=== PATIENT | male | born 1935 | race Caucasian/White ===

== ENCOUNTER 2018-03-07 09:41 | Outpatient (CLI) | payer MEDICARE ==
[2018-03-07] MEDS ORDERED: Iopamidol 370 76% 100 ML VIAL ONE (11:16)
--- NOTE | 2018-03-07 12:53 | CT ---
CTA ABDOMEN AND PELVIS WITH BILATERAL LOWER EXTERMITY RUNOFF: INDICATIONS: History of peripheral vascular disease and a nonhealing ulcer of the left foot. TECHNIQUE: Multiple CTA images were obtained of the abdomen and pelvis with bilateral lower extremity runoff, an d 3D reformatted images were constructed at a separate work station. FINDINGS: There is cardiomegaly with small bilateral pleural effusions and bibasilar atelectasis. There is pro minent paraseptal emphysema involving both lung bases. There is partial visualization of cardiac pacemaker leads involving the heart. There is prominent fatty infiltration of the liver. There are calcifications involving the pancreatic head and body, likely related to prior pancreatitis . There are bilateral renal cysts. The adrenal glands and spleen appear within normal limits. There is a prominent amount of retained stool within the rectum. There are scattered diverticula inv olving the colon. The small bowel is of normal caliber. No acute fracture is evident. There is scattered degenerative and osteoarthritic change. There is complete occlusion of the proximal to mid right superficial femoral artery. There are vascu lar collaterals going to the right BKA limb through the profunda femoral. There is no revascularizat ion seen involving the right superficial femoral or right popliteal artery. The left external iliac and left common femoral artery appear patent. The bifurcation is patent. Th ere is some mild narrowing involving the proximal left profunda artery. There are moderate to severe multifocal areas of stenosis involving the distal left superficial femoral vein and proximal left po pliteal vein. The tibioperoneal trunk is patent. The left anterior tibial and posterior tibial jesusita bijal demonstrate multifocal high-grade regions of stenosis. The peroneal artery appears patent to th e level of the ankle. There is at least single artery runoff to the level of the ankle. The renal, SMA, and celiac arteries are widely patent. There is high-grade stenosis involving the pr oximal aspect of the inferior mesenteric artery, on image 88 of series 2. IMPRESSION: 1. Multifocal areas of moderate to high grade stenosis involving the distal left superficial femoral artery and the proximal left popliteal artery with multifocal areas of high grade stenosis involving the left anterior tibial and the left posterior tibial artery. 2. Complete occlusion of the right superficial femoral artery from its mid to distal junction, throu gh the level of the right popliteal artery. 3. High grade stenosis involving the proximal left inferior mesenteric artery. 4. Findings of congestive heart failure with cardiomegaly and bilateral pleural effusions. 5. Extensive paraseptal emphysema. 6. Fatty liver. 7. Bilateral renal cysts. 8. Prominent amount of retained stool within the rectum. POS: [facility]
== END 2018-03-07 09:42 | disposition home or self-care (01) ==
LOC: CT 09:41
PROVIDERS: ATTEND Internal Medicine Cardiovascular Disease
DX: I73.9 Peripheral vascular disease, unspecified (principal); I70.203 Unspecified atherosclerosis of native arteries of extremities, bilateral legs; K55.1 Chronic vascular disorders of intestine; K76.0 Fatty (change of) liver, not elsewhere classified; N28.1 Cyst of kidney, acquired; J43.9 Emphysema, unspecified; J90 Pleural effusion, not elsewhere classified; I50.9 Heart failure, unspecified; I51.7 Cardiomegaly; K59.00 Constipation, unspecified
CPT/HCPCS: 75635; 82565

== ENCOUNTER 2018-03-08 09:00 | Outpatient (CLI) | payer MEDICARE ==
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
== END 2018-03-08 09:01 | disposition home or self-care (01) ==
LOC: WCC 09:00
PROVIDERS: ATTEND Family Medicine
DX: E11.621 Type 2 diabetes mellitus with foot ulcer (principal); L97.529 Non-pressure chronic ulcer of other part of left foot with unspecified severity; I10 Essential (primary) hypertension; I25.5 Ischemic cardiomyopathy; Z85.51 Personal history of malignant neoplasm of bladder; I25.10 Atherosclerotic heart disease of native coronary artery without angina pectoris; I48.91 Unspecified atrial fibrillation; I73.9 Peripheral vascular disease, unspecified; F03.90 Unspecified dementia, unspecified severity, without behavioral disturbance, psychotic disturbance, mood disturbance, and anxiety
CPT/HCPCS: 36416; 97602; 99204; G0463

== ENCOUNTER 2018-03-22 10:36 | Outpatient (CLI) | payer MEDICARE ==
--- NOTE | 2018-03-22 12:14 | PRG ---
DATE OF SERVICE: 03/22/2018 HISTORY: Mr. Jem Owens is a very pleasant 82-year-old gentleman, accompanied by his , who pr esents to the Wound Center for evaluation of an ulceration of the dorsum of the left foot. At the ti me of the patient's last visit, the patient's stated that the ulceration over the dorsum of the left foot was first noted 9 months previously. She stated that the ulcer "just appeared." The patie nt's stated that she had been cleansing the ulceration twice a day with Cetaphil and dressing th e wound with a clean bandage, specifically gauze, secured with tape. After being seen in the Wound C enter, dressing changes of Medihoney, gauze, and Mepilex border were initiated. These dressing boothe es have been performed every other day after cleansing and irrigation again with the assistance of th e patient's . PHYSICAL EXAMINATION: VITAL SIGNS: Temperature 97.7, pulse 81, respirations 21, blood pressure 113/61, Accu-Chek 111. EXTREMITIES: The ulceration over the dorsum of the left foot measures approximately 1.4 x 1.0 cm. T he dimensions of the wound at the time of the patient's last visit were approximately 1.3 x 1.6 cm. No purulent drainage is associated with the wound. No cellulitis of the left foot is appreciated. N o maceration of the skin of the periwound is noted. No significant edema of the left foot is present on exam today. ASSESSMENT AND PLAN: 1. Ulceration over dorsum of left foot as described above. Dressing changes of Medihoney gauze, and Mepilex border will be continued every other day after cleansing and irrigation with the assistance of the patient's . Arrangements were previously made for the home delivery of dressing supplies. I will see Mr. Owens again in 2 weeks. 2. History of subdural hematoma. 3. Ischemic cardiomyopathy. 4. Diabetes mellitus, type 2. The patient's Accu-Chek in clinic today is 111. The patient's h as been reminded that, for optimal wound healing, the patient's blood glucoses should remain below 15 0. 5. History of hypertension. 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 7. Coronary artery disease. 8. Paroxysmal atrial fibrillation. 9. Peripheral vascular disease. 10. Dementia.
== END 2018-03-22 10:37 | disposition home or self-care (01) ==
LOC: WCC 10:36
PROVIDERS: ATTEND Family Medicine
DX: E11.621 Type 2 diabetes mellitus with foot ulcer (principal); L97.529 Non-pressure chronic ulcer of other part of left foot with unspecified severity; I25.5 Ischemic cardiomyopathy; I10 Essential (primary) hypertension; I25.10 Atherosclerotic heart disease of native coronary artery without angina pectoris; I48.0 Paroxysmal atrial fibrillation; E11.51 Type 2 diabetes mellitus with diabetic peripheral angiopathy without gangrene; F03.90 Unspecified dementia, unspecified severity, without behavioral disturbance, psychotic disturbance, mood disturbance, and anxiety; Z87.820 Personal history of traumatic brain injury; Z85.51 Personal history of malignant neoplasm of bladder
CPT/HCPCS: 97602

== ENCOUNTER 2018-04-05 09:41 | Inpatient (IN) | payer MEDICARE ==
[2018-04-05] MEDS ORDERED: Sodium Chloride 0.9% 15 ML NEB ONE (10:00)
--- NOTE | 2018-04-05 10:57 | PRG ---
DATE OF SERVICE: 04/05/2018 HISTORY: Mr. Jem Owens is a very pleasant 82-year-old gentleman accompanied by his bogdan cotto presents to the [facility]ound Center for evaluation of an ulceration of the dorsum of the left foot. At t he time of the patient's visit on 03/08/2018, the patient's stated that the ulceration over the dorsum of the left foot was first noted in 9 months previously. She stated that the ulceration "just appeared." The patient's stated that she had been cleansing the ulceration twice a day with Ce taphil and dressing the wound with a clean bandage, specifically gauze secured with tape. After albert hall seen in the Wound Center, dressing changes of Medihoney, gauze and Mepilex border were initiated. These dressing changes were performed every other day after cleansing and irrigation again with the a ssistance of the patient's . Since the patient's last visit the patient's states Mr. Owens 's wound has increased in size. She states that significant drainage is associated with the wound. In addition erythema of the skin surrounding the wound is present. PHYSICAL EXAMINATION: VITAL SIGNS: Temperature 97.6, pulse 82, respirations 20, blood pressure 106/51. Accu-Chek 125. EXTREMITIES: The ulceration over the dorsum of the left foot measures approximately 2.0 x 2.0 cm. T he dimensions of the wound at the time of the patient's last visit were approximately 1.4 x 1.0 cm. No purulent drainage is associated with the wound. Erythema of the skin surrounding the wound is pre sent. No maceration of the skin of the periwound is noted. No significant edema of the left foot is present on exam today. ASSESSMENT AND PLAN: 1. Left foot cellulitis associated with the ulceration of dorsum of left foot. I have discussed the treatment plan with the patient's primary care physician, Dr. Pham. Arrangements will be made fo r admission with IV antibiotics and imaging. I have explained to the patient's that MRI of the left foot may be obtained to look for findings suggestive of osteomyelitis. In addition, arrangement s will be made for the patient to be seen in consultation by Dr. Neal. The patient's states t hat Mr. Owens has undergone percutaneous revascularization of the left lower extremity by Dr. Neal previously. The patient's understands and is in agreement with the preceding treatment plan. 2. History of subdural hematoma. 3. Ischemic cardiomyopathy. 4. Diabetes mellitus type 2. The patient's Accu-Chek in clinic today is 125. 5. History of hypertension. 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 7. Coronary artery disease. 8. Paroxysmal atrial fibrillation. 9. Peripheral vascular disease. 10. Dementia.
[2018-04-05] MEDS ORDERED: Calcium Carbonate 500 MG ChewTAB PO PRN (12:23)
[2018-04-05] MEDS ORDERED: traZODone HCl 50 MG TAB PO PRN (12:23)
[2018-04-05] MEDS ORDERED: Diabetic Tussin 200 MG/10 ML UDCUP PO PRN (12:23)
[2018-04-05] MEDS ORDERED: hydrALAZINE 20 MG/ML VIAL SLOW IVP PRN (12:23)
[2018-04-05] MEDS ORDERED: Benzonatate 100 MG CAP PO PRN (12:23)
[2018-04-05] MEDS ORDERED: Bisacodyl 5 MG TAB PO PRN (12:23)
[2018-04-05] MEDS ORDERED: Nitroglycerin 0.4 MG TAB (25 Tab Bottle) SL PRN (12:23)
[2018-04-05] MEDS ORDERED: Loratadine 10 MG TAB PO PRN (12:23)
[2018-04-05] MEDS ORDERED: Ondansetron PF 4 MG/2 ML Vial IVP PRN ×2 (12:23)
[2018-04-05] MEDS ORDERED: traMADol HCl 50 MG TAB PO PRN (12:23)
[2018-04-05] MEDS ORDERED: Acetaminophen 325 MG TAB PO PRN (12:23)
[2018-04-05] MEDS ORDERED: Mag-Al 1200 mg/1200 mg/30 ML UDCUP PO PRN (12:23)
[2018-04-05] MEDS ORDERED: Senokot 8.6 MG TAB PO PRN (12:23)
[2018-04-05] MEDS ORDERED: cloNIDine 0.1 MG TAB PO PRN (12:23)
[2018-04-05 13:02] LABS: #Eosinphils 0.1 thou/uL (0.0-0.7); #Lymphocytes 0.8 thou/uL (1.20-3.40); #Monocytes 0.6 thou/uL (0.11-0.59); #Neutrophils 5.9 thou/uL (1.40-6.50); %Basophils 0.3 % (0.0-1.0); %Eosinophils 1.5 % (0.0-10.0); %Lymphocytes 10.1 % (21.0-51.0); %Monocytes 8.1 % (0.0-10.0); Hemoglobin 14.3 g/dL (14.0-18.0); Mean Corpuscular HGB CONC 32.3 g/dL (32.0-36.0); Mean Corpuscular Hemoglobin 32.4 pg (27.0-31.0); Mean Platelet Volume 9.5 fL (7.4-10.4); Platelet Count 157 thou/uL (130-400); RBC Distribution Width 13.7 % (11.5-14.5); Red Blood Cell (RBC) Count 4.41 mill/uL (4.70-6.10); White Blood Cell (WBC) Count 7.4 thou/uL (4.8-10.8)
[2018-04-05 13:17] LABS: ALT (SGPT) 17 U/L (8-55); AST (SGOT) 18 U/L (5-34); Albumin 3.3 g/dL (3.4-4.8); Alkaline Phosphatase 101 U/L (40-150); Anion Gap 10 mmol/L (10-20); BUN (Urea Nitrogen) 22 mg/dL (8.4-25.7); Bilirubin, Total 1.7 mg/dL (0.2-1.2); Calc. Creatinine Clearance 0 mL/min (70-130); Calcium 8.4 mg/dL (7.8-10.44); Carbon Dioxide 34 mmol/L (23-31); Chloride 102 mmol/L (98-107); Estimated GFR-MDRD 81; Globulin 2.2 g/dL (2.4-3.5); Glucose 104 mg/dL (83-110); Potassium 3.3 mmol/L (3.5-5.1); Protein, Total 5.5 g/dL (5.8-8.1); Sodium 143 mmol/L (136-145)
--- NOTE | 2018-04-05 13:45 | RAD ---
LEFT FOOT 3 VIEWS: Date: 04/05/18 HISTORY: Chronic foot ulcer. Assess for osteomyelitis. Site of the foot ulcer is not specified. FINDINGS: There are prominent enthesophytes from the plantar and posterior calcaneus. Mild degenerative changes in the intertarsal joints and at the tarsometatarsal joints. The metatarsals and phalanges appear un remarkable. MTP and IP joints unremarkable with mild DJD at the first MTP joint. No lytic or destruc tive process seen. On the oblique view, there is a linear lucency through the distal aspect of the proximal phalanx of t he second toe. This is not seen in the frontal AP projection and is artifactual. IMPRESSION: No plain film evidence of osteomyelitis identified. POS: [facility]
[2018-04-05] MEDS ORDERED: Potassium Chloride 20 MEQ TAB PO SCH (15:15)
[2018-04-05 15:45] VITALS: BMI 20.3
--- NOTE | 2018-04-05 18:33 | HP ---
DATE OF ADMISSION: 04/05/2018 PRIMARY CARE PHYSICIAN: Dr. Willian Pham. CHIEF COMPLAINT: Nonhealing left foot ulcer. HISTORY OF PRESENTING ILLNESS: Mr. Owens is a very pleasant 82-year-old male with known history of ischemic cardiomyopathy status post biventricular defibrillator pacemaker placement as well as diabet es, hypertension, history of bladder cancer, coronary artery disease, and paroxysmal atrial fibrillat ion, chronic anticoagulation, severe peripheral arterial disease status post right BKA presented as a direct admit from the [facility] today for nonhealing left foot ulcer. History is mainly obt ained by the patient and his present in the room. Case has been discussed with the Wound Care [facility] enter and electronic medical records have been reviewed. The patient reports that he recently underwent a vascular study by Dr. Neal for his left foot. The y report that he has done some sort of laser procedure to open up the blockages, but he was found to have significant blockages in his left leg. They have first noticed this ulcer on his left foot about 10 months ago. Since then despite the woun d care, it has gotten worse. He was found to have left foot cellulitis associated with ulceration of the dorsum of the left foot. Care was discussed with his primary care physician by the wound care p charles, Dr. Hsu and decision was made that he would be admitted for IV antibiotics and imaging. The patient cannot undergo an MRI because of the AICD. He is now being admitted to medical floor a s a direct admit for further evaluation of the ulcer and the cellulitis. Currently, he is asymptomatic. He denies any fever or chills. He denies any trauma. He denies any pain in his leg. No paraesthesias. No muscle weakness. PAST MEDICAL HISTORY: 1. Atrial fibrillation on chronic anticoagulation. 2. Chronic ischemic cardiomyopathy with EF of 15%-20% with AICD in place. 3. Chronic systolic heart failure, follows up with Dr. Iraheta. 4. Hypertension. 5. Dyslipidemia. 6. Diabetes mellitus type 2. 7. Coronary artery disease. 8. Benign prostatic hypertrophy. 9. Hypothyroidism. 10. Dementia. 11. History of bladder cancer requiring resection. 12. History of subdural hematoma in the past. 13. History of peripheral vascular disease, status post right below knee amputation. PAST PSYCHIATRIC HISTORY: Reviewed and negative. PAST SURGICAL HISTORY: 1. Right BKA secondary to diabetic foot. 2. Bladder tumor resection. 3. History of tracheostomy and PEG tube placement and subsequent reversal. 4. History of head injury. 5. Colonoscopy. 6. Left knee surgery. 7. Cataract surgery. 8. AICD placement. ALLERGIES: 1. YARI inhibitors and ARBs. 2. BETA BLOCKERS which cause hypotension. SOCIAL HISTORY: He is and lives with his family. is at the bedside. He quit smoking m ore than 10 years ago. No history of drug or alcohol abuse. FAMILY HISTORY: Diabetes and hypertension among several family members. ALLERGIES: No strong family history of cancer or stroke. CURRENT HOME MEDICATIONS: Not updated as yet. has gone to their car to get the medications. T hey get the medicines in mail by [facility]. REVIEW OF SYSTEMS: Twelve point review of systems was done. It is negative except for those mention ed in the history and physical. LABORATORY DATA AND IMAGING DATA: I have ordered CBC and base met on him. His CBC shows WBC 7.4 wit h 80% neutrophils, otherwise unremarkable. Serum chemistry shows potassium of 3.3, bicarbonate 34, t otal bilirubin 1.7, BNP 1246. X-ray of the foot was ordered by my staff and 3-view x-ray of the left foot does not show any evidence of osteomyelitis. PHYSICAL EXAMINATION: VITAL SIGNS: Stable. GENERAL: No acute distress, awake, alert, oriented x3, resting comfortably in bed, is at bedsid e. HEENT: Mucous membrane is moist and pink. No oropharyngeal exudate or erythema. Head is normocepha lic, atraumatic. Pupils are equal and reactive to light and accommodation. Extraocular movement int act. NECK: Supple without any lymphadenopathy, JVD or bruit. CHEST: Clear to auscultation without any wheezing, rales or rhonchi. Irregularly irregular rhythm w ithout any significant murmur. ABDOMEN: Soft, nontender and nondistended with positive bowel sounds. EXTREMITIES: Left lower extremity examination showed pitting edema +2 extending from the foot to mid calf. His left foot is in the dressing. No obvious oozing noticed on the dressing. No obvious edu n. He is status post right BKA. NEUROLOGIC: Nonfocal. SKIN: Free of any rashes or bruises. Feels warm and dry to touch. PSYCHIATRIC: Normal affect. IMPRESSION AND PLAN: 1. Chronic nonhealing left lower extremity diabetic ulcer. The patient has evidence of poor circula tion on aortogram done by Dr. Neal in 03/07/2018. I am not sure if any intervention was done at th is time, but it seems like the patient will require some sort of angioplasty for proper healing of hi s left lower extremity ulcer. There is no evidence of osteomyelitis at this time. We will request c onsultation with Infectious Disease and wound care to start with, and possibly with Dr. Neal or CV surgeon based on his recommendations. At this time, he will be treated with broad spectrum IV antibi otics and we will send blood cultures. There is no evidence to suggest sepsis at this time. 2. Left leg cellulitis, see #1. 3. Severe peripheral vascular disease. We will consult Cardiovascular Surgery for left lower extrem ity angioplasty if the patient agrees to that and if Dr. Neal from Cardiology recommends that. 4. Hypokalemia. We will replace potassium and recheck in the morning. 5. Elevated BNP. The patient has chronically elevated BNP secondary to his history of ischemic card iomyopathy. Currently, he is asymptomatic and not in any decompensated congestive heart failure. We will resume his home medications of Demadex once confirmed. Ischemic cardiomyopathy, status post AI CD placement. The patient is allergic to YARI INHIBITORS, ARBs, and BETA BLOCKERS. He will be restar tatyana on his diuretic. 6. Chronic atrial fibrillation. We will resume his anticoagulation with Eliquis 2.5 mg p.o. b.i.d. For the medications, we will reconsult. He was on digoxin in the past. 7. Benign prostatic hypertrophy. Continue home medication of Proscar once dose is confirmed. 8. Hypothyroidism. Resume Synthroid once the dose is confirmed. 9. Dyslipidemia. Resume Lipitor once the dose is confirmed. 10. Microcytic anemia. Continue vitamin B12 and B6 as per home dosages per the prior H&P. 11. Deep venous thrombosis and gastrointestinal prophylaxis, on p.r.n. medications. DISPOSITION: Mr. Owens is currently being admitted to the hospital for evaluation and care of nonhe aling chronic left foot diabetic ulcer. Estimated length of stay at this time is at least 2-3 midnig hts. Further management will depend upon his clinical course.
[2018-04-05] MEDS ORDERED: guaiFENesin ER 600 MG TAB PO PRN (19:18)
[2018-04-05] MEDS ORDERED: Azelastine 137 MCG/Spray 30 ML NS PRN (19:18)
[2018-04-05] MEDS ORDERED: VANCOMYCIN IVPB PRN (20:03)
[2018-04-05] MEDS ORDERED: Insulin Glargine 14 UNITS in Pre-Filled Syringe 1 EACH SC SCH (21:00)
[2018-04-05] MEDS ORDERED: INSULIN DETEMIR SC SCH (21:00)
[2018-04-05] MEDS ORDERED: Atorvastatin Calcium 20 MG TAB PO SCH (21:00)
[2018-04-05] MEDS: Apixaban 2.5 MG TAB PO SCH (21:28)
[2018-04-05] MEDS: Piperacillin/Tazobactam 3.375 GM in Sodium Chloride 0.9% 100 ML IVPB SCH (21:29)
[2018-04-05] MEDS: Famotidine 20 MG TAB PO SCH (21:29)
[2018-04-05] MEDS ORDERED: Vancomycin HCl 1 GM in Premix Bag 1 BAG IVPB SCH (22:00)
[2018-04-05 23:58] LABS: Bilirubin Small (Negative); Blood, Urine Negative (Negative); Clarity CLEAR (Clear); Glucose, Urine (Dipstick) Negative (Negative); Leukocyte Negative (Negative); Nitrite Negative (Negative); Protein, Urine (Dipstick) 30 mg/dL (Neg-Trace); Specific Gravity, Urine 1.015 (1.002-1.036)
[2018-04-06 00:01] LABS: Bacteria/HPF None Seen HPF (None Seen); Hyaline Casts/LPF 0-3 HYALINE CAST LPF (0-3 Hyaline); RBC/HPF 0-3 HPF (0-3); Squamous Epithelial None Seen HPF (0-3); WBC/HPF None Seen HPF (0-3)
[2018-04-06] MEDS: Piperacillin/Tazobactam 3.375 GM in Sodium Chloride 0.9% 100 ML IVPB SCH ×2 (03:35→12:24)
[2018-04-06 06:04] LABS: #Eosinphils 0.1 thou/uL (0.0-0.7); #Lymphocytes 0.7 thou/uL (1.20-3.40); #Monocytes 0.6 thou/uL (0.11-0.59); %Basophils 0.4 % (0.0-1.0); %Eosinophils 1.9 % (0.0-10.0); %Monocytes 9.8 % (0.0-10.0); %Neutrophils 76.9 % (42.0-75.0); Hemoglobin 14.1 g/dL (14.0-18.0); Mean Corpuscular HGB CONC 32.4 g/dL (32.0-36.0); Mean Corpuscular Hemoglobin 32.7 pg (27.0-31.0); Mean Platelet Volume 9.1 fL (7.4-10.4); Platelet Count 148 thou/uL (130-400); RBC Distribution Width 13.7 % (11.5-14.5); Red Blood Cell (RBC) Count 4.32 mill/uL (4.70-6.10); White Blood Cell (WBC) Count 6.5 thou/uL (4.8-10.8)
[2018-04-06 06:14] LABS: Anion Gap 11 mmol/L (10-20); BUN (Urea Nitrogen) 23 mg/dL (8.4-25.7); Calc. Creatinine Clearance 68 mL/min (70-130); Calcium 8.7 mg/dL (7.8-10.44); Carbon Dioxide 30 mmol/L (23-31); Chloride 106 mmol/L (98-107); Estimated GFR-MDRD 88; Glucose 146 mg/dL (83-110); Potassium 3.7 mmol/L (3.5-5.1); Sodium 143 mmol/L (136-145)
[2018-04-06] MEDS: Famotidine 20 MG TAB PO SCH (08:18)
[2018-04-06] MEDS: Apixaban 2.5 MG TAB PO SCH (08:20)
--- NOTE | 2018-04-06 08:55 | CON ---
DATE OF CONSULTATION: 04/05/2018 REASON FOR CONSULTATION: Ulcer in dorsal aspect of the left foot. HISTORY OF PRESENT ILLNESS: An 82-year-old who has a history of ischemic cardiomyopathy with AICD in place, an EF of 15%-20%, hypertension, type 2 diabetes, and chronic lung disease with honeycombing and recurrent admissions for infectious pneumonitis. I saw him in October and at that time, he was given antimicrobials with a rotating schedule, but seems to have improved the frequency of readmissions in fact they has not had admissions since October of last year for pneumonia, but now he has developed this chronic ulcer in the dorsal aspect of the left foot, round shaped, is painless, although patient has significant diabetic neuropathy. The patient was admitted because of worsening of the appearance of the ulceration. He has had a prior right BKA and there was a concern in the part of the family regarding possibility of amputation. Patient recently had a revascularization procedure of the left lower extremity performed by Dr. Neal. Currently, he is awake. Denies any headaches, visual symptoms, sore throat, odynophagia, or dysphagia. No cough, sputum production, or chest pain. No abdominal pain, diarrhea, or genitourinary symptoms. PAST MEDICAL HISTORY: Subdural hematoma, ischemic cardiomyopathy, type 2 diabetes, hypertension, interstitial lung disease with honeycombing/COPD, transitional cell CA of the bladder in remission, coronary artery disease, ischemic cardiomyopathy with EF 15-20%, peripheral vascular disease, prior right BKA, dementia. PAST SURGICAL HISTORY: AICD implant, tracheostomy, gastrostomy tube. CURRENT MEDICATIONS: Maalox, Tessalon, Dulcolax, Tums, Catapres, Pepcid, Robitussin, Apresoline, Claritin, Nitrostat, trazodone. PHYSICAL EXAMINATION: VITAL SIGNS: T-max 97.8, blood pressure 107/60, pulse 81, respirations 18, O2 sat 95%. SKIN: Shows the round-shaped ulcer in the dorsal aspect of the left foot, measuring about 1.5 cm. There is an area of kind of dark reddish tissue at the base, possible tendon exposure along the middle portion of this ulceration. No significant undermining. Very mild pinkish erythema surrounding the margins. The right BKA stump appears normal and the patient has a peripheral IV access. No Joseph catheter. HEENT: Ocular movements are conjugate. Oral cavity normal. NECK: Supple. No jugular venous distention. LUNGS: With symmetric air entry. HEART: S1, S2, regular rate. ABDOMEN: Soft, not distended, no bladder distention. EXTREMITIES: He is able to move extremities on command. NEUROLOGIC: He is awake, oriented, follows commands. Recollection is limited from his cognitive issues. LABORATORY AND DIAGNOSTIC DATA: White cell count 7.4, hemoglobin 14, platelets 157,000, 80% neutrophils. Potassium 3.3, creatinine 0.9, bilirubin 1.7. Transaminases normal, alkaline phosphatase 101, albumin 2.3. The patient had an x-ray, which showed no evidence of bony abnormalities. Patient has an aorta with runoff, which showed multiple areas of obstruction in the left lower extremity, which led to the revascularization procedure. It appears to have been an angioplasty and he may have had some other interventions as well. ASSESSMENT: Type 2 diabetes; chronic obstructive pulmonary disease with honeycombing; ischemic cardiomyopathy, EF 15-20%; peripheral vascular disease with prior [id number], right side; chronic ulcer in right foot dorsal aspect , round shaped, which has enlarged a little bit since last visit. DISCUSSION: The ulcer appears more consistent with the arterial insufficiency ulceration rather than venous insufficiency. The absence of pain is most likely due to diabetic neuropathy. I do not think there is evidence to suggest any infectious complication at this point and hopefully the revascularization procedure will assist in the healing of this problem. Continue management limited to the wound care only. GRACIE
[2018-04-06] MEDS ORDERED: Donepezil HCl 10 MG TAB PO SCH (09:00)
[2018-04-06] MEDS ORDERED: Digoxin 0.125 MG TAB PO SCH (09:00)
[2018-04-06] MEDS ORDERED: Cyanocobalamin (Vitamin B-12) 1,000 MCG TAB PO SCH (09:00)
[2018-04-06] MEDS ORDERED: Finasteride 5 MG TAB PO SCH (09:00)
[2018-04-06] MEDS ORDERED: Dextrose 5% in Water 1,000 ML IV PRN (09:16)
[2018-04-06] MEDS ORDERED: HumaLOG 300 UNITS/3 ML VIAL SC PRN ×2 (09:16)
[2018-04-06] MEDS ORDERED: Dextrose 50% Abboject 50 ML SYRINGE SLOW IVP PRN (09:16)
[2018-04-06 13:27] VITALS: BP 111/73; TEMP 97.7
--- NOTE | 2018-04-06 14:17 | PDOC.PN ---
- Subjective Encounter Start Date: 04/06/18 Encounter Start Time: 14:15 Subjective: feels well. no new complaints -: care discussed w at bedside. -: declines any DC needs if Dced home. - Objective MAR Reviewed: Yes Vital Signs & Weight: Vital Signs (12 hours) Temp Pulse Resp BP BP Pulse Ox 04/06/18 12:00 97.7 F 80 18 111/73 98 04/06/18 08:19 83 04/06/18 08:00 97.6 F 83 18 92 L 04/06/18 07:35 97.6 F 83 16 113/68 04/06/18 04:24 98.0 F 79 18 106/66 92 L Weight Admit Weight 158 lb 4.8 oz Weight 158 lb 4.8 oz Result Diagrams: 04/06/18 05:22 04/06/18 05:22 Additional Labs: Accuchecks 04/06/18 04/05/18 04/05/18 04:29 21:06 09:50 POC Glucose 129 H 145 H 125 H Microbiology 04/05/18 15:31 Venous blood - Right Arm Blood Culture - Preliminary Specimen has been received and culture in progress. No Growth to date. 04/05/18 15:24 Venous blood - Left Arm Blood Culture - Preliminary Specimen has been received and culture in progress. No Growth to date. labs reviewed Phys Exam - Physical Examination Constitutional: NAD HEENT: PERRLA, moist MMs, sclera anicteric, oral pharynx no lesions Neck: no nodes, no JVD, supple, full ROM Respiratory: no wheezing, no rales, no rhonchi, clear to auscultation bilateral Cardiovascular: RRR, no significant murmur, no rub Gastrointestinal: soft, non-tender, no distention, positive bowel sounds Musculoskeletal: no edema, pulses present Neurological: non-focal, normal sensation, moves all 4 limbs Dx/Plan (1) Diabetic foot ulcer Code(s): E11.621 - TYPE 2 DIABETES MELLITUS WITH FOOT ULCER; L97.509 - NON- PRESSURE CHRONIC ULCER OTH PRT UNSP FOOT W UNSP SEVERITY Status: Acute Qualifiers: Laterality: left (2) Ischemic cardiomyopathy Code(s): I25.5 - ISCHEMIC CARDIOMYOPATHY Status: Chronic (3) AICD (automatic cardioverter/defibrillator) present Code(s): Z95.810 - PRESENCE OF AUTOMATIC (IMPLANTABLE) CARDIAC DEFIBRILLATOR Status: Chronic (4) Atrial fibrillation Code(s): I48.91 - UNSPECIFIED ATRIAL FIBRILLATION Status: Chronic (5) Chronic anticoagulation Code(s): Z79.01 - RADIOACTIVITY TECHNICIAN (CURRENT) USE OF ANTICOAGULANTS Status: Chronic (6) Diabetes mellitus type 2 Code(s): E11.9 - TYPE 2 DIABETES MELLITUS WITHOUT COMPLICATIONS Status: Chronic (7) Dyslipidemia Code(s): E78.5 - HYPERLIPIDEMIA, UNSPECIFIED Status: Chronic (8) HYPERTENSION Status: Chronic (9) PAD (peripheral artery disease) Code(s): I73.9 - PERIPHERAL VASCULAR DISEASE, UNSPECIFIED Status: Chronic Comment: s/p R BKA - Plan plan discussed w/ family, out of bed/ambulate, DVT proph w/SCDs Wound Pictures noted.no evidence of infection,no cellulitis.Stop ABx -: discussed w ID . -: will consult per Pt's request for PAD-recent angiogram done -: if no further clinical intervention required inpt,will DC home -: declines need for HH/placement.Hd stable. * .home meds as below. Review of Systems - Review of Systems Constitutional: negative: fever, chills, sweats, weakness, malaise, other ENT: negative: Ear Pain, Ear Discharge, Nose Pain, Nose Discharge, Nose Congestion, Mouth Pain, Mouth Swelling, Throat Pain, Throat Swelling, Other Respiratory: negative: Cough, Dry, Shortness of Breath, Hemoptysis, SOB with Excertion, Pleuritic Pain, Sputum, Wheezing Cardiovascular: negative: chest pain, palpitations, orthopnea, paroxysmal nocturnal dyspnea, edema, light headedness, other Gastrointestinal: negative: Nausea, Vomiting, Abdominal Pain, Diarrhea, Constipation, Melena, Hematochezia, Other Genitourinary: negative: Dysuria, Frequency, Incontinence, Hematuria, Retention , Other Musculoskeletal: negative: Neck Pain, Shoulder Pain, Arm Pain, Back Pain, Hand Pain, Leg Pain, Foot Pain, Other Skin: negative: Rash, Lesions, Sinan, Bruising, Other Neurological: negative: Weakness, Numbness, Incoordination, Change in Speech, Confusion, Seizures, Other - Medications/Allergies Allergies/Adverse Reactions: Allergies Allergy/AdvReac Type Severity Reaction Status Date / Time YARI Inhibitors Allergy Mild Verified 04/05/18 18:27 ARB-Angiotensin Receptor Allergy Mild Verified 04/05/18 18:28 Antagonist Beta-Blockers Allergy Mild Verified 04/05/18 18:28 (Beta-Adrenergic Bloc Medications: Current Medications Acetaminophen (Tylenol) 650 mg PO Q4H PRN PRN Reason: Headache/Fever or Pain Al Hydroxide/Mg Hydroxide (Maalox) 30 ml PO Q6H PRN PRN Reason: Heartburn or Indigestion Apixaban (Eliquis) 2.5 mg PO BID [facility] Last Admin: 04/06/18 08:20 Dose: 2.5 mg Atorvastatin Calcium (Lipitor) 20 mg PO HS [facility] Last Admin: 04/05/18 21:29 Dose: Not Given Azelastine HCl (Azelastine) 1 ml NS BIDPRN PRN PRN Reason: Allergies Benzonatate (Tessalon) 100 mg PO Q4H PRN PRN Reason: Cough Bisacodyl (Dulcolax) 10 mg PO DAILYPRN PRN PRN Reason: Constipation Calcium Carbonate (Tums) 1,000 mg PO Q4H PRN PRN Reason: Heartburn or Indigestion Clonidine (Catapres) 0.1 mg PO Q4H PRN PRN Reason: Systolic BP > 160 Cyanocobalamin (Vitamin B-12) 500 mcg PO DAILY [facility] Last Admin: 04/06/18 08:19 Dose: 500 mcg Dextrose/Water (Dextrose 50%) 25 gm SLOW IVP PRN PRN PRN Reason: Hypoglycemia Digoxin (Lanoxin) 0.125 mg PO DAILY [facility] Last Admin: 04/06/18 08:19 Dose: 0.125 mg Donepezil HCl (Aricept) 10 mg PO DAILY [facility] Last Admin: 04/06/18 08:19 Dose: 10 mg Famotidine (Pepcid) 20 mg PO BID [facility] Last Admin: 04/06/18 08:18 Dose: 20 mg Finasteride (Proscar) 5 mg PO DAILY [facility] Last Admin: 04/06/18 08:19 Dose: 5 mg Glucagon (Glucagon) 1 mg IM PRN PRN PRN Reason: Hypoglycemia Guaifenesin (Robitussin Sf) 200 mg PO Q4H PRN PRN Reason: Cough Guaifenesin (Mucinex) 600 mg PO Q12H PRN PRN Reason: Cough Hydralazine HCl (Apresoline) 10 mg SLOW IVP Q4H PRN PRN Reason: Systolic BP > 170 Insulin Glargine 14 units/ (Miscellaneous Medication) 0.14 mls @ 0 mls/hr SC [facility] Last Admin: 04/05/18 21:29 Dose: 0.14 mls Dextrose/Water (D5w) 1,000 mls @ 0 mls/hr IV .Q0M PRN PRN Reason: Hypoglycemia Insulin Human Lispro (Humalog) 0 units SC .MODERATE SLIDING SC PRN PRN Reason: Moderate Correctional Scale Insulin Human Lispro (Humalog) 0 units SC .BEDTIME SLIDING SC PRN PRN Reason: Bedtime Correctional Scale Loratadine (Claritin) 10 mg PO DAILYPRN PRN PRN Reason: Sinus Symptoms Nitroglycerin (Nitrostat) 0.4 mg SL Q5MIN PRN PRN Reason: Chest Pain Ondansetron HCl (Zofran) 4 mg IVP Q6H PRN PRN Reason: Nausea/Vomiting Senna (Senokot) 2 tab PO HSPRN PRN PRN Reason: Constipation Tramadol HCl (Ultram) 50 mg PO Q4H PRN PRN Reason: Moderate Pain (4-6) Trazodone HCl (Desyrel) 50 mg PO HSPRN PRN PRN Reason: Insomnia
--- NOTE | 2018-04-07 02:04 | CON ---
DATE OF CONSULTATION: 04/06/2018 INDICATION FOR CONSULTATION: An 82-year-old patient with significant peripheral vascular disease wit h a nonhealing ulcer of the left lower extremity on the foot. We were asked to see him due to the hi story of this peripheral vascular disease. He has recently been seen by Dr. Neal and has had under gone a distal aortogram with a runoff to lower extremities and also intervention to try to open the l eft lower extremity arteries to see if he can get better circulation in order to decrease the risk of amputation of the lower extremity. He has already undergone a previous amputation below the knee on the right lower extremity. He has a nonhealing ulcer. It was felt to be somewhat infected when he was seen [facility] and he was advised admission to the hospital. I believe he has bee n seen by Dr. Ball. There has been no acute infection noted, and according to the records dictated and evaluation by Dr. Neal, there is no further intervention that can be performed at this time due to the severe peripheral vascular disease noted in the left lower extremity. PAST MEDICAL HISTORY: Please refer the notes dictated by the nurse practitioner Frances. SOCIAL HISTORY: Please refer the notes dictated by the nurse practitioner Frances. FAMILY HISTORY: Please refer the notes dictated by the nurse practitioner Frances. REVIEW OF SYSTEMS: Please refer the notes dictated by the nurse practitioner Frances. MEDICATIONS: Please refer the notes dictated by the nurse practitioner Frances. ALLERGIES: Please refer the notes dictated by the nurse practitioner Frances. PHYSICAL EXAMINATION: GENERAL: Reveals an elderly gentleman, who is in no acute distress at this time. He is alert and or iented. He is somewhat older, but is very alert and aware of what is going on. VITAL SIGNS: His blood pressure was 111/73, heart rate is 80 and appears to be regular at this time, respiratory rate is 18. He is afebrile. O2 saturations are 98%. HEENT: Reveals the head to be normocephalic, atraumatic. NECK: Carotid pulses are present. CHEST: Clear to auscultation. There are no rales, rhonchi or wheezing. CARDIOVASCULAR: Reveals a regular rate and rhythm. I did not hear any significant murmurs, heaves, thrills, bruits, or rubs. ABDOMEN: Soft and nontender. Positive bowel sounds are present. EXTREMITIES: Showed evidence of a right [id number] amputation. The left has a nonhealing ulcer of the left foot. I cannot palpate pedal pulses. No popliteal pulses. NEUROLOGIC: He appears to be awake, alert, and oriented. He does follow commands. He answers quest ions appropriately and is still relatively overall coherent. Physical examination otherwise is unremarkable. He is in a wheelchair at this time and has a right B KA. LABORATORY DATA: Please refer to the notes already dictated. IMPRESSION: 1. Nonhealing left lower extremity ulcerations, which is due to his peripheral vascular disease from diabetes and also from history possibly of smoking in the past. We will continue to follow the luis a ent, but most likely he will just need wound care. There is no further intervention that can be perf ormed at this time according to the records. 2. History of diabetes. This will be dealt with by primary care service. 3. History of cardiomyopathy. I did not mention that earlier, but he has cardiomyopathy with ejecti on fraction of 15%-20%, and I believe he already has an AICD in place. We will need this confirmed. He will follow up with his primary care or his primary manager family, which I believe is Dr. Iraheta. At this time, he from a cardiac standpoint would be able to be discharged home later today, as there is very little other we have to offer to this gentleman except for medical management.
--- NOTE | 2018-04-07 08:32 | CON ---
DATE OF CONSULTATION: 04/06/2018 PRIMARY CARE PHYSICIAN: Willian Pham MD PRIMARY ENCEPHALOGRAPHER: Farheen Iraheta MD REFERRING PHYSICIAN: Dr. Puri. REASON FOR CARDIOLOGY CONSULTATION: Peripheral artery disease. HISTORY OF PRESENT ILLNESS: Mr. Owens is a very present funny 82-year-old male with significant history of pulmonary artery disease, diabetes type 2, hypertension, coronary artery disease with history of stent placement in 1999, history of subdermal hematoma, hyperlipidemia, and chronic atrial fibrillation. The patient has a long history of peripheral artery disease. He has a history of right below-knee amputation in 08/2010. The patient's primary mill roll operator is Dr. Iraheta. The patient was referred to Dr. Neal for peripheral artery disease. In November 2017, patient underwent laser atherectomy and angioplasty to the left superficial femoral arteries, left popliteal arteries, and left tibioperoneal trunk; and selective angiography of right common femoral arteries. He underwent CT angiogram with bilateral lower extremity runoff in 02/2018. Due to the result, the patient was told that the patient was not a good candidate for bypass. Yesterday, when the patient was at the wound care doctor's office, Dr. Hsu instructed the patient to present to [facility] for worsening of right foot ulcer evaluation and treatment. The patient was already seen by Wound Care team and Infectious Disease, Dr. Ball today. The patient was told by the wound care nurse that the patient should continue current wound care treatment. Also, Dr. Ball stated that the patient's condition is most likely due to no infectious complications and recommended revascularization procedure for assisting the healing of the site and suggested continued management. During the initial cardiology assessment, the patient denied chest pain, discomfort, palpitations, fluttering in his chest, dizziness, lightheadedness, nausea, vomiting, numbness in the left upper extremities, or any other cardiac complaints. The patient had a history of coronary artery disease with stent placement in 1999 in [place]. The patient has also history of ischemic cardiomyopathy with defibrillator placement in 2003 and latest upgrade was August 2015 to the biventricular AICD. An echocardiogram was done in 02/2016, which shows EF of 15 %-20%, akinesis of anterior wall apex and septum, [id number] mitral valve regurgitation, [id number]-rp-djiwoq tricuspid regurgitation and LAE. Carotid Doppler study was done in 11/2017, which shows moderate stenosis of the left carotid bulb and left ICA, less than 50% stenosis of the right carotid arteries , [id number] atherosclerosis of left bulb and left ICA, mild atherosclerosis of the right CCA. The patient's biventricular AICD was interrogated in 12/2017, which shows VVIR pacing more than 90% and with normal functions. The patient has a history of chronic atrial fibrillation, status post cardioversion in 12/2007. PAST MEDICAL HISTORY: 1. Peripheral artery disease. 2. Chronic atrial fibrillation. 3. Coronary artery disease and history of stent placement in 1999. 4. Hypertension. 5. Diabetes type 2. 6. Chronic systolic heart failure. 7. Ischemic cardiomyopathy with defibrillator placement. 8. Dyslipidemia. 9. History of subdermal hematoma in 2009. 10. 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 He is on Aricept. PAST SURGICAL HISTORY: Coronary artery stent placement in 1999; biventricular defibrillator placement and last upgrade was August 2015; status post right BKA in 08/2010; bladder cancer with chemo bladder rinse in 2005 and 2006, patient on remission at this moment. FAMILY HISTORY: The patient's father has a history of diabetes. The patient's mother has a history of Alzheimer. The patient's older brother has a history of congestive heart failure. SOCIAL HISTORY: He is , has 3 children who are alive and live well. He is an ex-smoker. He quit in 1989. He continues to drink [employer] one glass per day. He drinks one cup of coffee a day and he rarely has soft drink. ALLERGIES: He is allergic to BETA JIAN, YARI INHIBITOR. Both medications make the patient's blood pressure very hypotensive. HOME MEDICATIONS: Synthroid 50 mcg per day; potassium 20 mEq once a day; Eliquis 2.5 mg twice a day; Lipitor 20 mg once a day; digoxin 0.125 mg once a day; Levemir 14 units subcu at night; Mucinex 600 mg p.o. twice a day as needed ; vitamin B6, 100 mg once a day; vitamin B12, 500 mcg per day; finasteride 5 mg once a day, azelastine 1 spray to each naris twice a day as needed, Aricept 10 mg once a day, torsemide 30 mg once a day, levocetirizine dihydrochloride 5 mg once a day. REVIEW OF SYSTEMS: 12-point review of systems was negative, unless mentioned in the HPI. The patient denied hematoma, blood in the stool or urine, or any bruise to the extremities except the ulcer on the left foot. PHYSICAL EXAMINATION: VITAL SIGNS: Blood pressure 111/73, temperature 97.7, pulse 80, respiratory rate 18, O2 saturation 98% with room air. GENERAL: No acute distress. The patient is well developed and well nourished, without any acute distress. HEAD: Normocephalic, atraumatic. EYES: Extraocular muscle movements are intact. ENT: Nasal and oral mucosa moist without lesion. NECK: Supple. No JVD. Normal range of motion. LUNGS: Clear to auscultation bilaterally. No wheeze, rhonchi, or rub noted. CARDIOVASCULAR: Regular rate and rhythm. No significant murmur, hives, thrill , bruit, or rub noted. Very diminished pulses in bilateral popliteal arteries and left posterior tibial pulses. Unable to check pulses on the bilateral dorsal pedis due to the amputation of right foot and dressing on the left foot. Carotid pulses are present without bruit or thrill noted. They have 1 to 2+ pulses with discoloration to the left lower extremity. The patient had not taken yesterday and today's Lasix dose. ABDOMEN: Soft, nontender. No mass to palpate. Nondistended. Hypoactive bowel sounds. MUSCULOSKELETAL: Able to move all extremities. He is using wheelchair at this moment. SKIN: Warm and dry. No skin rash, lesion, or bruise noted. Again, the discoloration to the left lower extremities. NEUROLOGIC: Awake, alert, oriented x4, nonfocal. PSYCHIATRIC: Mood and affect are normal. LABORATORY DATA: WBC 6.5, hemoglobin 14.1, hematocrit 43.3, platelet 148. Sodium 143, potassium 3.7, BUN 23, creatinine 0.83. BNP is actually 1246. DIAGNOSTIC DATA: EKG: There is no EKG in his chart at this moment. The patient's foot x-ray showed no evidence of osteomyelitis. ASSESSMENT AND PLAN: 1. Peripheral artery disease, in November 2017, status post treatment with atherectomy and angioplasty. According to Dr. Neal who performed a CT angio with bilateral runoff in 02/2018, the patient is not a good candidate for bypass and suggested for continued medical treatment only at this moment. The patient is on atorvastatin 20 mg once a day and also Eliquis 2.5 mg twice a day. 2. Chronic atrial fibrillation. The patient's heart rate is stable at this moment with Digoxin 0.125 mg once a day and Eliquis at 2.5 mg twice a day. We would like to continue those medications. 3. Ischemic cardiomyopathy with ejection fraction 15% to 20%. He is on biventricular AICD defibrillator. Unfortunately, the patient cannot tolerate YARI inhibitor or ARB. The patient may not able to tolerate Entresto. At this moment, although the patient's BNP is more than 1000, the patient's condition is stable at this moment. We would like to continue current medication. 4. Chronic systolic heart failure. The patient's condition is stable at this moment with Lasix, which he had not taken today. The patient and family preferred taking that medicine once the patient got home today. 5. Coronary artery disease with stent placement. The patient is on statin medication. The patient cannot tolerate beta jian, YARI, or ARB due to hypotension. The patient's condition is stable at this moment. We would like to continue to monitor. 6. Hypertension. The patient's blood pressure is stable at this moment. 7. Diabetes type 2, managed by the primary care doctor. 8. Hyperlipidemia. The patient is on statin medication. Thank you very much for allowing the Cardiology service to participate in the care of this patient. We will follow along with the patient's care team and make recommendations as appropriate. At this moment, the patient's condition is stable enough to be discharged home, but I would like to defer to Dr. Diaz. GRACIE
--- NOTE | 2018-04-07 14:52 | DIS ---
DATE OF ADMISSION: 04/05/2018 DATE OF DISCHARGE: 04/06/2018 CONDITION AT THE TIME OF DISCHARGE: Stable and improved. DISCHARGE DISPOSITION: Home. DISCHARGE DIAGNOSES: 1. Left foot diabetic ulcer. 2. Chronic ischemic cardiomyopathy. 3. Automatic implantable cardioverter-defibrillator present. 4. Chronic atrial fibrillation. 5. Chronic anticoagulation. 6. Diabetes mellitus type 2. 7. Dyslipidemia. 8. Hypertension. 9. Peripheral arterial disease. DISCHARGE MEDICATIONS: Remain the same as the home medications. Please see admission H and P for de tail. INHOUSE CONSULTATION: 1. Infectious Disease, Dr. Ball. 2. Cardiology, Dr. Blayne Diaz. PROCEDURES DONE IN THE HOSPITAL: X-ray of the foot, which has no evidence of osteomyelitis. HISTORY OF PRESENTING ILLNESS AND BRIEF HOSPITAL COURSE: Mr. Owens is an 82-year-old old male with known history of diabetes, ischemic cardiomyopathy, status post AICD as well as hypertension, dyslipi demia, coronary artery disease, who presented as a direct admit from wound care clinic. He was noted to have difficulty to heal chronic ulcer of the left foot. It was felt that he needs to have rule o ut cellulitis and osteomyelitis and needed IV antibiotics. He could not undergo MRI because of the A ICD and was admitted to medical floor on IV antibiotics. Infectious Disease was consulted. Please s ee admission history and physical for further details. HOSPITAL COURSE: The patient was seen by Infectious Disease specialist, Dr. Ball and underwent a fo ot x-ray. There was no evidence of infection in his chronic left ulcer and antibiotics were disconti nued. He had vascular insufficiency and is under the care of Dr. Neal as an outpatient. At this [facility], Cardiology was also consulted given family's request and Dr. Diaz saw the patient for Dr. Neal . They had nothing new to offer, but follow up as an outpatient. He was cleared by Cardiology and I D for discharge and was discharged. He was seen and examined prior to discharge. Please see hospitalist progress note from the day of [facility] for further detail. No antibiotics were given as there was no evidence of infection and engine emission technician ashli left foot vascular ulcer.
== END 2018-04-06 17:35 | disposition home or self-care (01) | DRG 300 ==
LOC: WCC 09:41 → T4-B 11:28
PROVIDERS: ADMIT Internal Medicine; ATTEND Internal Medicine
DX: E11.51 Type 2 diabetes mellitus with diabetic peripheral angiopathy without gangrene (principal); L03.116 Cellulitis of left lower limb; I13.0 Hypertensive heart and chronic kidney disease with heart failure and stage 1 through stage 4 chronic kidney disease, or unspecified chronic kidney disease; I50.22 Chronic systolic (congestive) heart failure; J84.9 Interstitial pulmonary disease, unspecified; E11.621 Type 2 diabetes mellitus with foot ulcer; E78.5 Hyperlipidemia, unspecified; Z87.891 Personal history of nicotine dependence; Z79.4 Long term (current) use of insulin; E03.9 Hypothyroidism, unspecified; I25.2 Old myocardial infarction; I25.10 Atherosclerotic heart disease of native coronary artery without angina pectoris; Z95.5 Presence of coronary angioplasty implant and graft; L97.529 Non-pressure chronic ulcer of other part of left foot with unspecified severity; E87.6 Hypokalemia; I25.5 Ischemic cardiomyopathy; Z85.51 Personal history of malignant neoplasm of bladder; I48.0 Paroxysmal atrial fibrillation; Z79.01 Long term (current) use of anticoagulants; Z89.511 Acquired absence of right leg below knee; N18.2 Chronic kidney disease, stage 2 (mild); E11.22 Type 2 diabetes mellitus with diabetic chronic kidney disease; N40.0 Benign prostatic hyperplasia without lower urinary tract symptoms; F03.90 Unspecified dementia, unspecified severity, without behavioral disturbance, psychotic disturbance, mood disturbance, and anxiety; Z88.8 Allergy status to other drugs, medicaments and biological substances; D50.9 Iron deficiency anemia, unspecified; Z99.3 Dependence on wheelchair; Z95.810 Presence of automatic (implantable) cardiac defibrillator
CPT/HCPCS: 36415; 36416; 80048; 80053; 81003; 81015; 83880; 85025; 87040; 97602; A4218; G8978-GP-CJ; G8979-GP-CI; G8987-GO-CI; G8988-GO-CI; G8989-GO-CI; J2543; J3370; J7050

== ENCOUNTER 2018-04-23 15:11 | Emergency (ER) | payer MEDICARE ==
[2018-04-23 16:11] LABS: #Eosinphils 0.1 thou/uL (0.0-0.7); #Monocytes 1.2 thou/uL (0.11-0.59); #Neutrophils 7.9 thou/uL (1.40-6.50); %Basophils 0.2 % (0.0-1.0); %Eosinophils 0.9 % (0.0-10.0); %Lymphocytes 9.8 % (21.0-51.0); %Neutrophils 77.1 % (42.0-75.0); Hemoglobin 13.8 g/dL (14.0-18.0); Mean Corpuscular HGB CONC 33.5 g/dL (32.0-36.0); Mean Corpuscular Hemoglobin 33.1 pg (27.0-31.0); Mean Corpuscular Volume 98.7 fL (78.0-98.0); Mean Platelet Volume 8.3 fL (7.4-10.4); Platelet Count 218 thou/uL (130-400); RBC Distribution Width 13.1 % (11.5-14.5); Red Blood Cell (RBC) Count 4.18 mill/uL (4.70-6.10); White Blood Cell (WBC) Count 10.2 thou/uL (4.8-10.8)
[2018-04-23 16:35] LABS: ALT (SGPT) 20 U/L (8-55); AST (SGOT) 24 U/L (5-34); Albumin 3.1 g/dL (3.4-4.8); Alkaline Phosphatase 121 U/L (40-150); Anion Gap 14 mmol/L (10-20); BUN (Urea Nitrogen) 29 mg/dL (8.4-25.7); Bilirubin, Total 1.2 mg/dL (0.2-1.2); Calc. Creatinine Clearance 0 mL/min (70-130); Calcium 8.6 mg/dL (7.8-10.44); Carbon Dioxide 26 mmol/L (23-31); Chloride 99 mmol/L (98-107); Estimated GFR-MDRD 51; Globulin 2.8 g/dL (2.4-3.5); Glucose 69 mg/dL (83-110); Potassium 4.1 mmol/L (3.5-5.1); Protein, Total 5.9 g/dL (5.8-8.1); Sodium 135 mmol/L (136-145)
--- NOTE | 2018-04-23 19:30 | RAD ---
LEFT FOOT THREE VIEWS: 04/23/2018 HISTORY: Ulceration on left foot. Left foot pain. The ulceration is now worse. Diabetes mellitus. COMPARISON: 04/05/2018 FINDINGS: Again noted is scattered osteoarthritis about the foot. Posterior and plantar calcaneal enthesophyte s are again seen. No fracture or dislocation is seen. No osseous destruction is appreciated on this exam. Vascular calcifications are again noted. Views of the left foot are stable from prior study. IMPRESSION: Stable views of the left foot with scattered areas of osteoarthritis. No acute osseous abnormality i s seen. In addition, no osseous destruction is seen on this examination to suggest osteomyelitis bas ed on radiographic evaluation. However, if there is concern for infection, MRI may be helpful for fu rther evaluation. POS: WHITNEY
== END 2018-04-23 18:58 | disposition home or self-care (01) ==
LOC: ERS 15:11
DX: S91.302A Unspecified open wound, left foot, initial encounter (principal); L97.529 Non-pressure chronic ulcer of other part of left foot with unspecified severity; F03.90 Unspecified dementia, unspecified severity, without behavioral disturbance, psychotic disturbance, mood disturbance, and anxiety; I25.10 Atherosclerotic heart disease of native coronary artery without angina pectoris; E78.5 Hyperlipidemia, unspecified; F41.9 Anxiety disorder, unspecified; Z87.891 Personal history of nicotine dependence; X58.XXXA Exposure to other specified factors, initial encounter
CPT/HCPCS: 36415; 80053; 83605; 85025; 87040

== ENCOUNTER 2018-04-27 08:09 | Outpatient (CLI) | payer MEDICARE | END 2018-04-27 08:10 | disposition home or self-care (01) | LOC: WCC 08:09 | PROVIDERS: ATTEND Family Medicine | DX: S91.302D Unspecified open wound, left foot, subsequent encounter (principal) | CPT/HCPCS: 97602 ==

== ENCOUNTER 2018-05-03 10:45 | Outpatient (CLI) | payer MEDICARE ==
--- NOTE | 2018-05-03 12:14 | PRG ---
DATE OF SERVICE: 05/03/2018 HISTORY: Mr. Jem Owens is a very pleasant 82-year-old gentleman accompanied by his who pres ents to the Wound Center for evaluation of an ulceration of the dorsum of the left foot. Presently, the patient is receiving dressing changes of Adaptic for the ulceration. The patient was recently ad mitted to [facility] and the patient was seen by Cardiology. Previously, the patient underwent percutaneous revascularization of the left lower extremity by Dr. Neal. Per Dr. Neal, the patient has nonreconstructable peripheral vascular disease. Again, the patient's re ports an increase in the size of the ulceration since her last visit to the Wound Center. PHYSICAL EXAMINATION: VITAL SIGNS: Temperature 98.3, pulse 82, respirations 21, blood pressure 101/56. Accu-Chek 135. EXTREMITIES: The ulceration over the dorsum of the left foot measures approximately 3.5 x 3.5 cm. T he dimensions of the wound at the time of the patient's visit on 04/26/2018 were approximately 3.6 x 2.2 cm. Very little granulation tissue is present within the wound margins. Necrotic tissue is visi ble within the wound margins on exam today. No purulent drainage is associated with the wound. Eryt bert of the skin surrounding the wound is present. Maceration versus keratinization of the skin of t he periwound is noted. No significant edema of the left foot is present on exam today. Hyalomatrix was applied to the wound bed of the ulceration followed by Adaptic, ABD, Kerlix, and an Russell bandage. ASSESSMENT AND PLAN: 1. Left foot cellulitis associated with the ulceration of dorsum of left foot. Hyalomatrix was appl ied to the wound bed of the ulceration today. The patient's has been given a second prescriptio n for Augmentin 875/125, #20, 1 p.o. b.i.d. x10 days. I will see Mr. Owens again in one week. Arra ngements will also be made for the patient to be seen by Dr. Cyril Llamas. 2. History of subdural hematoma. 3. Ischemic cardiomyopathy. 4. Diabetes mellitus type 2. The patient's Accu-Chek in clinic today is 135. 5. History of hypertension. 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 7. Coronary artery disease. 8. Paroxysmal atrial fibrillation. 9. Peripheral vascular disease. 10. Dementia.
== END 2018-05-03 10:46 | disposition home or self-care (01) ==
LOC: WCC 10:45
PROVIDERS: ATTEND Family Medicine
DX: E11.621 Type 2 diabetes mellitus with foot ulcer (principal); L97.529 Non-pressure chronic ulcer of other part of left foot with unspecified severity; L03.116 Cellulitis of left lower limb; I25.5 Ischemic cardiomyopathy; I10 Essential (primary) hypertension; I25.10 Atherosclerotic heart disease of native coronary artery without angina pectoris; I48.0 Paroxysmal atrial fibrillation; I73.9 Peripheral vascular disease, unspecified; F03.90 Unspecified dementia, unspecified severity, without behavioral disturbance, psychotic disturbance, mood disturbance, and anxiety; Z85.51 Personal history of malignant neoplasm of bladder; Z86.73 Personal history of transient ischemic attack (TIA), and cerebral infarction without residual deficits

== ENCOUNTER 2018-05-10 11:31 | Outpatient (CLI) | payer MEDICARE ==
--- NOTE | 2018-05-10 15:29 | PRG ---
DATE OF SERVICE: 05/10/2018 HISTORY: Mr. Jem Owens is a very pleasant 82-year-old gentleman accompanied by his bogdan cotto presents to the Wound Center for evaluation of an ulceration of the dorsum of the left foot. The patient was recently admitted to [facility] and the patient was seen by Cardio logy. Previously, the patient had undergone percutaneous revascularization of the left lower extremi ty by Dr. Neal. Per Dr. Neal, the patient has nonreconstructable peripheral vascular disease. A t the time of the patient's visit to the Wound Center on 05/03/2018, Hyalomatrix was applied to the w ound bed of the ulceration. PHYSICAL EXAMINATION: VITAL SIGNS: Temperature 97.6, pulse 82, respirations 20, blood pressure 99/58, Accu-Chek 109. EXTREMITIES: The ulceration over the dorsum of the left foot has significantly improved in its appea keyur. Granulation tissue is present within the wound margins. No purulent drainage is associated w ith the wound. Erythema of the skin surrounding the wound is present. No maceration of the skin of the periwound is noted. No significant edema of the left foot is present on exam today. The Hyaloma trix applied to the wound bed of the ulceration at the time of the patient's last visit was left inta ct and the ulceration dressed with Adaptic, ABD, Kerlix, and an Russell bandage. ASSESSMENT AND PLAN: 1. Left foot cellulitis associated with the ulceration of dorsum of the left foot. The patient is p resently receiving treatment with Hyalomatrix. The patient is to continue Augmentin 875/125, #20 one p.o. b.i.d. x10 days as previously prescribed. I will see Mr. Owens again in one week. The patien t's states that Mr. Owens also has an appointment with Dr. Llamas in 1 week. 2. History of subdural hematoma. 3. Ischemic cardiomyopathy. 4. Diabetes mellitus type 2. The patient's Accu-Chek in clinic today is 109. 5. History of hypertension. 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 7. Coronary artery disease. 8. Paroxysmal atrial fibrillation. 9. Peripheral vascular disease. 10. Dementia.
[2018-05-10] MEDS ORDERED: Sodium Chloride 0.9% 15 ML NEB ONE (20:57)
== END 2018-05-10 11:32 | disposition home or self-care (01) ==
LOC: WCC 11:31
PROVIDERS: ATTEND Family Medicine
DX: E11.621 Type 2 diabetes mellitus with foot ulcer (principal); L97.529 Non-pressure chronic ulcer of other part of left foot with unspecified severity; L03.116 Cellulitis of left lower limb; I25.10 Atherosclerotic heart disease of native coronary artery without angina pectoris; I73.9 Peripheral vascular disease, unspecified; I48.0 Paroxysmal atrial fibrillation; F03.90 Unspecified dementia, unspecified severity, without behavioral disturbance, psychotic disturbance, mood disturbance, and anxiety; I25.5 Ischemic cardiomyopathy; Z86.79 Personal history of other diseases of the circulatory system; Z85.51 Personal history of malignant neoplasm of bladder
CPT/HCPCS: A4218

== ENCOUNTER 2018-05-17 12:55 | Outpatient (CLI) | payer MEDICARE ==
--- NOTE | 2018-05-17 16:36 | PRG ---
DATE OF SERVICE: 05/17/2018 HISTORY: Mr. Jem Owens is a very pleasant 82-year-old gentleman accompanied by his who p resents to the Wound Center for evaluation of an ulceration of the dorsum of the left foot. The luis a ent was recently admitted to [facility] and the patient was seen by Cardiology . Previously, the patient had undergone percutaneous revascularization of the left lower extremity quinn Neal. Per Dr. Neal, the patient has nonreconstructible peripheral vascular disease. At th e time of the patient's visit to the Wound Center on 05/03/2018, Hyalomatrix was applied to the wound bed of the ulceration. PHYSICAL EXAMINATION: VITAL SIGNS: Temperature 97.7, pulse 75, respirations 20, blood pressure 104/56. EXTREMITIES: The ulceration over the dorsum of the left foot has again improved in its appearance. Granulation tissue is present within the wound margins. No purulent drainage is associated with the wound. Erythema of the skin surrounding the wound is present. No maceration of the skin of the prasanna wound is noted. No significant edema of the left foot is present on exam today. A new ulceration ov er the dorsum of the left foot just distal to the left great toe is present Hyalomatrix was applied to the wound bed of the new ulceration followed by Adaptic, an ABD, Kerlix, and an Russell bandage. Prio r to application of the Hyalomatrix to the wound bed of the new ulceration, the silicone backing was fenestrated with a scalpel. ASSESSMENT AND PLAN: 1. Left foot cellulitis associated with ulcerations of the dorsum of the left foot. Hyalomatrix was applied to the new ulceration, ,which was noted today. The patient is taking p.o. antibiotics as jany Eric. I will see Mr. Owens again in 1 week. 2. History of subdural hematoma. 3. Ischemic cardiomyopathy. 4. Diabetes mellitus type 2. Accu-Cheks will be obtained at the time of the patient's clinic visits . The patient's has been told that for optimal wound healing, the patient's blood glucoses shou ld remain below 150. 5. History of hypertension. 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 7. Coronary artery disease. 8. Paroxysmal atrial fibrillation. 9. Peripheral vascular disease. 10. Dementia.
== END 2018-05-17 12:56 | disposition home or self-care (01) ==
LOC: WCC 12:55
PROVIDERS: ATTEND Family Medicine
DX: E11.621 Type 2 diabetes mellitus with foot ulcer (principal); L97.529 Non-pressure chronic ulcer of other part of left foot with unspecified severity; L03.116 Cellulitis of left lower limb; I25.10 Atherosclerotic heart disease of native coronary artery without angina pectoris; I48.0 Paroxysmal atrial fibrillation; I73.9 Peripheral vascular disease, unspecified; F03.90 Unspecified dementia, unspecified severity, without behavioral disturbance, psychotic disturbance, mood disturbance, and anxiety; I25.5 Ischemic cardiomyopathy; Z86.79 Personal history of other diseases of the circulatory system; Z85.51 Personal history of malignant neoplasm of bladder
CPT/HCPCS: C5275

== ENCOUNTER 2018-05-24 10:51 | Outpatient (CLI) | payer MEDICARE ==
--- NOTE | 2018-05-24 11:54 | PRG ---
DATE OF SERVICE: 05/24/2018 HISTORY: Mr. Jem Owens is a very pleasant 82-year-old gentleman accompanied by his who p resents to the Wound Center for evaluation of an ulceration of the dorsum of the left foot. The luis a ent was recently admitted to [facility] and seen by Cardiology. Previously, t he patient had undergone percutaneous revascularization of the left lower extremity by Dr. Neal. P er Dr. Neal, the patient has nonreconstructable peripheral vascular disease. The patient is presen tly undergoing treatment with Hyalomatrix for the ulceration of the dorsum of the left foot. PHYSICAL EXAMINATION: VITAL SIGNS: Temperature 97.6, pulse 83, respirations 18, blood pressure 89/54. Accu-Chek 95. EXTREMITIES: The ulceration over the dorsum of the left foot measures approximately 4.7 x 4.2 cm. N o purulent drainage is associated with the wound. Erythema over the dorsum of the left foot is prese nt. No maceration of the skin of the periwound is noted. No significant edema of the left foot is p resent on exam today. A new ulceration over the dorsum of the left foot noted at the time of the pat ient's last visit has improved in its appearance. Hyalomatrix was applied to the wound bed of each u lceration after copious irrigation of both wound beds with normal saline. Both wounds were then dres sed with Adaptic, an ABD, Kerlix, and an Russell bandage. Prior to application of the Hyalomatrix to the wound bed of each ulceration the silicone backing was fenestrated with a scalpel. ASSESSMENT AND PLAN: 1. Ulcerations of dorsum of left foot as described above. Hyalomatrix was applied to each ulceratio n today. The patient's has been given a prescription for Augmentin 875/125, #20, 1 p.o. b.i.d. x10 days should the erythema over the dorsum of the left foot began to spread proximally. I will see Mr. Owens again in 1 week. 2. History of subdural hematoma. 3. Ischemic cardiomyopathy. 4. Diabetes mellitus type 2. The patient's Accu-Chek in clinic today is 95. The patient's has been told that for optimal wound healing, the patient's blood glucoses should remain below 150. 5. History of hypertension. 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 7. Coronary artery disease. 8. Paroxysmal atrial fibrillation. 9. Peripheral vascular disease. 10. Dementia.
[2018-05-24] MEDS ORDERED: Sodium Chloride 0.9% 15 ML NEB ONE (14:30)
== END 2018-05-24 10:52 | disposition home or self-care (01) ==
LOC: WCC 10:51
PROVIDERS: ATTEND Family Medicine
DX: E11.621 Type 2 diabetes mellitus with foot ulcer (principal); L97.529 Non-pressure chronic ulcer of other part of left foot with unspecified severity; I25.10 Atherosclerotic heart disease of native coronary artery without angina pectoris; I48.0 Paroxysmal atrial fibrillation; I73.9 Peripheral vascular disease, unspecified; F03.90 Unspecified dementia, unspecified severity, without behavioral disturbance, psychotic disturbance, mood disturbance, and anxiety; Z86.79 Personal history of other diseases of the circulatory system; Z85.51 Personal history of malignant neoplasm of bladder
CPT/HCPCS: A4218

== ENCOUNTER 2018-05-31 10:35 | Outpatient (CLI) | payer MEDICARE ==
[~2018-05-31 10:35] MED LIST: Sodium Chloride 0.9% 15 ML NEB ONE
--- NOTE | 2018-05-31 17:39 | PRG ---
DATE OF SERVICE: 05/31/2018 HISTORY: Mr. Jem Owens is a very pleasant 82-year-old gentleman accompanied by his who p resents to the Wound Center for evaluation of an ulceration of the dorsum of the left foot. The luis a ent was recently admitted to [facility] and seen by Cardiology. Previously, t he patient had undergone percutaneous revascularization of the left lower extremity by Dr. Neal. P er Dr. Neal, the patient has nonreconstructable peripheral vascular disease. The patient is curren tly undergoing treatment with Hyalomatrix for the ulceration of the dorsum of the left foot. PHYSICAL EXAMINATION: VITAL SIGNS: Temperature 97.7, pulse 80, respirations 19, blood pressure 105/60, Accu-Chek 97. EXTREMITIES: The ulceration over the dorsum of the left foot measures approximately 4.2 x 4.7 cm. N o purulent drainage is associated with the wound. Erythema over the dorsum of the left foot is prese nt. No maceration of the skin of the periwound is noted. No significant edema of the left foot is p resent on exam today. Hyalomatrix was applied to the wound bed of the ulceration after copious irrig ation of the wound bed with normal saline. The wound was then dressed with Adaptic, ABD, Kerlix, and an Russell bandage. Prior to application of the Hyalomatrix to the wound bed of the ulceration, the yady icone backing was fenestrated with the scalpel. ASSESSMENT AND PLAN: 1. Ulceration of dorsum of left foot as described above. I will see Mr. Owens again in one week. At this time, consideration will be given to another application of Hyalomatrix. 2. History of subdural hematoma. 3. Ischemic cardiomyopathy. 4. Diabetes mellitus type 2. The patient's Accu-Chek in clinic today is 97. The patient's has been told that for optimal wound healing, the patient's blood glucoses should remain below 150. 5. History of hypertension. 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 7. Coronary artery disease. 8. Paroxysmal atrial fibrillation. 9. Peripheral vascular disease. 10. Dementia.
== END 2018-05-31 10:36 | disposition home or self-care (01) ==
LOC: WCC 10:35
PROVIDERS: ATTEND Family Medicine
DX: E11.621 Type 2 diabetes mellitus with foot ulcer (principal); L97.529 Non-pressure chronic ulcer of other part of left foot with unspecified severity; I25.5 Ischemic cardiomyopathy; I25.10 Atherosclerotic heart disease of native coronary artery without angina pectoris; I48.0 Paroxysmal atrial fibrillation; I73.9 Peripheral vascular disease, unspecified; F03.90 Unspecified dementia, unspecified severity, without behavioral disturbance, psychotic disturbance, mood disturbance, and anxiety; I10 Essential (primary) hypertension; Z85.51 Personal history of malignant neoplasm of bladder; Z86.79 Personal history of other diseases of the circulatory system
CPT/HCPCS: A4218

== ENCOUNTER 2018-06-08 13:19 | Outpatient (CLI) | payer MEDICARE ==
--- NOTE | 2018-06-08 15:02 | PRG ---
DATE OF SERVICE: 06/08/2018 HISTORY: Mr. Jem Owens is a very pleasant 82-year-old gentleman accompanied by his who p resents to the Wound Center for evaluation of an ulceration of the dorsum of the left foot. The luis a ent was recently admitted to [facility] and seen by Cardiology. Previously, t he patient had undergone percutaneous revascularization of the left lower extremity by Dr. Neal. P er Dr. Neal, the patient has nonreconstructible peripheral vascular disease. The patient is presen tly undergoing treatment with Hyalomatrix for the ulceration of the dorsum of the left foot. PHYSICAL EXAMINATION: VITAL SIGNS: Temperature 97.6, pulse 84, respirations 17, blood pressure 109/64. Accu-Chek 86. EXTREMITIES: The ulceration over the dorsum of the left foot measures approximately 4.3 x 4.7 cm. N o purulent drainage is associated with the wound. Erythema over the dorsum of the left foot is prese nt. No maceration of the skin of the periwound is noted. No significant edema of the left foot is p resent on exam today. Hyalomatrix applied to the wound bed of the ulceration at the time of the luis a ent's last visit was left intact along with the silicone backing. The wound was then dressed with Ad aptic, ABD, Kerlix, and an Russell bandage. ASSESSMENT AND PLAN: 1. Ulceration of dorsum of left foot as described above. I will see Mr. Owens again in one week. At this time, consideration will be given to application of another skin substitute. 2. History of subdural hematoma. 3. Ischemic cardiomyopathy. 4. Diabetes mellitus type 2. The patient's Accu-Chek in clinic today is 87. The patient's has been told that for optimal wound healing, the patient's blood glucoses should remain below 150. 5. History of hypertension. 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 7. Coronary artery disease. 8. Paroxysmal atrial fibrillation. 9. Peripheral vascular disease. 10. Dementia.
== END 2018-06-08 13:20 | disposition home or self-care (01) ==
LOC: WCC 13:19
PROVIDERS: ATTEND Family Medicine
DX: E11.621 Type 2 diabetes mellitus with foot ulcer (principal); L97.529 Non-pressure chronic ulcer of other part of left foot with unspecified severity; I25.10 Atherosclerotic heart disease of native coronary artery without angina pectoris; I48.0 Paroxysmal atrial fibrillation; I73.9 Peripheral vascular disease, unspecified; I25.5 Ischemic cardiomyopathy; F03.90 Unspecified dementia, unspecified severity, without behavioral disturbance, psychotic disturbance, mood disturbance, and anxiety; Z86.79 Personal history of other diseases of the circulatory system; Z85.51 Personal history of malignant neoplasm of bladder
CPT/HCPCS: 97602

== ENCOUNTER 2018-06-15 10:50 | Outpatient (CLI) | payer MEDICARE ==
--- NOTE | 2018-06-15 12:28 | PRG ---
DATE OF SERVICE: 06/15/2018 HISTORY: Mr. Jem Owens is a very pleasant 82-year-old gentleman accompanied by his who p resents to the Wound Center for evaluation of an ulceration of the dorsum of the left foot. The luis a ent was recently admitted to [facility] and seen by Cardiology. Previously, t he patient had undergone percutaneous revascularization of the left lower extremity by Dr. Neal. P er Dr. Neal, the patient has nonreconstructible peripheral vascular disease. The patient is presen tly undergoing treatment with Hyalomatrix for the ulceration of the dorsum of the left foot. PHYSICAL EXAMINATION: VITAL SIGNS: Temperature 97.7, pulse 81, respirations 19, blood pressure 117/51. Accu-Chek 109. EXTREMITIES: The ulceration over the dorsum of the left foot measures approximately 4.5 x 4.1 cm. T he dimensions of the wound at the time of the patient's last visit were approximately 4.3 x 4.7 cm. No purulent drainage is associated with the wound. Erythema over the dorsum of the left foot is pres ent. No maceration of the skin of the periwound is noted. No significant edema of the left foot is present on exam today. Hyalomatrix was applied to the wound bed of the ulceration along with the yady icone backing. The silicone backing was fenestrated prior to application of Hyalomatrix to the wound bed. The wound was then dressed with Adaptic, ABD, Kerlix, and an Russell bandage. ASSESSMENT AND PLAN: 1. Ulceration of dorsum of left foot as described above. I will see Mr. Owens again in two weeks. At this time, consideration will be given to another application of skin substitute. In the meantim e, dressing changes of Adaptic followed by an ABD, Kerlix, and an Russell bandage will be continued on a daily basis with the assistance of Home Health. The patient's has been told that the Adaptic ma y be left in place at the time of dressing changes or alternatively replaced. The patient's und erstands and is in agreement with the preceding treatment plan. 2. History of subdural hematoma. 3. Ischemic cardiomyopathy. 4. Diabetes mellitus type 2. The patient's Accu-Chek in clinic today is 109. The patient's myrick s been told that for optimal wound healing, the patient's blood glucoses should remain below 150. 5. History of hypertension. 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 7. Coronary artery disease. 8. Paroxysmal atrial fibrillation. 9. Peripheral vascular disease. 10. Dementia.
== END 2018-06-15 10:51 | disposition home or self-care (01) ==
LOC: WCC 10:50
PROVIDERS: ATTEND Family Medicine
DX: E11.621 Type 2 diabetes mellitus with foot ulcer (principal); L97.529 Non-pressure chronic ulcer of other part of left foot with unspecified severity; I25.5 Ischemic cardiomyopathy; I48.0 Paroxysmal atrial fibrillation; I73.9 Peripheral vascular disease, unspecified; F03.90 Unspecified dementia, unspecified severity, without behavioral disturbance, psychotic disturbance, mood disturbance, and anxiety; Z86.79 Personal history of other diseases of the circulatory system; Z85.51 Personal history of malignant neoplasm of bladder
CPT/HCPCS: 36416

== ENCOUNTER 2018-06-29 14:17 | Outpatient (CLI) | payer MEDICARE ==
--- NOTE | 2018-06-29 18:37 | PRG ---
DATE OF SERVICE: 06/29/2018 SUBJECTIVE: Mr. Jem Owens is a very pleasant 82-year-old gentleman accompanied by his wif lelo who presents to the Wound Center for evaluation of an ulceration of the dorsum of the left foot. T he patient was recently admitted to [facility] and seen by Cardiology. Previo usly, the patient had undergone percutaneous revascularization of the left lower extremity by Dr. Col decker. Per Dr. Neal, the patient has nonreconstructible peripheral vascular disease. At the time of the patient's last visit, Hyalomatrix was applied to the wound bed of the ulceration. OBJECTIVE: VITAL SIGNS: Temperature 98.1, pulse 79, respirations 19, blood pressure 96/51. EXTREMITIES: Hyalomatrix along with the silicone backing is in place over the ulceration of the dors um of the left foot. No purulent drainage is associated with the wound. Less erythema over the dors um of the left foot is present than at the time of the patient's last visit. No maceration of the sk in of the periwound is noted. No significant edema of the left foot is present on exam today. The s ilicone backing of the Hyaloatrix was removed from within the margins of the left foot ulceration. A fter copious irrigation of the ulceration, EpiFix 18 mm was applied to the wound bed over tendon. Th e wound was then dressed with Adaptic, ABD, Kerlix, and an Russell bandage. ASSESSMENT AND PLAN: 1. Ulceration of dorsum of left foot as described above. EpiFix 18 mm was applied to the ulceration today. I will see Mr. Owens again in two weeks. In the meantime, dressing changes of an ABD, foll owed by Kerlix and an Russell bandage are to be performed on a daily basis with the assistance of Home He alth. The patient's has been instructed to leave the Adaptic in place at the time of dressing c hanges. The patient's understands and is in agreement with the preceding treatment plan. 2. History of subdural hematoma. 3. Ischemic cardiomyopathy. 4. Diabetes mellitus type 2. Accu-Cheks will be obtained at the time of the patient's clinic visits . The patient's has been told that for optimal wound healing, the patient's blood glucoses shou ld remain below 150. 5. History of hypertension. 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 7. Coronary artery disease. 8. Paroxysmal atrial fibrillation. 9. Peripheral vascular disease. 10. Dementia.
== END 2018-06-29 14:18 | disposition home or self-care (01) ==
LOC: WCC 14:17
PROVIDERS: ATTEND Family Medicine
DX: E11.621 Type 2 diabetes mellitus with foot ulcer (principal); L97.529 Non-pressure chronic ulcer of other part of left foot with unspecified severity; I25.5 Ischemic cardiomyopathy; I25.10 Atherosclerotic heart disease of native coronary artery without angina pectoris; I48.0 Paroxysmal atrial fibrillation; I73.9 Peripheral vascular disease, unspecified; F03.90 Unspecified dementia, unspecified severity, without behavioral disturbance, psychotic disturbance, mood disturbance, and anxiety; Z85.51 Personal history of malignant neoplasm of bladder; Z86.79 Personal history of other diseases of the circulatory system
CPT/HCPCS: 15275; 97139; C9363; A4218

== ENCOUNTER 2018-07-12 10:53 | Outpatient (CLI) | payer MEDICARE ==
--- NOTE | 2018-07-12 12:04 | PRG ---
DATE OF SERVICE: 07/12/2018 HISTORY: Mr. Jem Owens is a very pleasant 82-year-old gentleman accompanied by his bogdan cotto presents to the Wound Center for evaluation of an ulceration of the dorsum of the left foot. The patient was recently admitted to [facility] and seen by Cardiology. Previousl y, the patient had undergone percutaneous revascularization of the left lower extremity by Dr. Neal . Per Dr. Neal, the patient has nonreconstructable peripheral vascular disease. At the time of patient's last visit, EpiFix was applied to the wound bed of the ulceration. PHYSICAL EXAMINATION: VITAL SIGNS: Temperature 97.4, pulse 72, respirations 18, blood pressure 103/56. Accu-Chek 117. EXTREMITIES: EpiFix 2 x 2 cm was applied to the wound bed. Bone is exposed within the wound margins . Granulation tissue is also present within the wound margins. No purulent drainage is associated w ith the wound. No maceration of the skin of the periwound is noted. [id number] edema of the l eft foot is present on exam today. The wound was dressed with Adaptic, 4x4s, an ABD, Kerlix and an A ce bandage after application of EpiFix 2 x 2 cm to the wound bed. ASSESSMENT AND PLAN: 1. Ulceration of dorsum of left foot as described above. EpiFix 2 x 2 cm was applied to the ulcerat ion today. I will see Mr. Owens again in 2 weeks. In the meantime, dressing changes of an ABD, fol lowed by Kerlix and an Russell bandage are to be performed on a daily basis with the assistance of [facility] aries. 2. History of subdural hematoma. 3. Ischemic cardiomyopathy. 4. Diabetes mellitus type 2. Accu-Cheks will be obtained at the time of the patient's clinic visits . The patient's has been told that for optimal wound healing, the patient's blood glucoses shou ld remain below 150. 5. History of hypertension. 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 7. Coronary artery disease. 8. Paroxysmal atrial fibrillation. 9. Peripheral vascular disease. 10. Dementia.
[2018-07-12] MEDS ORDERED: Sodium Chloride 0.9% 15 ML NEB ONE (18:00)
== END 2018-07-12 10:54 | disposition home or self-care (01) ==
LOC: WCC 10:53
PROVIDERS: ATTEND Family Medicine
DX: E11.621 Type 2 diabetes mellitus with foot ulcer (principal); L97.529 Non-pressure chronic ulcer of other part of left foot with unspecified severity; I25.5 Ischemic cardiomyopathy; I73.9 Peripheral vascular disease, unspecified; I25.10 Atherosclerotic heart disease of native coronary artery without angina pectoris; I48.0 Paroxysmal atrial fibrillation; F03.90 Unspecified dementia, unspecified severity, without behavioral disturbance, psychotic disturbance, mood disturbance, and anxiety; Z86.79 Personal history of other diseases of the circulatory system; Z85.51 Personal history of malignant neoplasm of bladder
CPT/HCPCS: 15275; 36416; A4218

== ENCOUNTER 2018-07-26 15:11 | Outpatient (CLI) | payer MEDICARE ==
[2018-07-26] MEDS ORDERED: Sodium Chloride 0.9% 15 ML NEB ONE (18:00)
--- NOTE | 2018-07-26 18:44 | PRG ---
DATE OF SERVICE: 07/26/2018 HISTORY: Mr. Jem Owens is a very pleasant 82-year-old gentleman accompanied by his , who presents to the wound center for evaluation of an ulceration of the dorsum of the left foot. The patient was recently admitted to [facility] and seen by Cardiology. Previously, the patient had undergone percutaneous revascularization of the left lower extremity by Dr. Ledesma. Per Dr. Ledesma, the patient has non-reconstructable peripheral vascular disease. At the time of the patient's last visit, EpiFix 2 x 2 cm was applied to the wound bed of the ulceration. PHYSICAL EXAMINATION: VITAL SIGNS: Temperature 97.5, pulse 80, respirations 17, and blood pressure 99/53. Accu-Chek 97. EXTREMITIES: The bone is no longer exposed within the wound margins as at the time of the patient's last visit. Granulation tissue is also visible within the wound margins. No purulent drainage is associated with the wound. No maceration of the skin of the periwound is noted. After copious irrigation of the wound bed with normal saline, Hyalomatrix was applied to the wound bed of the ulceration with the silicone layer facing outwards. The wound was then dressed with Adaptic, 4x4s, ABD, and Kerlix. Prior to application of the Hyalomatrix to the wound bed, the silicone layer was fenestrated with a scalpel. ASSESSMENT AND PLAN: 1. Ulceration of the dorsum of the left foot as described above. Hyalomatrix was applied to the ulceration today. I will see Mr. Owens again in 2 weeks. In the meantime, dressing changes of ABD followed by Kerlix are to be performed on a daily basis with the assistance of home health. 2. History of subdural hematoma. 3. Ischemic cardiomyopathy. 4. Diabetes mellitus, type 2. The patient's Accu-Chek in clinic today is 97. The patient's has been told that for optimal wound healing, the patient's blood glucose should remain below 150. 5. History of hypertension. 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 7. Coronary artery disease. 8. Paroxysmal atrial fibrillation. 9. Peripheral vascular disease. 10. Dementia. Job ID: [id number]
== END 2018-07-26 15:12 | disposition home or self-care (01) ==
LOC: WCC 15:11
PROVIDERS: ATTEND Family Medicine
DX: E11.621 Type 2 diabetes mellitus with foot ulcer (principal); L97.529 Non-pressure chronic ulcer of other part of left foot with unspecified severity; I48.0 Paroxysmal atrial fibrillation; I10 Essential (primary) hypertension; I73.9 Peripheral vascular disease, unspecified; F03.90 Unspecified dementia, unspecified severity, without behavioral disturbance, psychotic disturbance, mood disturbance, and anxiety; Z86.79 Personal history of other diseases of the circulatory system; Z85.51 Personal history of malignant neoplasm of bladder
CPT/HCPCS: A4218; Q4117

== ENCOUNTER 2018-07-30 12:27 | Inpatient (IN) | payer MEDICARE ==
[2018-07-30 13:28] LABS: #Eosinphils 0.1 thou/uL (0.0-0.7); #Lymphocytes 0.6 thou/uL (1.20-3.40); #Monocytes 0.7 thou/uL (0.11-0.59); #Neutrophils 8.2 thou/uL (1.40-6.50); %Basophils 0.2 % (0.0-1.0); %Eosinophils 1.1 % (0.0-10.0); %Lymphocytes 6.4 % (21.0-51.0); %Monocytes 7.3 % (0.0-10.0); %Neutrophils 84.9 % (42.0-75.0); Hemoglobin 13.4 g/dL (14.0-18.0); Mean Corpuscular HGB CONC 32.4 g/dL (32.0-36.0); Mean Corpuscular Hemoglobin 30.4 pg (27.0-31.0); Mean Corpuscular Volume 93.8 fL (78.0-98.0); Mean Platelet Volume 8.3 fL (7.4-10.4); Platelet Count 248 thou/uL (130-400); RBC Distribution Width 15.2 % (11.5-14.5); Red Blood Cell (RBC) Count 4.39 mill/uL (4.70-6.10); White Blood Cell (WBC) Count 9.6 thou/uL (4.8-10.8)
--- NOTE | 2018-07-30 13:34 | RAD ---
RADIOGRAPH CHEST 1 VIEW: Date: 07/30/2018 Time: 12:01 p.m. HISTORY: An 82-year-old male with dyspnea and hypotension. COMPARISON: 12/02/2016 FINDINGS: There is a new finding of cardiomegaly. Again noted is the left subclavian multilead AICD. Diffuse bilateral interstitial densities, greater at the lower lung zones than upper lung zones, appear simil ar to 2017. There is a confluent such area at the right lateral base. Chronic blunting of lateral co stophrenic angles bilaterally. No pneumothorax. No interval change in appearance of lungs. IMPRESSION: 1. Chronic interstitial infiltrates, which appear similar to 12/02/2016. 2. Cardiomegaly, new since the prior study. 3. Automatic implantable cardioverter-defibrillator. ADOLFO [] POS: WHITNEY
--- NOTE | 2018-07-30 13:36 | RAD ---
RADIOGRAPH LEFT FOOT THREE VIEWS: HISTORY: An 82-year-old male with a left foot wound. FINDINGS: Diffuse osteopenia. Arthrosis with irregularity of the articular surfaces at the second and third TM T joints. The first TMT joint space is very narrowed. No grossly displaced fracture identified. Mi ld DJD at the first MTP without hallux valgus. The rest of the MTPs appear normal. IMPRESSION: 1. Diffuse osteopenia. 2. Arthrosis of the first, second, and third tarsometatarsal joints. POS: WHITNEY
[2018-07-30 13:51] LABS: ALT (SGPT) 9 U/L (8-55); AST (SGOT) 19 U/L (5-34); Albumin 2.9 g/dL (3.4-4.8); Alkaline Phosphatase 126 U/L (40-150); BUN (Urea Nitrogen) 26 mg/dL (8.4-25.7); Bilirubin, Total 1.2 mg/dL (0.2-1.2); CK (CPK) 35 U/L (30-200); Calc. Creatinine Clearance 0 mL/min (70-130); Calcium 8.9 mg/dL (7.8-10.44); Estimated GFR-MDRD 84; Globulin 3.2 g/dL (2.4-3.5); Glucose 133 mg/dL (83-110); Protein, Total 6.1 g/dL (5.8-8.1)
[2018-07-30 13:55] LABS: Troponin I 0.099 ng/mL (< 0.028)
[2018-07-30 14:02] LABS: Anion Gap 16 mmol/L (10-20); Carbon Dioxide 35 mmol/L (23-31); Chloride 86 mmol/L (98-107); Potassium 3.3 mmol/L (3.5-5.1); Sodium 134 mmol/L (136-145)
[2018-07-30 15:14] LABS: Bilirubin Negative (Negative); Blood, Urine Negative (Negative); Clarity CLEAR (Clear); Glucose, Urine (Dipstick) Negative (Negative); Leukocyte Negative (Negative); Nitrite Negative (Negative); Protein, Urine (Dipstick) Negative (Neg-Trace); Specific Gravity, Urine 1.006 (1.002-1.036); pH, Urine 6.5 (5.0-9.0)
[2018-07-30 17:19] LABS: Troponin I 0.094 ng/mL (< 0.028)
--- NOTE | 2018-07-30 17:30 | PDOC.EVN ---
Event Note - Event Note Event Note: Patient seen and examined in ED. He has had a defibrillator since 2001. It has never discharged. He had the battery replaced at the end of May. Followed by the EP group from [facility]. He was feeling well until 4 am. His said he called her name. She got up and went around the bed to look at him and his eyes were rolled back and his mouth was gaping. This resolved and they went back to sleep. He was fine when he awoke. This happened again at 11 am. The ambulance was called and he was brought to the ED. There, the workup included an interrogation of the AICD revealing the afib, Vtach and discharge. The only other notable finding was a potassium of 3.3. He feels fine now. His exam notes a healing incision above the L SC AICD. 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 He has a history of PVD and has essentially failed options other than amputation of the left foot to resolve the chronic wound. He is not interested in amputation. He also has had increased edema over the past month. Dr. Iraheta has added metolazone to the torsemide. He does take potassium supplementation as well. Recommend obs, tele. Will replete the potassium, check Mg, dig level. Consult EP. Note the patient cannot take ACEI, ARB or BB due to hypotension.
[2018-07-30] MEDS ORDERED: Acetaminophen 325 MG TAB PO PRN (17:43)
[2018-07-30] MEDS ORDERED: Ondansetron PF 4 MG/2 ML Vial IVP PRN (17:43)
[2018-07-30] MEDS ORDERED: Ondansetron ODT 4 MG TAB PO PRN (17:43)
[2018-07-30 18:44] LABS: Digoxin 0.98 ng/mL (0.8-2.0)
[2018-07-30 20:08] LABS: Troponin I 0.081 ng/mL (< 0.028)
[2018-07-30 20:52] VITALS: BMI 18.9
[2018-07-30] MEDS ORDERED: Potassium Chloride 20 MEQ TAB PO SCH (21:00)
[2018-07-30] MEDS: Famotidine 20 MG TAB PO SCH (21:08)
[2018-07-31 05:21] LABS: #Eosinphils 0.1 thou/uL (0.0-0.7); #Lymphocytes 0.7 thou/uL (1.20-3.40); #Monocytes 0.8 thou/uL (0.11-0.59); #Neutrophils 5.1 thou/uL (1.40-6.50); %Basophils 0.4 % (0.0-1.0); %Eosinophils 2.1 % (0.0-10.0); %Lymphocytes 9.9 % (21.0-51.0); %Monocytes 11.4 % (0.0-10.0); %Neutrophils 76.2 % (42.0-75.0); Hemoglobin 11.5 g/dL (14.0-18.0); Mean Corpuscular HGB CONC 31.5 g/dL (32.0-36.0); Mean Corpuscular Hemoglobin 29.9 pg (27.0-31.0); Mean Corpuscular Volume 94.7 fL (78.0-98.0); Mean Platelet Volume 8.4 fL (7.4-10.4); Platelet Count 210 thou/uL (130-400); RBC Distribution Width 15.2 % (11.5-14.5); Red Blood Cell (RBC) Count 3.86 mill/uL (4.70-6.10); White Blood Cell (WBC) Count 6.6 thou/uL (4.8-10.8)
[2018-07-31 05:38] LABS: BUN (Urea Nitrogen) 26 mg/dL (8.4-25.7); Calc. Creatinine Clearance 62 mL/min (70-130); Calcium 8.3 mg/dL (7.8-10.44); Estimated GFR-MDRD 86; Glucose 128 mg/dL (83-110)
[2018-07-31 05:40] LABS: Potassium 2.9 mmol/L (3.5-5.1)
[2018-07-31 05:58] LABS: Chloride 90 mmol/L (98-107); Sodium 136 mmol/L (136-145)
[2018-07-31 06:00] LABS: Anion Gap 14 mmol/L (10-20); Carbon Dioxide 35 mmol/L (23-31)
[2018-07-31] MEDS ORDERED: Magnesium 2 GM/50 ML 2 GM in Premix Bag 1 BAG IVPB SCH (06:15)
[2018-07-31] MEDS: Potassium Chloride 10 MEQ in Premix Bag 1 BAG IVPB SCH ×4 (07:46→11:54)
--- NOTE | 2018-07-31 07:51 | HP ---
PRIMARY CARE PHYSICIAN: Dr. Pham. PRIMARY TYPEWRITER ASSEMBLER: Dr. Iraheta. CHIEF COMPLAINT: Syncope, VFib, status post AICD defibrillation. HISTORY OF PRESENT ILLNESS: Mr. Owens is a pleasant 82-year-old male with a past medical history of atrial fibrillation on chronic anticoagulation, chronic ischemic cardiomyopathy with documented EF of 15% to 20% with AICD in place, chronic systolic heart failure, hypertension, dyslipidemia, diabetes mellitus type 2, coronary artery disease, BPH, hypothyroidism, and dementia, who had presented to [facility] with his , status post him being "out of it this morning" per . Per , the patient was lying in bed with his mouth open, his eyes wide open, and his eyes rolled back in his head, she had sat up with him and was trying to get his attention; however, he would not respond. After several moments, the patient was able to respond. He had no further complaints at that time. He had laid back down on bed and fell back asleep. It was later in the morning around 7:00 a.m. when both the patient and got up and went to the living room. It was shortly later that the patient's heard a gasp from the patient, and when she looked over, he was kind of slumped over in the chair; however, he had denied any symptoms at that time. They had decided to come up to the ER for further evaluation. Upon arrival, the patient was alert and oriented x3, he had no further complaints, he had denied chest pain, shortness of breath, or abdominal pain. His AICD was then interrogated and it was found that the patient went into VFib this morning and was then delivered a shock 3 times today at 2:56, 5:20, and 11:55 this morning. The patient in no acute distress at this time. His and other family members are at bedside. He states that his primary communications professor is Dr. Iraheta. His primary EP is Dr. Calderón. He also presents with a non-healing foot ulcer on the left foot, but he has undergone wound care over the last year and a half. He states some improvement; however, denies any pain at this time. There is a dressing in place that is clean and dry. The patient's family report he is at baseline. Upon further lab workup, it was found that the patient's potassium was low at 3.3, he reports taking potassium daily along with Eliquis, digoxin, and torsemide among others. He had reported an allergy to YARI inhibitors, ARBs, and beta-blockers as his blood pressure tends to fall. It was determined that the patient would be placed on observation overnight for further monitoring, after further discussion with the patient and family, it was found that the patient and family wish DNR at this time. PAST MEDICAL HISTORY: 1. Dementia. 2. Atrial fibrillation, on chronic anticoagulation. 3. Chronic ischemic cardiomyopathy with a history of an EF of 15% to 20%, left AICD in place. 4. Chronic systolic heart failure. 5. Hypertension. 6. Diabetes mellitus type 2. 7. Dyslipidemia. 8. Coronary artery disease. 9. Benign prostatic hypertrophy. 10. Hypothyroidism. 11. History of bladder cancer, requiring resection. 12. History of subdural hematoma in the past. 13. History of peripheral vascular disease, status post right [id number] amputation. 14. Non-healing ulcer of left foot. PAST PSYCHIATRIC HISTORY: Denies any history. PAST SURGICAL HISTORY: 1. BKA on the right. 2. Bladder tumor resection. 3. Left knee surgery. 4. Cataract surgery. 5. AICD placement. 6. History of T.O.M. Tracheostomy with PEG tube placement in the past. SOCIAL HISTORY: He is and lives with his . His and family are at bedside. He denies any drug use, he quit smoking more than 10 years ago; however, he does report a half glass of whisky at night. FAMILY HISTORY: Positive for diabetes and hypertension among several family members; however, denies any heart disease at this time. ALLERGIES: YARI INHIBITORS, ARBS, BETA-BLOCKERS THESE CAUSE HYPOTENSION. CURRENT MEDICATIONS: 1. Eliquis 2.5 mg twice daily. 2. Digoxin 125 mcg p.o. daily. 3. Atorvastatin 20 mg p.o. daily. 4. Torsemide 20 mg p.o. twice daily. 5. Potassium chloride 20 mEq once daily. 6. Donepezil 10 mg oral once daily. 7. Levothyroxine 50 mcg p.o. daily. 8. Levocetirizine 5 mg oral once daily. 9. Azelastine 137 mcg intranasally as needed. 10. Mucinex 1200 mg p.o. as needed. REVIEW OF SYSTEMS: CONSTITUTIONAL: Denies fever or chills. Denies any weight loss or weight gain. Denies any symptoms at this time; however, did report the patient became unresponsive this morning with his eyes rolled back in his head. HEAD: No trauma, denies headache, blurred vision, or ringing in the ears. CARDIOVASCULAR: Denies chest pain or palpitations. Does report AICD in place and history of heart failure. Does report primary communications professor is Dr. Iraheta. RESPIRATORY: Does report dry cough; however, this is chronic with no sputum production. Denies shortness of breath. GASTROINTESTINAL: No abdominal pain. No nausea or vomiting. No diarrhea. NEUROLOGIC: Denies dizziness, headache, or lightheadedness. GENITOURINARY: Denies any frequency, urgency, or dysuria. MUSCULOSKELETAL: Denies any weakness, does report BKA on the right, non-healing wound on the left foot. PHYSICAL EXAMINATION: VITAL SIGNS: Blood pressure 112/61, pulse 91, respirations 18, and O2 saturations 97% on room air. GENERAL: No acute distress. Awake, alert, and oriented x3, sitting up in bed with and other family members at bedside. HEENT: Atraumatic and normocephalic. Moist mucous membranes noted. No oropharyngeal erythema. Pupils are round and reactive to light and accommodation. Extraocular muscles intact. NECK: Soft and supple. No JVD or bruit. CARDIAC: Positive S1 and S2. Paced rhythm on the monitor without murmur. RESPIRATORY: Clear to auscultation bilaterally. No wheezes or rhonchi noted. ABDOMEN: Soft and nontender. Bowel sounds present. Nondistended. MUSCULOSKELETAL: Positive BKA on the right, a 3-cm ulcer with necrotic base over the dorsum of left foot. Sensation intact. Strength 5+ bilaterally. Pulses are difficult to appropriate. Range of motion intact. NEUROLOGIC: Speech is normal. Awake and alert. Cranial nerves II through XII intact. No focal deficits noted. SKIN: Warm, dry, and intact. Diffuse upper extremity bruising noted, non-healing ulcer on the left foot with clean and dry dressing intact. PSYCHIATRIC: Normal mood and affect. No suicidal or homicidal ideation. LABORATORY DATA: WBC 9.6, RBC 4.39, hemoglobin 13.4, and MCV 93.8. Sodium 134, potassium 3.3, creatinine 0.86, and BUN 26. Estimated GFR is 84. Glucose is 133. AST 19, ALT 9, and alkaline phosphatase 126. Creatine kinase 35, CK-MB 2.0. Troponin 0.099, then 0.094. Urinalysis unremarkable. DIAGNOSTIC IMAGING: Chest x-ray, chronic interstitial infiltrates, which appear similar to 12/02/2016, cardiomegaly which was new since the prior study, AICD in place. Left foot x-ray showed diffuse osteopenia, arthrosis of the first, second, and third tarsometatarsal joints. ASSESSMENT AND PLAN: 1. Elevated troponin, likely secondary to the patient being shocked by automated implantable cardioverter-defibrillator 3 times today, we will likely monitor overnight. We will place consult for Cardiology, his primary communications professor is Dr. Iraheta; however, Dr. Diaz will be education reporter tomorrow. We will also place a consult for Electrophysiology, Dr. Harrington, for further evaluation. 2. Ventricular tachycardia and ventricular fibrillation, the patient is status post being defibrillated by automated implantable cardioverter-defibrillator, currently in paced rhythm at this time. We will monitor overnight on telemetry. We will continue on the patient's home medications at this time. 3. Possible syncopal episode, likely secondary to above. However, potassium is 3.3, we will place him on home dose of 20 mEq potassium, we will give extra 20 mEq tonight. Check a magnesium level and replace as needed. Check digoxin level as the patient is on digoxin 125 mcg oral daily. Further adjustments to the patient's medication as needed. 4. Chronic atrial fibrillation with automated implantable cardioverter-defibrillator in place, continue current medical management with home medications, await further recommendations from Cardiology. No further workup needed at this time. 5. History of chronic ischemic cardiomyopathy with an ejection fraction of 15% to 20%. As above, we will place on home medications and consult Cardiology. 6. Hypertension, currently stable. 7. Diabetes mellitus type 2, continue with Accu-Cheks and further management pending the patient's progress. 8. History of peripheral artery disease with [id number] amputation, place on fall risk. 9. History of non-healing ulcer on left foot, consult Wound Care for further evaluation and management. The patient likely to continue with Wound Care as an outpatient. 10. Hypokalemia, potassium was found to be 3.3. We will place on home 20 mEq daily along with adding a second 20 mEq x1 tonight. We will check magnesium level and replace as needed. 11. Code status. After further discussion with the patient and family, it was determined at that time that the patient be placed Do Not Resuscitate. 12. Pulmonary embolism and deep venous thrombosis prophylaxis, we will continue the patient's home Eliquis 2.5 mg twice daily. 13. Gastrointestinal prophylaxis with Pepcid twice daily, start Zofran as needed for nausea. DISPOSITION: Mr. Owens will be admitted for observation of his current symptoms, Cardiology will be consulted. Further medical management and disposition will be made status post the patient's progress and further recommendations from Cardiology Services and EP services. He will likely be discharged home with close followup as an outpatient in the next 1-2 midnights. Job ID: [id number]
[2018-07-31] MEDS: Famotidine 20 MG TAB PO SCH ×2 (09:32→21:37)
[2018-07-31] MEDS ORDERED: Potassium Chloride 20 MEQ TAB PO SCH (11:30)
--- NOTE | 2018-07-31 14:48 | PDOC.PN ---
- Subjective Encounter Start Date: 07/31/18 Encounter Start Time: 10:00 Subjective: f/u on admission for AICD going off x3 /syncope x2 yesterday -: denies complaints today, sitting on the edge of the bed -: denies CP, dyspnea - Objective Resuscitation Status - Order Detail: 07/30/18 17:43 Resuscitation Status Routine Co-Sign Provider: Resuscitation Status: DNAR: NO Resuscitation Discussed with: Patient and family including and daughter. Vital Signs & Weight: Vital Signs (12 hours) Temp Pulse Resp BP BP BP Pulse Ox 07/31/18 12:00 96.5 F L 80 16 108/59 L 108/59 L 07/31/18 08:00 97.8 F 91 16 91/54 L 92/54 L 96 07/31/18 04:35 97.6 F 87 20 118/55 L 97 07/31/18 03:38 97.6 F 87 20 119/55 L 97 Weight Admit Weight 66.996 kg Weight 66.996 kg I&O: 07/30/18 07/31/18 08/01/18 06:59 06:59 06:59 Intake Total 150 Balance 150 Result Diagrams: 07/31/18 04:59 08/01/18 04:50 Phys Exam - Physical Examination HEENT: PERRLA, moist MMs Neck: no nodes, no JVD Respiratory: clear to auscultation bilateral Cardiovascular: RRR, no significant murmur Gastrointestinal: soft, non-tender Musculoskeletal: no edema right BKA noted, Neurological: non-focal Lymphatic: no nodes Psychiatric: normal affect, A&O x 3 Skin: no rash Deviation from normal: ulceration noted to left plantar big toe Dx/Plan (1) Syncope Code(s): R55 - SYNCOPE AND COLLAPSE Status: Acute (2) Diabetic foot ulcer Code(s): E11.621 - TYPE 2 DIABETES MELLITUS WITH FOOT ULCER; L97.509 - NON- PRESSURE CHRONIC ULCER OTH PRT UNSP FOOT W UNSP SEVERITY Status: Chronic Qualifiers: Laterality: left (3) AICD (automatic cardioverter/defibrillator) present Code(s): Z95.810 - PRESENCE OF AUTOMATIC (IMPLANTABLE) CARDIAC DEFIBRILLATOR Status: Chronic (4) Atrial fibrillation Code(s): I48.91 - UNSPECIFIED ATRIAL FIBRILLATION Status: Chronic (5) Ischemic cardiomyopathy Code(s): I25.5 - ISCHEMIC CARDIOMYOPATHY Status: Chronic (6) PAD (peripheral artery disease) Code(s): I73.9 - PERIPHERAL VASCULAR DISEASE, UNSPECIFIED Status: Chronic Comment: s/p R BKA - Plan -: Cardiology and EP consultation pending -: K+ down to 2.9, added dose of Kdur today -: Will continue to monitor VS and labs, await consult recommendations * .
--- NOTE | 2018-07-31 17:15 | CON ---
DATE OF CONSULTATION: 07/31/2018 TYPE OF CONSULTATION: Cardiology consultation. REASON FOR CONSULTATION: Ventricular tachycardia and ventricular fibrillation. HISTORY OF PRESENT ILLNESS: Mr. Owens is a delightful 82-year-old gentleman with history of severe longstanding heart disease, admitted with recurrent ventricular arrhythmias. Mr. Owens was brought to the hospital after he had multiple defibrillator discharges on Tuesday. He was found to have ventricular tachycardia and also ventricular fibrillation with successful defibrillation. The patient was also found to be hypokalemic and hypomagnesemic. He is feeling better now and has received potassium and magnesium. The patient was recently seen in the office with volume overload, refractory to diuretics. He was given metolazone 5 mg a day for two days and then one a week if needed. The furosemide was also increased as he was in heart failure at that time. The patient responded to metolazone, but apparently did drop his potassium. PAST MEDICAL HISTORY: 1. Very long history of depressed left ventricular function. 2. Underlying coronary artery disease. 3. Previous defibrillator implantation. MEDICATIONS: As an outpatient; 1. Camille. 2. Plavix 75 mg daily. 3. Digoxin 0.125 mg daily. 4. Eliquis 2.5 mg twice a day for atrial fibrillation, prophylaxis for stroke prevention. 5. Lipitor. 6. Metolazone once a week if needed. 7. Potassium 10 mEq a day and he did take extra potassium when he takes the Metolazone. 8. Torsemide 20 mg two tablets twice a day. 9. Has had to be taken off YARI inhibitors and beta-blockers due to hypotension. 10. We are considering starting a low dose of Entresto, but I do not think he has actually started that yet. ALLERGIES OR INTOLERANCE: To YARI inhibitors, ARB, and beta blockers, all hypotension. SOCIAL HISTORY: He has an extremely helpful , who has been extremely helpful in his care, very supportive. Does not use alcohol or smoke. REVIEW OF SYSTEMS: CONSTITUTIONAL: Positive for weakness and fatigue. VISION: No changes. HEARING: No changes. PULMONARY: No cough or wheezing. CARDIAC: As outlined above. No current chest pain or pressure. GASTROINTESTINAL: No nausea, vomiting, or diarrhea. SKIN: No rashes. NEUROLOGIC: No unilateral weakness or numbness. PSYCHIATRIC: No unusual depression or anxiety. PHYSICAL EXAMINATION: GENERAL: This is a chronically ill, but very pleasant elderly gentleman. VITAL SIGNS: Blood pressure earlier was 92/54, now it is 108/59, pulse 80, it is regular. LUNGS: Clear. CARDIAC: Normal S1, normal S2. There is no murmur, rub, or gallop. ABDOMEN: Soft and nontender. EXTREMITIES: No clubbing or cyanosis. He currently does not have any edema. He has previous below-knee amputation. LABORATORY DATA: Pertinent laboratory, his potassium was 2.9 earlier this morning, it was 3.3 on admission. Magnesium was also low at 1.7, on the low end of normal, normal is 1.6 to 2.6. Echocardiogram is consistently showing ejection fraction to be severely low, usually in the range of 15% to 20%. The patient has a previous defibrillator functioning normally. ASSESSMENT: 1. Congestive heart failure, currently stable, actually improved with diuresis. 2. Ventricular arrhythmias may have been associated with low potassium. 3. History of some lung disease. 4. Chronic atrial fibrillation. PLAN: 1. He is on low dose Eliquis. He had GI bleeding, on Coumadin in the past. 2. Replete potassium. 3. Increase magnesium. 4. Keep him overnight to make sure he is not having more ventricular arrhythmias prior to discharge. If he has recurrent ventricular arrhythmias with correction of the potassium, may need to consider amiodarone but agree withholding holding off on that for now. 5. We will need to review notes. I think we may have actually tried spironolactone in the past, that may have worsened his kidney function, need to check on that. Yes, actually we did try that in the remote past. If his blood pressure stays consistently in this range, could consider very low dose of Entresto, that does have a low-dose ARB, that may be beneficial. We will watch him closely. We will follow with you. Hopefully, home tomorrow if okay. Job ID: [id number]
[2018-07-31] MEDS ORDERED: Azelastine 137 MCG/Spray 30 ML NS PRN (22:03)
[2018-08-01] MEDS: Apixaban 2.5 MG TAB PO SCH ×2 (00:13→08:53)
[2018-08-01 05:33] LABS: Anion Gap 12 mmol/L (10-20); BUN (Urea Nitrogen) 41 mg/dL (8.4-25.7); Calc. Creatinine Clearance 51 mL/min (70-130); Calcium 8.5 mg/dL (7.8-10.44); Carbon Dioxide 37 mmol/L (23-31); Chloride 92 mmol/L (98-107); Estimated GFR-MDRD 67; Glucose 153 mg/dL (83-110); Potassium 3.6 mmol/L (3.5-5.1); Sodium 137 mmol/L (136-145)
[2018-08-01] MEDS ORDERED: Levothyroxine Sodium 50 MCG TAB PO SCH (06:00)
[2018-08-01] MEDS ORDERED: Potassium Chloride 20 MEQ TAB PO SCH ×3 (08:30→09:00)
[2018-08-01] MEDS: Famotidine 20 MG TAB PO SCH (08:54)
[2018-08-01] MEDS ORDERED: Digoxin 0.125 MG TAB PO SCH (09:00)
[2018-08-01] MEDS ORDERED: Cyanocobalamin (Vitamin B-12) 1,000 MCG TAB PO SCH (09:00)
[2018-08-01] MEDS ORDERED: Donepezil HCl 10 MG TAB PO SCH (09:00)
[2018-08-01] MEDS ORDERED: Magnesium Oxide 400 MG TAB PO SCH (09:00)
[2018-08-01] MEDS ORDERED: Finasteride 5 MG TAB PO SCH (09:00)
[2018-08-01] MEDS ORDERED: Torsemide 20 MG TAB PO SCH (09:00)
[2018-08-01] MEDS ORDERED: pyridOXINE 50 MG (B6) TAB PO SCH (09:00)
--- NOTE | 2018-08-01 09:01 | CON ---
DATE OF CONSULTATION: TYPE OF CONSULTATION: Electrophysiology Consultation. REFERRING PHYSICIAN: Hospitalist Group. REASON FOR CONSULTATION: ICD discharge and ventricular tachycardia. HISTORY OF PRESENT ILLNESS: Mr. Owens is an elderly chronically-ill 82-year- old gentleman, known to our practise for history of permanent atrial fibrillation, ventricular arrhythmias, as well as inclusion of a TAX AGENT ICD for which he recently underwent RV lead revision in May with Dr. Calderón. He is cared for largely by his . They were at home and he was not acting his usual self and was minimally responsive. He was also rather somnolent yesterday morning prior to coming to the hospital. At one point, she heard him gasped and saw him slumped over in his chair at which point, she decided to bring him to the emergency room for further evaluation. Upon arrival, the patient was alert and oriented and without complaint. His AICD was interrogated andfound that he had gone into ventricular tachycardia and received 3 shocks. His blood work also showed hypokalemia and hypomagnesemia. He was admitted for further evaluation and monitoring. His also reports that he saw Dr. Iraheta in the recent past and the patient was found to have fluid overload and his torsemide was doubled and he was also given a few doses of metolazone. His fluid levels became much better controlled and his edema subsided. He was supposed to have a followup appointment with him later today. She reports an intolerance of him to YARI inhibitors, ARBS, and beta-blockers secondary to hypotension. Currently, Mr. Owens is resting comfortably, sitting on the edge of the bed. He is alert and oriented, but does have some baseline cognitive deficit. He is in no apparent distress. PAST MEDICAL HISTORY: 1. Chronic atrial fibrillation. 2. 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 3. Cardiomyopathy, ischemic. 4. Congestive heart failure, acute on chronic. 5. Anticoagulation with Eliquis. 6. Diabetes mellitus. 7. Peripheral vascular disease. 8. Ventricular arrhythmias. 9. Dementia. 10. Hypertension. 11. Benign prostatic hypertrophy. 12. Hypothyroidism. 13. History of subdural hematoma. 14. History of bladder cancer. 15. History of peripheral vascular disease, status post right BKA. 16. Non-healing ulcer of the left foot. 17. TAX AGENT-D in situ with RV lead revision in May 2018. REVIEW OF SYSTEMS: A 12-point review of systems was conducted. The patient currently denies heart rasing, palpitations, chest pain, pressure, syncope, near syncope, stroke, or stroke-like symptoms. Positive for recent ICD discharges, otherwise a 12-point review of system was negative as mentioned above in HPI. SOCIAL HISTORY: , resides with his , who is his primary informatics educator. Negative for alcohol, tobacco, or illicit drug use. FAMILY HISTORY: Positive for diabetes and hypertension. Negative for sudden cardiac or early coronary artery disease. ALLERGIES: NO KNOWN DRUG ALLERGIES. INTOLERANCE TO YARI INHIBITORS, ARBS, AND BETA-BLOCKERS DUE TO HYPOTENSION. HOME MEDICATIONS: 1. Eliquis 2.5 mg b.i.d. 2. Digoxin 125 mcg p.o. daily. 3. Atorvastatin 20 mg p.o. daily. 4. Torsemide 20 mg p.o. daily. 5. Potassium chloride 20 mEq p.o. daily. 6. Donepezil 10 mg oral daily. 7. Levothyroxine 50 mcg p.o. daily. 8. Levocetirizine 5 mg p.o. daily. 9. Azelastine 137 mcg intranasally as needed. 10. Mucinex 1200 mg p.o. as needed. PHYSICAL EXAMINATION: VITAL SIGNS: Temperature 97.8, heart rate 91, blood pressure 108/59, respirations 18, and oxygen is 96% on room air. GENERAL: This is a chronically ill-appearing and cachectic elderly gentleman. He is in no apparent distress. He is alert and oriented times person, place, and mostly to situation. His is at bedside. HEENT: Normocephalic and atraumatic. Oral mucosa is moist and pink with adequate dentition. Sclera anicteric. Pupils are equal, reactive, round, and accommodating to the light. NECK: Neck is supple without jugular venous distention. CARDIAC: Meagher S1 and S2. Device is seen at the left infraclavicular fossa without swelling, or drainage. The site has healed nicely. PMI is non- displaced. RESPIRATORY: Clear to auscultation bilaterally without wheezes, crackles, or rhonchi appreciated. GI: Abdomen is soft and non-tender without palpable masses. Positive bowel sounds heard throughout. negative. NEUROLOGIC: Grossly intact cranial nerves 2 through 12 except underlying baseline dementia largely revealed as some cognitive deficits. No focal deficits are appreciated. MUSCULOSKELETAL: BKA to the right lower extremity. Chronic ulcerative disease on the dorsum of the left foot. LABORATORY DATA: Hematology was reviewed; hemoglobin 11.5, hematocrit 36.5, platelet 210, and WBC 6.6. Chemistry; sodium 136, potassium 2.9, creatinine 0.85 , glucose 128, and magnesium 1.7. DIAGNOSTIC DATA: 1. Chest x-ray, impression;. a. Chronic interstitial infiltrates similar to prior exam in 2017. b. Multi-lead AICD in place. 2. Device check: The patient has a [employer] MRI compatible TAX AGENT-D. Date of implant was 06/26/2018. This is currently set VVIR with a lower rate limit of 70 and upper sensor rate of 130 beats per minute. Lead impedence are stable. Capture thresholds are stable. Atrial lead is off with his chronic atrial fibrillation. Ventricular pacing is 85%, suboptimal with cardiac resynchronization therapy device. There are 3 episodes of ventricular tachycardia that accelerated to ventricular fibrillation. There were 3 shocks delivered for ventricular arrhythmias, all were successfully terminated into normal sinus rhythm, otherwise normal device check. 3. Telemetry and EKG reflect ventricular pacing, underlying atrial fibrillation and evidence of cardiac resynchronization therapy. IMPRESSION: 1. Recurrent ventricular tachycardia with syncope in the setting of low potassium and low magnesium. 2. Chronic atrial fibrillation. 3. High grade atrioventricular block. 4. Qvrbw-zp-patrwlw congestive heart failure with recent fluid overload, needing increased diuretics. 5. Adequate function of the biventricular implantable cardioverter-defibrillator with recent lead revision and generator change. 6. Peripheral vascular disease with prior right below-knee amputation with left lower extremity foot ulcer. 7. Ischemic cardiomyopathy with severely reduced left ventricular ejection fraction with a prior myocardial infarction before 1999, no chest pain currently. 8. History of pulmonary disease with chronic obstructive pulmonary disease and recurrent pneumonia on chronic antibiotic therapy that is rotating every 3 months. PLAN: 1. Replete electrolytes to potassium of 4 and magnesium of 2. 2. If further ventricular tachycardia episodes occur, I would consider amiodarone for arrhythmia suppression. At this point with his underlying lung disease, we would abstain from initiating amiodarone at this time as he has been well controlled in the past. He is a poor ablation candidate. Thank you for allowing us to participate in the care of this patient. Job ID: [id number] MTDD
--- NOTE | 2018-08-01 10:21 | PRG ---
DATE OF SERVICE: 08/01/2018 SUBJECTIVE: Mr. Owens feels okay today. No chest pain or pressure. No shortness of breath. His blood pressure is low as usual 100/57, pulse 70, it is regular. OBJECTIVE: LUNGS: Clear. CARDIAC: Normal S1, normal S2. ABDOMEN: Soft, nontender. ASSESSMENT: 1. Congestive heart failure, systolic, chronic, advanced. 2. Ventricular arrhythmias, no recurrence. 3. Hypokalemia, improved but still 3.6. PLAN: 1. Go home on potassium 20 mEq twice a day. 2. He is on Demadex 40 mg twice a day. 3. Magnesium oxide 400 mg a day. 4. At this time, we have not started amiodarone. Hopefully, by correcting the potassium, we will avoid ventricular arrhythmias, wished to avoid amiodarone if possible with history of lung disease. Job ID: [id number]
--- NOTE | 2018-08-01 10:45 | PDOC.CTH ---
Cardiology Progress Note - Subjective EP progress note 08/01/18: Patient seen and evaluated. No new EP/cardiac concerns overnight. Preparing for DC today as electrolytes have stabilized. - Objective Vital Signs Temp Pulse Resp BP Pulse Ox 08/01/18 08:52 80 08/01/18 07:42 97.8 F 71 16 100/57 L 95 08/01/18 03:55 96.8 F L 82 17 114/59 L 99 Admit Weight 147 lb 11.2 oz Weight 147 lb 11.2 oz 07/31/18 08/01/18 08/02/18 06:59 06:59 06:59 Intake Total 420 Balance 420 - Physical Examination General/Neuro: alert & oriented x3, NAD Neck: carotid US brisk, no JVD present Lungs: CTA, unlabored respirations Heart: PMI normal Abdomen: NT/ND, soft - Telemetry Telemetry Rhythm: AF, ADMINISTRATOR OF HOME HEALTH paced - Labs Result Diagrams: 07/31/18 04:59 08/01/18 04:50 Troponin/CKMB CK-MB (CK-2) 2.0 ng/mL (0-6.6) 07/30/18 13:18 Troponin I 0.081 ng/mL (< 0.028) H 07/30/18 19:35 - Assessment/Plan 1. Syncope dut to VT in the setting of low K, Mg. 2. Adequately functioning ADMINISTRATOR OF HOME HEALTH ICD with recent shocks for VT/VF 3. Acute/chronic congestive heart failure with Ischemic cardiomyopathy - improving with increased dieresis. 4. Chr Afib 5. Chr high grade AV block 6. PVD, ho BKA K and Mag have stabilized. If further VT/VF is seen without electrolyte imbalance we will consider Amiodarone for arrhythmia suppression. Follow up appointment on August 30 at 10:30 at [facility].
[2018-08-01 12:09] VITALS: BP 91/53; TEMP 97.2
[2018-08-01] MEDS ORDERED: Atorvastatin Calcium 20 MG TAB PO SCH (21:00)
[2018-08-01] MEDS ORDERED: INSULIN DETEMIR SC SCH (21:00)
[2018-08-01] MEDS ORDERED: Insulin Glargine 14 UNITS in Pre-Filled Syringe 1 EACH SC SCH (21:00)
--- NOTE | 2018-08-04 05:11 | DIS ---
DATE OF ADMISSION: 08/01/2018 DATE OF DISCHARGE: 08/01/2018 PRIMARY CARE PHYSICIAN: Dr. Willian Pham. CONSULTANTS: 1. Dr. Iraheta, Cardiology. 2. Dr. Harrington, EP. CODE STATUS: DNAR. PROCEDURES: 1. Chest x-ray showed;. a. Chronic interstitial infiltrates, which appears similar to 12/02/2016. b. Cardiomegaly, new since the prior study. c. Automatic implantable cardioverter and defibrillator. 2. The patient also had a foot x-ray of the left foot. Impression;. a. Diffuse osteopenia. b. Arthrosis of the first, second, and third tarsometatarsal joints. DISCHARGE DIAGNOSES: 1. Recurrent ventricular tachycardia with syncope, likely due to low potassium and low magnesium. 2. Chronic atrial fibrillation. 3. High-grade atrioventricular block. 4. Acute on chronic congestive heart failure with recent fluid overload, had recent increased diuretics. 5. Peripheral vascular disease with prior right below knee amputation, left lower extremity foot ulcer. 6. Ischemic cardiomyopathy with reduced left ventricular ejection fraction between 15% and 20%. 7. History of pulmonary disease with chronic obstructive pulmonary disease and recurrent pneumonia and he is on chronic antibiotic therapy that is rotating every 3 months. 8. Hypomagnesemia. 9. Hypokalemia. REVIEW OF SYSTEMS: The patient was examined this morning, has no complaints. Denies any AICD firing since he has been admitted. CONSTITUTIONAL: Denies any fevers or chills. HEAD: Denies any headache. CARDIOVASCULAR: Denies any chest pain or palpitations. Does have AICD in place. RESPIRATORY: Denies any productive cough. Reports a dry cough, which is chronic. Denies any shortness of breath. GASTROINTESTINAL: Denies any abdominal pain, nausea, vomiting, or diarrhea. NEUROLOGIC: Denies dizziness, headache, or lightheadedness. : Denies any increased frequency. Denies any dysuria or urgency. MUSCULOSKELETAL: Denies any weakness. Does have a BKA on the right and nonhealing wound on the left foot. PHYSICAL EXAMINATION: VITAL SIGNS: Temperature 96.8, pulse of 82, respirations are 17, blood pressure 114/59, the patient is 99% on room air pulse ox. GENERAL: In no acute distress. He is alert and oriented x3. He is lying in bed, answering questions appropriately. HEENT: Head is atraumatic and normocephalic. Moist mucous membranes. Pupils are round, reactive to light and accommodation. Extraocular muscles are intact. NECK: Soft and supple. No JVD or bruits. CARDIAC: Positive S1 and S2. Has a paced rhythm on the monitor. RESPIRATORY: Clear to auscultation bilaterally. No wheezes or rhonchi. ABDOMEN: Soft and nontender. Bowel sounds are present. MUSCULOSKELETAL: Positive BKA on the right, 3 cm ulcer on the dorsum of the left foot. Sensation is intact. Strength 5 bilaterally. NEUROLOGIC: Speech is normal. Awake and alert. No focal deficits are noted. SKIN: Warm and dry. Diffuse upper extremity bruising noted. Nonhealing ulcer on the left foot. Dressing has recently been changed. PSYCHIATRIC: Normal mood and affect. HOSPITAL COURSE: Mr. Owens is a pleasant 82-year-old man with a past medical history of atrial fibrillation on chronic anticoagulation, chronic ischemic cardiomyopathy with a documented ejection fraction of 15% to 20% with an AICD in place. He also has chronic systolic heart failure, hypertension, dyslipidemia, diabetes, coronary artery disease, benign prostatic hypertrophy, hypothyroidism, and dementia. He had presented to the emergency room on 05/30/2018 due to several episodes of being "out of it." Per , she found him twice with his eyes wide open, eyes rolled back into his head, mouth open, took several minutes for him to respond to her. On arrival in the ER, he was alert and oriented x3. AICD was interrogated and the patient went into VFib and the AICD had delivered shocks 3 times. Due to past medical history and the discharge of the AICD, the patient was admitted to the observation unit for further management. He was seen by Dr. Iraheta and Dr. Harrington, who recommended correct the hypokalemia and hypomagnesemia, those supplements were given. Lab values improved today. The patient is in no distress. Dr. Iraheta saw the patient with me this morning and we will discharge the patient home. We will add an increase to daily potassium and add some magnesium for home. MEDICATIONS: The patient will be continued on his home meds, which include; 1. Eliquis 2.5 mg p.o. b.i.d. 2. Lipitor 20 mg p.o. at bedtime. 3. Azelastine 0.15% nasal spray, 1 spray each nares b.i.d. as needed. 4. Vitamin B12, 500 mcg p.o. daily. 5. Digoxin 0.125 mg p.o. daily. 6. Aricept 10 mg p.o. daily. 7. Mucinex 600 mg p.o. b.i.d. 8. Levemir 14 units subcu at bedtime. 9. Levocetirizine 5 mg p.o. daily. 10. Levothyroxine 50 mcg p.o. daily. 11. Vitamin B6, 100 mg p.o. daily. 12. Demadex 40 mg p.o. b.i.d. 13. Finasteride 5 mg p.o. daily. 14. Magnesium oxide 40 mg p.o. daily will be added. 15. Increase in potassium chloride 20 mEq from daily to b.i.d. ALLERGIES: THE PATIENT IS ALLERGIC TO YARI INHIBITORS, ARB, AND BETA-BLOCKERS. CONDITION: Stable. DISPOSITION: The patient will be discharged to home. REFERRAL: The patient is to see Dr. Pham within the next week, also to see Dr. Iraheta within the next 1 to 2 weeks. Job ID: [id number]
== END 2018-08-01 12:10 | disposition home or self-care (01) | DRG 308 ==
LOC: ERS 12:27 → ERHOLD 15:45 → 2NO 20:28 → OBSVTOIN 08-01 08:56
PROVIDERS: ADMIT Internal Medicine; ATTEND Internal Medicine
DX: I47.2 Ventricular tachycardia (principal); I50.23 Acute on chronic systolic (congestive) heart failure; I11.0 Hypertensive heart disease with heart failure; F03.90 Unspecified dementia, unspecified severity, without behavioral disturbance, psychotic disturbance, mood disturbance, and anxiety; E11.621 Type 2 diabetes mellitus with foot ulcer; L97.509 Non-pressure chronic ulcer of other part of unspecified foot with unspecified severity; Z95.810 Presence of automatic (implantable) cardiac defibrillator; I48.91 Unspecified atrial fibrillation; I25.5 Ischemic cardiomyopathy; E11.51 Type 2 diabetes mellitus with diabetic peripheral angiopathy without gangrene; N40.0 Benign prostatic hyperplasia without lower urinary tract symptoms; I25.10 Atherosclerotic heart disease of native coronary artery without angina pectoris; E03.9 Hypothyroidism, unspecified; Z79.01 Long term (current) use of anticoagulants; Z89.511 Acquired absence of right leg below knee
CPT/HCPCS: 36415; 36416; 71045; 80048; 80053; 80162; 81003; 82550; 82553; 83735; 84484; 85025; 87040; 87086; 90471; 90662; 93005; G0008; J3480

== ENCOUNTER 2018-08-09 11:22 | Outpatient (CLI) | payer MEDICARE ==
--- NOTE | 2018-08-09 13:56 | PRG ---
DATE OF SERVICE: 08/09/2018 HISTORY: Mr. Jem Owens is a very pleasant 82-year-old gentleman, accompanied by his , who presents to the Wound Center for evaluation of an ulceration of the dorsum of the left foot. The patient was recently admitted to [facility] and seen by Cardiology. Previously, the patient had undergone percutaneous revascularization of the left lower extremity by Dr. Ledesma. Per Dr. Ledesma, the patient has non-reconstructible peripheral vascular disease. The patient has received treatment for the ulceration with EpiFix and Hyalomatrix. PHYSICAL EXAMINATION: VITAL SIGNS: Temperature 97.5, pulse 80, respirations 18, and blood pressure 92/52. Accu-Chek 63. EXTREMITIES: The ulceration over the dorsum of the left foot measures approximately 4.5 x 5.0 cm. Granulation tissue is visible within the wound margins. No purulent drainage is associated with the wound. Erythema of the dorsum of the foot is present. Maceration of the skin of the periwound is noted. The silicone layer of the Hyalomatrix applied at the time of the patient's last visit was removed after irrigation of the wound bed with normal saline. The wound was dressed with Adaptic, ABD, Kerlix, and an Russell bandage. ASSESSMENT AND PLAN: 1. Ulceration of dorsum of left foot as described above. Dressing changes of Adaptic, ABD, Kerlix, and an Russell bandage are to be performed on a daily basis after cleansing and irrigation with the assistance of home health and the patient's . I will see Mr. Owens again in 2 weeks. 2. History of subdural hematoma. 3. Ischemic cardiomyopathy. 4. Diabetes mellitus, type 2. The patient's Accu-Chek in clinic today 63. The patient's has been told that for optimal wound healing, the patient's blood glucoses should remain below 150. 5. History of hypertension. 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 7. Coronary artery disease. 8. Paroxysmal atrial fibrillation. 9. Peripheral vascular disease. 10. Dementia. Job ID: [id number]
== END 2018-08-09 11:23 | disposition home or self-care (01) ==
LOC: WCC 11:22
PROVIDERS: ATTEND Family Medicine
DX: E11.621 Type 2 diabetes mellitus with foot ulcer (principal); L97.529 Non-pressure chronic ulcer of other part of left foot with unspecified severity; I25.5 Ischemic cardiomyopathy; I10 Essential (primary) hypertension; I25.10 Atherosclerotic heart disease of native coronary artery without angina pectoris; I48.0 Paroxysmal atrial fibrillation; I73.9 Peripheral vascular disease, unspecified; F03.90 Unspecified dementia, unspecified severity, without behavioral disturbance, psychotic disturbance, mood disturbance, and anxiety; Z85.51 Personal history of malignant neoplasm of bladder; Z86.79 Personal history of other diseases of the circulatory system
CPT/HCPCS: 36416; 97602; A4218

== ENCOUNTER 2018-08-23 10:55 | Outpatient (CLI) | payer MEDICARE ==
--- NOTE | 2018-08-23 14:53 | PRG ---
DATE OF SERVICE: 08/23/2018 SUBJECTIVE: Mr. Jem Owens is a very pleasant 82-year-old gentleman, accompanied by his , who presents to the Wound Center for evaluation of an ulceration of the dorsum of the left foot. The patient was previously admitted to [facility] and seen by Cardiology. The patient has undergone percutaneous revascularization of the left lower extremity by Dr. Neal. Dr. Neal reiterated to the patient's that Mr. Owens has non-reconstructible peripheral vascular disease. The patient has received treatment for the ulceration with EpiFix and Hyalomatrix. OBJECTIVE: VITAL SIGNS: Temperature 97.4, pulse 88, respirations 18, and blood pressure 94/51. EXTREMITIES: The ulceration over the dorsum of the left foot measures approximately 4.5 x 4.8 cm. Granulation tissue is visible within the wound margins. No purulent drainage is associated with the wound. Erythema of the dorsum of the foot is present. No maceration of the skin of the periwound is noted. EpiFix 2 x 2 cm was applied to the wound bed of the ulceration. Prior to application of EpiFix, the wound bed was copiously irrigated with normal saline. The wound was then dressed with Adaptic, ABD, Kerlix, and an Russell bandage. ASSESSMENT AND PLAN: 1. Ulceration of dorsum of left foot as described above. Dressing changes of Adaptic, ABD, Kerlix, and an Russell bandage are to be performed on a daily basis after cleansing and irrigation with the assistance of Home Health and the patient's . Prior to application of EpiFix, bone fragments were palpable within the wound margins. Because of the palpable bone fragments and erythema of the dorsum of the left foot, plain films will be obtained today to look for findings suggestive of osteomyelitis. I will see Mr. Owens again in 2 weeks. 2. History of subdural hematoma. 3. Ischemic cardiomyopathy. 4. Diabetes mellitus, type 2. The patient's Accu-Chek in clinic today is 60. The patient's has been reminded that for optimal wound healing, the patient's blood glucoses should remain below 150. 5. History of hypertension. 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 7. Coronary artery disease. 8. Paroxysmal atrial fibrillation. 9. Peripheral vascular disease. 10. Dementia. Job ID: [id number]
--- NOTE | 2018-08-23 14:54 | RAD ---
3 VIEWS LEFT FOOT: Date: 08/23/18 HISTORY: Chronic wound dorsum left foot. Possible osteomyelitis. FINDINGS: Again noted is diffuse osteopenia. Area of irregularity involving the second and third tarsometatarsa l joints is again present, and there is also irregularity involving the first tarsometatarsal joint. These findings may be related to degenerative changes. No definitive osseous destruction is seen. Pablo ntar and posterior calcaneal enthesophytes are identified. Diffuse osteopenia is noted. There is mild subcutaneous soft tissue swelling seen at the dorsal aspect of the forefoot. Vascular calcifications are seen about the foot and ankle. IMPRESSION: 1. Findings likely related to degenerative changes involving the first through third tarsometatarsal joints. These findings are thought to more likely be related to degenerative changes as opposed to s eptic arthritis. There are no definitive radiographic findings to suggest osteomyelitis, but MRI left foot would be a better study of choice. 2. Diffuse osteopenia. 3. Prominent vascular calcifications. POS: [facility]
[2018-08-23] MEDS ORDERED: Sodium Chloride 0.9% 15 ML NEB ONE (15:00)
== END 2018-08-23 10:56 | disposition home or self-care (01) ==
LOC: WCC 10:55 → RAD 10:56
PROVIDERS: ATTEND Family Medicine
DX: L97.529 Non-pressure chronic ulcer of other part of left foot with unspecified severity (principal); M85.872 Other specified disorders of bone density and structure, left ankle and foot; M25.872 Other specified joint disorders, left ankle and foot
CPT/HCPCS: 15275; A4218; Q4131

== ENCOUNTER 2018-09-04 13:34 | Outpatient (CLI) | payer MEDICARE ==
[~2018-09-04 13:34] MED LIST changes: +ISOVUE-370 76%-LOCM 1 ML ONE; -Sodium Chloride 0.9% 15 ML NEB ONE
--- NOTE | 2018-09-04 15:24 | CT ---
CT OF THE LEFT FOOT WITH IV CONTRAST: INDICATION: History of diabetic ulceration, concern for osteomyelitis. CONTRAST: 70 cc of Isovue 370. FINDINGS: There is superficial ulceration involving the dorsal medial aspect of the foot at the level of the mi d foot. No destructive osteolysis is seen to suggest overt changes of osteomyelitis. There are dege nerative changes seen within the mid foot and forefoot. There are changes of osteomeatal necrosis in volving the tibial great toe sesamoid. No acute fracture is evident. Enthesopathic change off the c alcaneus. There are Monckeberg calcifications seen within the soft tissues. There is soft tissue sw elling and edema involving the dorsal aspect of the foot which may reflect chronic cellulitis or lymp hedema. IMPRESSION: 1. Decubitus ulceration involving the dorsomedial aspect of the left mid foot without overt destruct marcus changes to suggest the presence of osteomyelitis by CT. No large drainable fluid collection is e vident. 2. Soft tissue swelling and edema involving the dorsal aspect of the foot may be related to lymphede ma or cellulitis. 3. Diffuse osteopenia. 4. Scattered degenerative and osteoarthritic change. There is osteonecrosis involving the tibial gr eat toe sesamoid. There is enthesopathic change off of the calcaneus. POS: [facility]
== END 2018-09-04 13:35 | disposition home or self-care (01) ==
LOC: BICCT 13:34
PROVIDERS: ATTEND Family Medicine
DX: E11.621 Type 2 diabetes mellitus with foot ulcer (principal); L97.529 Non-pressure chronic ulcer of other part of left foot with unspecified severity; L89.629 Pressure ulcer of left heel, unspecified stage; M79.89 Other specified soft tissue disorders; R60.0 Localized edema; M87.878 Other osteonecrosis, left toe(s); M85.872 Other specified disorders of bone density and structure, left ankle and foot; M19.072 Primary osteoarthritis, left ankle and foot

== ENCOUNTER 2018-09-06 11:22 | Outpatient (CLI) | payer MEDICARE ==
--- NOTE | 2018-09-06 13:26 | PRG ---
DATE OF SERVICE: 09/06/2018 HISTORY: Mr. Jem Owens is a very pleasant 82-year-old gentleman, accompanied by his , who presents to the Wound Center for evaluation of an ulceration of the dorsum of the left foot. The patient was previously admitted to [facility] and seen by Cardiology. The patient has undergone percutaneous revascularization of the left lower extremity by Dr. Neal. During the patient's hospital stay, Dr. Neal reiterated to the patient's that Mr. Owens has nonreconstructible peripheral vascular disease. The patient has received treatment for the ulceration with EpiFix and Hyalomatrix. PHYSICAL EXAMINATION: VITAL SIGNS: Temperature 97.4, pulse 80, respirations 17, and blood pressure 102/52. Accu-Chek 129. EXTREMITIES: The ulceration over the dorsum of the left foot measures approximately 4.3 x 4.4 cm. Granulation tissue is visible within the wound margins. No purulent drainage is associated with the wound. No cellulitis of the left foot is appreciated. No maceration of the skin of the periwound is noted. EpiFix 2 x 2 cm was applied to the wound bed of the ulceration. Prior to the application of EpiFix, the wound bed was copiously irrigated with normal saline. The wound was then dressed with Adaptic, ABD, Kerlix, and an Russell bandage. ASSESSMENT AND PLAN: 1. Ulceration of dorsum of left foot as described above. Dressing changes of Adaptic, ABD, Kerlix, and an Russell bandage are to be continued on a daily basis after cleansing and irrigation with the assistance of Home Health and the patient's . CT scan of the left foot with IV contrast revealed no overt destructive changes to suggest the presence of osteomyelitis. Pre-albumin and albumin levels will be obtained today. The patient will continue Matt at the present time. I will see Mr. Owens again in 2 weeks. 2. History of subdural hematoma. 3. Ischemic cardiomyopathy. 4. Diabetes mellitus, type 2. The patient's Accu-Chek in clinic today is 129. The patient's has been reminded that for optimal wound healing. The patient's blood glucoses should remain below 150. 5. History of hypertension. 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 7. Coronary artery disease. 8. Paroxysmal atrial fibrillation. 9. Peripheral vascular disease. 10. Dementia. Job ID: [id number]
== END 2018-09-06 11:23 | disposition home or self-care (01) ==
LOC: WCC 11:22
PROVIDERS: ATTEND Family Medicine
DX: E11.621 Type 2 diabetes mellitus with foot ulcer (principal); L97.529 Non-pressure chronic ulcer of other part of left foot with unspecified severity; I25.5 Ischemic cardiomyopathy; I25.10 Atherosclerotic heart disease of native coronary artery without angina pectoris; I48.0 Paroxysmal atrial fibrillation; I73.9 Peripheral vascular disease, unspecified; F03.90 Unspecified dementia, unspecified severity, without behavioral disturbance, psychotic disturbance, mood disturbance, and anxiety; Z85.51 Personal history of malignant neoplasm of bladder; Z86.79 Personal history of other diseases of the circulatory system
CPT/HCPCS: 82040; 84134; Q4186; 36415

== ENCOUNTER 2018-09-20 11:00 | Outpatient (CLI) | payer MEDICARE ==
--- NOTE | 2018-09-20 13:48 | PRG ---
DATE OF SERVICE: 09/20/2018 HISTORY: Mr. Jem Owens is a very pleasant 82-year-old gentleman, accompanied by his , who presents [facility] for evaluation of an ulceration of the dorsum of the left foot. The patient was previously admitted to [facility] and seen by Cardiology. The patient has undergone percutaneous revascularization of the left lower extremity by Dr. Ledesma. During the patient's hospital stay, Dr. Ledesma reiterated to the patient's that Mr. Owens has non-reconstructible peripheral vascular disease. The patient has received treatment for the ulceration with EpiFix and Hyalomatrix. PHYSICAL EXAMINATION: VITAL SIGNS: Temperature 97.4, pulse 125, blood pressure 104/57. Accu-Chek 109. EXTREMITIES: The ulceration over the dorsum of the left foot measures approximately 4.2 x 4.3 cm. The dimensions of the wound at the time of the patient's visit on September 06, 2018 were approximately 4.3 x 4.4 cm. Granulation tissue is visible within the wound margins. No purulent drainage is associated with the wound. No cellulitis of the left foot is appreciated. No maceration of the skin of the periwound is noted. No significant edema of the left foot is appreciated on exam today. ASSESSMENT AND PLAN: 1. Ulceration of dorsum of left foot as described above. Dressing changes of Adaptic, ABD Kerlix, and an Russell bandage will be continued on a daily basis after cleansing and irrigation with the assistance of Home Health and the patient's . CT scan of the left foot with IV contrast revealed no overt destructive changes to suggest the presence of osteomyelitis. Matt will be continued. I will see Mr. Owens again in 2 to 4 weeks. 2. History of subdural hematoma. 3. Ischemic cardiomyopathy. 4. Diabetes mellitus, type 2. The patient's Accu-Chek in clinic today is 109. The patient's has been reminded that for optimal wound healing, the patient's blood glucoses should remain below 150. 5. History of hypertension. 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 7. Coronary artery disease. 8. Paroxysmal atrial fibrillation. 9. Peripheral vascular disease. 10. Dementia. Job ID: [id number]
[2018-09-20] MEDS ORDERED: Sodium Chloride 0.9% 15 ML NEB ONE ×2 (15:39→20:10)
== END 2018-09-20 11:01 | disposition home or self-care (01) ==
LOC: WCC 11:00
PROVIDERS: ATTEND Family Medicine
DX: E11.621 Type 2 diabetes mellitus with foot ulcer (principal); L97.529 Non-pressure chronic ulcer of other part of left foot with unspecified severity; I10 Essential (primary) hypertension; I25.10 Atherosclerotic heart disease of native coronary artery without angina pectoris; I48.0 Paroxysmal atrial fibrillation; E11.51 Type 2 diabetes mellitus with diabetic peripheral angiopathy without gangrene; F03.90 Unspecified dementia, unspecified severity, without behavioral disturbance, psychotic disturbance, mood disturbance, and anxiety; I25.5 Ischemic cardiomyopathy; Z86.79 Personal history of other diseases of the circulatory system; Z85.50 Personal history of malignant neoplasm of unspecified urinary tract organ
CPT/HCPCS: 97602; A4218

== ENCOUNTER 2018-09-27 11:15 | Outpatient (CLI) | payer MEDICARE ==
--- NOTE | 2018-09-27 14:08 | PRG ---
DATE OF SERVICE: 09/27/2018 HISTORY: Mr. Jem Owens is a very pleasant 82-year-old gentleman, accompanied by his , who presents to the [facility] for evaluation of an ulceration of the dorsum of the left foot. The patient was previously admitted to [facility] and seen by Cardiology. The patient has undergone percutaneous revascularization of the left lower extremity by Dr. Neal. During the patient's hospital stay, Dr. Neal reiterated to the patient's that Mr. Owens has non-reconstructible peripheral vascular disease. The patient has received treatment for the ulceration with EpiFix and Hyalomatrix. The patient presents to clinic today earlier than his scheduled appointment because of maceration of the skin of the left lateral foot in addition to erythema of the left foot. OBJECTIVE: VITAL SIGNS: Temperature 97.5, pulse 77, blood pressure 100/58. Accu-Chek 109. EXTREMITIES: The ulceration over the dorsum of the left foot measures approximately 4.3 x 4.4 cm. The dimensions of the wound at the time of the patient's visit on 09/20/2018 were approximately 4.2 x 4.3 cm. Granulation tissue is visible within the wound margins. No purulent drainage is associated with the wound. Erythema of the left foot is present. Maceration of the lateral foot is present. Ogsn-ee-trzyrtap edema of the left foot is present on exam today. ASSESSMENT AND PLAN: 1. Ulceration of dorsum of left foot as described above. Dressing changes of Adaptic, an ABD, Kerlix, and an Russell bandage as needed will be continued on a daily basis after cleansing and irrigation with the assistance of Home Health and the patient's . CT scan of the left foot with IV contrast revealed no overt destructive changes to suggest the presence of osteomyelitis. Matt will be continued. Arrangements will be made for the patient to be seen by Dr. Cyril Llamas. The patient has 2 ischemic ulcerations of the left lateral foot, which are both associated with dry, stable eschar. I will see Mr. Owens again after the patient is seen by Dr. Llamas. The patient's understands and is in agreement with the preceding treatment plan. The patient's has also been given a prescription for Mr. Owens for Augmentin 875/125, #28, one p.o. b.i.d. x14 days. 2. History of subdural hematoma. 3. Ischemic cardiomyopathy. 4. Diabetes mellitus type 2. The patient's Accu-Chek in clinic today is 109. The patient's has been reminded that for optimal wound healing, the patient's blood glucoses should remain below 150. 5. History of hypertension. 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 7. Coronary artery disease. 8. Paroxysmal atrial fibrillation. 9. Peripheral vascular disease. 10. Dementia. Job ID: [id number]
== END 2018-09-27 11:16 | disposition home or self-care (01) ==
LOC: WCC 11:15
PROVIDERS: ATTEND Family Medicine
DX: E11.621 Type 2 diabetes mellitus with foot ulcer (principal); L97.529 Non-pressure chronic ulcer of other part of left foot with unspecified severity; I25.5 Ischemic cardiomyopathy; I25.10 Atherosclerotic heart disease of native coronary artery without angina pectoris; I73.9 Peripheral vascular disease, unspecified; I48.0 Paroxysmal atrial fibrillation; F03.90 Unspecified dementia, unspecified severity, without behavioral disturbance, psychotic disturbance, mood disturbance, and anxiety; Z86.79 Personal history of other diseases of the circulatory system; Z85.51 Personal history of malignant neoplasm of bladder

== ENCOUNTER 2018-10-17 14:01 | Inpatient (IN) | payer MEDICARE ==
[2018-10-17 14:43] LABS: #Eosinphils 0.6 thou/uL (0.0-0.7); #Lymphocytes 0.9 thou/uL (1.20-3.40); #Monocytes 0.6 thou/uL (0.11-0.59); #Neutrophils 6.7 thou/uL (1.40-6.50); %Basophils 0.5 % (0.0-1.0); %Eosinophils 6.8 % (0.0-10.0); %Lymphocytes 9.9 % (21.0-51.0); %Monocytes 7.1 % (0.0-10.0); %Neutrophils 75.7 % (42.0-75.0); Hemoglobin 14.6 g/dL (14.0-18.0); Mean Corpuscular HGB CONC 30.8 g/dL (32.0-36.0); Mean Corpuscular Hemoglobin 30.5 pg (27.0-31.0); Mean Platelet Volume 8.9 fL (7.4-10.4); Platelet Count 202 thou/uL (130-400); RBC Distribution Width 16.3 % (11.5-14.5); Red Blood Cell (RBC) Count 4.78 mill/uL (4.70-6.10); White Blood Cell (WBC) Count 8.8 thou/uL (4.8-10.8)
[2018-10-17 15:03] LABS: ALT (SGPT) 13 U/L (8-55); AST (SGOT) 21 U/L (5-34); Albumin 2.8 g/dL (3.4-4.8); Alkaline Phosphatase 138 U/L (40-150); Anion Gap 15 mmol/L (10-20); BUN (Urea Nitrogen) 37 mg/dL (8.4-25.7); Bilirubin, Total 0.5 mg/dL (0.2-1.2); Calc. Creatinine Clearance 0 mL/min (70-130); Calcium 8.5 mg/dL (7.8-10.44); Carbon Dioxide 30 mmol/L (23-31); Chloride 98 mmol/L (98-107); Estimated GFR-MDRD 64; Globulin 2.8 g/dL (2.4-3.5); Glucose 104 mg/dL (83-110); Potassium 4.6 mmol/L (3.5-5.1); Protein, Total 5.6 g/dL (5.8-8.1); Sodium 138 mmol/L (136-145)
--- NOTE | 2018-10-17 15:41 | RAD ---
CHEST ONE VIEW: History: Cough. Comparison: 07-30-18 FINDINGS: Heart size is enlarged. Enlarging right layering pleural effusion. Small left effusion. Mild pulmonar y venous congestion. No pneumothorax. Cardiac leads are similar. IMPRESSION: 1. Enlarging right pleural effusion. 2. Cardiomegaly and mild pulmonary edema. POS: TPC
[2018-10-17] MEDS ORDERED: Furosemide 40 MG TAB ONE (16:40)
[2018-10-17] MEDS ORDERED: Aspirin 325 MG TAB ONE (16:40)
[2018-10-17] MEDS ORDERED: Furosemide 40 MG/4 ML VIAL ONE (16:40)
[2018-10-17] MEDS ORDERED: Ondansetron ODT 4 MG TAB SL PRN (18:55)
[2018-10-17] MEDS ORDERED: Ondansetron PF 4 MG/2 ML Vial IVP PRN (18:55)
[2018-10-17] MEDS ORDERED: Acetaminophen 325 MG TAB PO PRN (18:55)
[2018-10-17] MEDS ORDERED: Azelastine 137 MCG/Spray 30 ML NS PRN (21:02)
[2018-10-17] MEDS ORDERED: Loratadine 10 MG TAB PO PRN (21:02)
[2018-10-17] MEDS ORDERED: Non-Formulary Item 1 EACH (Levocetirizine Dihydrochloride [Levocetirizine Dihydrochloride PO PRN (21:02)
--- NOTE | 2018-10-17 22:47 | HP ---
PRIMARY CARE DOCTOR: Dr. Ankit Dorsey. CODE STATUS: Full code. TIME OF EVALUATION: 8:50 p.m. CHIEF COMPLAINT: Shortness of breath. HISTORY OF PRESENT ILLNESS: This is an 82-year-old male patient with past medical history of congestive heart failure, bladder cancer, coronary artery disease, hyperlipidemia, came to the hospital after having gradually worsening shortness of breath for the past few days. No clear triggers, no alleviating factors. The patient has a weight gain of 8 pounds. The patient has a history of atrial fibrillation and CHF and has been taking medication at home, but he has no symptoms or no improvement. Symptoms are generalized and wtudhhik-se-ktqtgm. REVIEW OF SYSTEMS: Unable to obtain as the patient has dementia. Information has been gathered from daughter and basically the information given in the HPI. PAST MEDICAL HISTORY: As described in the HPI. PAST SURGICAL HISTORY: Cataracts, right BKA, pacemaker defibrillator. PSYCH HISTORY: Includes new-onset anxiety. SOCIAL HISTORY: Former tobacco user, quit smoking more than 10 years ago. Drinks socially every week. FAMILY HISTORY: Noncontributory to current presentation. KNOWN ALLERGIES: YARI inhibitors, ARB, , beta blockers. REPORTED MEDICATIONS: 1. Eliquis. 2. Digoxin. 3. Atorvastatin. 4. Torsemide. 5. Potassium chloride. 6. Donepezil. 7. Levothyroxine. 8. Azelastine. 9. Mucinex. 10. Fexofenadine. 11. Trazodone. 12. Magnesium oxide. 13. Vitamin B6. 14. Levemir. 15. Finasteride. 16. Levocetirizine. PHYSICAL EXAMINATION: VITAL SIGNS: On presentation blood pressure 118/66, heart rate 58, respiratory rate was 18, oxygen saturation was 94 on room air. GENERAL APPEARANCE: The patient is alert, oriented, not in acute distress. HEENT: Eyes, normal conjunctivae. Moist oral mucosa. Anicteric. No JVD. RESPIRATORY: Bilateral air entry. Bilateral rales. No wheezing. Symmetric expansion. CARDIOVASCULAR: Normal rate, regular rhythm. No murmur or gallop. Left leg edema. ABDOMEN: Soft, normal bowel sounds. MUSCULOSKELETAL: Baseline range of motion and strength. No tenderness. There is no healing wound on the left lower extremity. 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 SKIN: Warm and intact. No pallor. No rash, except for his left lower extremity that have chronic trophic and color changes with nonhealing wound on the left leg. Peripheral pulses are present. Capillary refill seems to intact. NEURO: No evidence of any new focal weakness. Baseline speech. The patient has change in sensitivity in left lower extremity. Cranial nerve seems to be intact. PSYCH: The patient is in good mood. The patient has underlying dementia, not optimal judgment. DIAGNOSTIC STUDIES: EKG; the patient has an electronic ventricular pacemaker at the rate of 70 duration, QRS 192, QT corrected of 514. Chest x-ray was reviewed. The patient has enlarging right pleural effusion, cardiomegaly, and mild pulmonary edema. LABORATORY DATA: Labs were reviewed. White count 8.8, hemoglobin 14.6, MCV 99, platelet count 202, neutrophils 75.7, lymphocytes 9.9. Chemistry; sodium 138, potassium 4.6, chloride 98, carbon dioxide 30, anion gap 15, BUN 37, creatinine 1.1, GFR 64, glucose 104, calcium 9.5, total bilirubin 0.5, AST 21, ALT 13, alkaline phosphatase is 138. Troponin 0.058, second troponin 0.048[place] [address].5. Serum total protein 5.6, albumin 2.8, globulin 2.8, albumin to globulin ratio is 1.0. ASSESSMENT AND PLAN: The patient will be placed in the hospital with following medical problems: 1. Acute exacerbation of congestive heart failure. The patient has pulmonary edema on the chest x-ray with right pleural effusion. We will start diuresis. The patient's saturation is good in 2 L nasal cannula. We will do echo since the last echo was done in 2016. In 2016, the EF was 15% to 20%, so this is a systolic congestive heart failure. We will continue with diuresis, reconcile home medications. 2. Hypothyroidism, continue levothyroxine. 3. Dementia, the patient will need supportive care as inpatient. 4. Coronary artery disease, reconcile home medications. 5. Hyperlipidemia, low-cholesterol diet is advised. Job ID: [id number] [facility]
[2018-10-18] MEDS: guaiFENesin ER 600 MG TAB PO PRN ×2 (04:42→21:31)
[2018-10-18] MEDS: Levothyroxine Sodium 50 MCG TAB PO SCH (04:43)
[2018-10-18 06:36] LABS: Band 1 % (5-11); Elliptocytes SLIGHT = 2-5 cells (100X) (0-1/hpf); Eosinophils 7 % (0-10); Hemoglobin 14.1 g/dL (14.0-18.0); Lymphocytes 7 % (21-51); MDiff Complete? YES; Mean Corpuscular HGB CONC 29.7 g/dL (32.0-36.0); Mean Corpuscular Hemoglobin 29.3 pg (27.0-31.0); Mean Corpuscular Volume 98.7 fL (78.0-98.0); Mean Platelet Volume 9.2 fL (7.4-10.4); Monocytes 4 % (0-10); Neutrophil 80 % (42-75); Platelet Count 221 thou/uL (130-400); RBC Distribution Width 16.2 % (11.5-14.5); Reactive Lymphocytes 1 % (0-10); Red Blood Cell (RBC) Count 4.81 mill/uL (4.70-6.10); White Blood Cell (WBC) Count 7.6 thou/uL (4.8-10.8)
[2018-10-18] MEDS: pyridOXINE 50 MG (B6) TAB PO SCH (08:44)
[2018-10-18] MEDS: Potassium Chloride 20 MEQ TAB PO SCH ×2 (08:44→17:20)
[2018-10-18] MEDS: Cyanocobalamin (Vitamin B-12) 1,000 MCG TAB PO SCH (08:44)
[2018-10-18] MEDS: Digoxin 0.125 MG TAB PO SCH (08:45)
[2018-10-18] MEDS: Apixaban 2.5 MG TAB PO SCH ×2 (08:45→21:31)
[2018-10-18] MEDS: Finasteride 5 MG TAB PO SCH (08:45)
[2018-10-18] MEDS: Donepezil HCl 10 MG TAB PO SCH (08:45)
[2018-10-18] MEDS: Magnesium Oxide 400 MG TAB PO SCH (08:45)
[2018-10-18] MEDS: Atorvastatin Calcium 20 MG TAB PO SCH (08:45)
[2018-10-18] MEDS ORDERED: Furosemide 40 MG/4 ML VIAL SLOW IVP SCH (09:00)
[2018-10-18] MEDS ORDERED: Torsemide 20 MG TAB PO SCH (09:00)
--- NOTE | 2018-10-18 10:55 | CON ---
DATE OF CONSULTATION: 10/18/2018 REASON FOR CONSULTATION: Congestive heart failure, systolic, acute on chronic. HISTORY OF PRESENT ILLNESS: Mr. Owens is an 82-year-old gentleman with a long history of systolic congestive heart failure, who came to the hospital yesterday, brought in here for low oxygen levels, confusion, disorientation, and worsening difficulty breathing. Mr. Owens has a very long history of coronary artery disease and systolic congestive heart failure. The patient has had multiple admissions for congestive heart failure systolic and also has been seen on multiple occasions in the office to try to treat his heart failure. Over the years, he had to stop the carvedilol and lisinopril due to hypotension. His noted the patient has been increasingly anxious at home. Also, can only sleep a few hours before he has to sit up. When they checked his oxygen levels, the home health nurse noted that his oxygen levels were very low. He came to the emergency room. He got intravenous diuretic yesterday, feeling somewhat better. PAST HISTORY: As outlined above. MEDICATIONS AT HOME: 1. He was not taking YARI inhibitors or carvedilol that had to be stopped due to hypotension. 2. Apixaban 2.5 mg twice a day for atrial fibrillation. 3. Digoxin 0.125 mg a day. 4. Torsemide 40 mg twice a day. 5. Potassium 20 mEq twice a day. 6. Atorvastatin 20 mg a day. 7. Levothyroxine. REVIEW OF SYSTEMS: CONSTITUTIONAL: Positive for weakness, fatigue, and some disorientation. VISION: No changes. HEARING: No changes. PULMONARY: Positive for orthopnea and difficulty breathing. CARDIAC: No chest pain, otherwise outlined above. ABDOMEN: No nausea, vomiting, or diarrhea. SKIN: No rashes. NEUROLOGIC: He has some dementia and anxiety. SOCIAL HISTORY: He has an extremely supportive . He does not use alcohol or tobacco. PHYSICAL EXAMINATION: GENERAL: This is a very pleasant, chronically ill-appearing 82-year-old man. He is alert and oriented today. VITAL SIGNS: His blood pressure today is higher than usual 115/79, pulse 72. HEENT: Eyes, sclerae nonicteric. Mouth, mucous membranes moist. NECK: Supple. No lymphadenopathy. LUNGS: Clear of any rales. He does have expiratory wheezing and some rhonchi. CARDIAC: Normal S1, normal S2. There is a 2/6 apical systolic murmur. No diastolic murmur. ABDOMEN: Soft and nontender. EXTREMITIES: He has bilateral lower extremity amputation. PERTINENT LABORATORY: His potassium was 4.6. BNP was 1031. Troponin 0.058. Chest x-ray cardiomegaly with pulmonary edema. EKG is a ventricular paced rhythm with a right bundle branch block pattern compatible with biventricular pacing. The patient has a history of ejection fraction of 15%. ASSESSMENT: 1. Congestive heart failure, systolic, acute on chronic decompensated. 2. History of hypotension. 3. Unable to tolerate YARI inhibitors or beta blockers in the past due to hypotension. 4. Anxiety, probably a lot of that due to pulmonary edema. 5. History of atrial arrhythmias. 6. History of defibrillator implantation. The patient has a right bundle branch block pattern on the EKG and it looks like a biventricular device on the chest x-ray. PLAN: 1. We will go to intravenous diuretics. 2. Entresto tonight, hopefully can tolerate in terms of blood pressure. 3. Echocardiogram. 4. Continue anticoagulation. We will follow with you. Long-term prognosis is guarded to poor. Job ID: [id number]
--- NOTE | 2018-10-18 11:58 | PDOC.PN ---
- Subjective Encounter Start Date: 10/18/18 Encounter Start Time: 09:00 Subjective: sob is better this morning but has wheezing -: at bedside - Objective Resuscitation Status - Order Detail: 10/17/18 20:12 Resuscitation Status Routine Resuscitation Status: FULL: Full Resuscitation MAR Reviewed: Yes Vital Signs & Weight: Vital Signs (12 hours) Temp Pulse Resp BP Pulse Ox 10/18/18 08:45 93 L 10/18/18 07:34 97.7 F 72 20 115/79 93 L 10/18/18 04:25 97.5 F L 75 20 120/57 L 97 Weight Admit Weight 160 lb 8 oz Weight 160 lb 8 oz Result Diagrams: 10/18/18 05:32 10/17/18 14:36 Additional Labs: Accuchecks 10/18/18 10/18/18 10/17/18 10:43 05:43 20:52 POC Glucose 96 120 H 168 H Phys Exam - Physical Examination HEENT: PERRLA, moist MMs Neck: no JVD, supple Respiratory: wheezing present rales+ Cardiovascular: RRR, no significant murmur Gastrointestinal: soft, non-tender, positive bowel sounds Musculoskeletal: no edema, pulses present Neurological: non-focal, moves all 4 limbs Dx/Plan (1) Acute on chronic systolic (congestive) heart failure Code(s): I50.23 - ACUTE ON CHRONIC SYSTOLIC (CONGESTIVE) HEART FAILURE Status : Acute Comment: prior ef of 15% (2) Hypothyroidism Code(s): E03.9 - HYPOTHYROIDISM, UNSPECIFIED Status: Chronic Qualifiers: Hypothyroidism type: unspecified Qualified Code(s): E03.9 - Hypothyroidism , unspecified (3) Atrial fibrillation Code(s): I48.91 - UNSPECIFIED ATRIAL FIBRILLATION Status: Chronic Comment: paroxysmal (4) Diabetes mellitus type 2 Code(s): E11.9 - TYPE 2 DIABETES MELLITUS WITHOUT COMPLICATIONS Status: Chronic (5) Dyslipidemia Code(s): E78.5 - HYPERLIPIDEMIA, UNSPECIFIED Status: Chronic (6) HYPERTENSION Status: Chronic (7) PAD (peripheral artery disease) Code(s): I73.9 - PERIPHERAL VASCULAR DISEASE, UNSPECIFIED Status: Chronic Comment: h/o R BKA - Plan will add donna d/w -: echo pending -: is on eliquis, lipitor, lasix, started on entresto -: continue proscar, lantus, synthroid and aricept -: to mobilize as tolerated * . Review of Systems - Medications/Allergies Allergies/Adverse Reactions: Allergies Allergy/AdvReac Type Severity Reaction Status Date / Time YARI Inhibitors Allergy Mild Verified 04/05/18 18:27 ARB-Angiotensin Receptor Allergy Mild Verified 04/05/18 18:28 Antagonist Beta-Blockers Allergy Mild Verified 04/05/18 18:28 (Beta-Adrenergic Bloc Medications: Current Medications Albuterol/Ipratropium (Duoneb) 3 ml NEB [id number] [id number] Apixaban (Eliquis) 2.5 mg PO BID [facility] Last Admin: 10/18/18 08:45 Dose: 2.5 mg Atorvastatin Calcium (Lipitor) 20 mg PO DAILY [facility] Last Admin: 10/18/18 08:45 Dose: 20 mg Azelastine HCl (Azelastine) 0 ml NS BIDPRN PRN PRN Reason: Allergies Cyanocobalamin (Vitamin B-12) 500 mcg PO DAILY [facility] Last Admin: 10/18/18 08:44 Dose: 500 mcg Digoxin (Lanoxin) 0.125 mg PO DAILY [facility] Last Admin: 10/18/18 08:45 Dose: 0.125 mg Donepezil HCl (Aricept) 10 mg PO DAILY [facility] Last Admin: 10/18/18 08:45 Dose: 10 mg Finasteride (Proscar) 5 mg PO DAILY [facility] Last Admin: 10/18/18 08:45 Dose: 5 mg Furosemide (Lasix) 40 mg SLOW IVP 0600,1400 [facility] Guaifenesin (Mucinex) 600 mg PO Q12H PRN PRN Reason: Cough Last Admin: 10/18/18 04:42 Dose: 600 mg Insulin Glargine 12 units/ (Miscellaneous Medication) 0.12 mls @ 0 mls/hr SC HS [facility] Levothyroxine Sodium (Synthroid) 50 mcg PO 0600 [facility] Last Admin: 10/18/18 04:43 Dose: 50 mcg Loratadine (Claritin) 10 mg PO DAILYPRN PRN PRN Reason: Allergies Magnesium Oxide (Magnesium Oxide) 400 mg PO DAILY [facility] Last Admin: 10/18/18 08:45 Dose: 400 mg Potassium Chloride (K-Dur) 20 meq PO BID[facility] Last Admin: 10/18/18 08:44 Dose: 20 meq Pyridoxine HCl (Vitamin B 6) 100 mg PO DAILY [facility]NA Last Admin: 10/18/18 08:44 Dose: 100 mg Sacubitril/Valsartan (Entresto 24.5 Mg-25.5 Mg Tablet) 1 tab PO BID [facility] Sodium Chloride (Flush - Normal Saline) 10 ml IVF Q12HR ANA Sodium Chloride (Flush - Normal Saline) 10 ml IVF PRN PRN PRN Reason: Saline Flush
[2018-10-18] MEDS: Furosemide 40 MG/4 ML VIAL SLOW IVP SCH (14:17)
[2018-10-18] MEDS ORDERED: Sacubitril 24.5 MG/Valsartan 25.5 MG TABLET PO SCH (21:00)
[2018-10-18] MEDS ORDERED: INSULIN DETEMIR SC SCH (21:00)
[2018-10-18] MEDS: Insulin Glargine 12 UNITS in Pre-Filled Syringe 1 EACH SC SCH (21:31)
[2018-10-18] MEDS: Sacubitril 24.5 MG/Valsartan 25.5 MG TABLET PO SCH (21:52)
[2018-10-19 05:35] LABS: Anion Gap 13 mmol/L (10-20); BUN (Urea Nitrogen) 45 mg/dL (8.4-25.7); Calc. Creatinine Clearance 51 mL/min (70-130); Calcium 8.2 mg/dL (7.8-10.44); Carbon Dioxide 31 mmol/L (23-31); Chloride 100 mmol/L (98-107); Estimated GFR-MDRD 63; Glucose 75 mg/dL (83-110); Potassium 4.8 mmol/L (3.5-5.1); Sodium 139 mmol/L (136-145)
[2018-10-19] MEDS: Levothyroxine Sodium 50 MCG TAB PO SCH (06:00)
[2018-10-19] MEDS: Furosemide 40 MG/4 ML VIAL SLOW IVP SCH (06:00)
[2018-10-19] MEDS: Furosemide 40 MG TAB PO SCH (08:03)
[2018-10-19] MEDS: Potassium Chloride 20 MEQ TAB PO SCH ×2 (09:39→17:24)
[2018-10-19] MEDS: pyridOXINE 50 MG (B6) TAB PO SCH (09:39)
[2018-10-19] MEDS: Cyanocobalamin (Vitamin B-12) 1,000 MCG TAB PO SCH (09:39)
[2018-10-19] MEDS: Sacubitril 24.5 MG/Valsartan 25.5 MG TABLET PO SCH ×2 (09:39→20:41)
[2018-10-19] MEDS: Finasteride 5 MG TAB PO SCH (09:39)
[2018-10-19] MEDS: Magnesium Oxide 400 MG TAB PO SCH (09:40)
[2018-10-19] MEDS: Digoxin 0.125 MG TAB PO SCH (09:41)
[2018-10-19] MEDS: Apixaban 2.5 MG TAB PO SCH ×2 (09:41→20:40)
[2018-10-19] MEDS: Donepezil HCl 10 MG TAB PO SCH (09:42)
[2018-10-19] MEDS: Atorvastatin Calcium 20 MG TAB PO SCH (09:42)
--- NOTE | 2018-10-19 09:47 | PDOC.PN ---
- Subjective Encounter Start Date: 10/19/18 Encounter Start Time: 08:40 Subjective: eating breakfast, no sob or dizziness -: feels better -: at bedside - Objective Resuscitation Status - Order Detail: 10/17/18 20:12 Resuscitation Status Routine Resuscitation Status: FULL: Full Resuscitation MAR Reviewed: Yes Vital Signs & Weight: Vital Signs (12 hours) Temp Pulse Resp BP BP Pulse Ox 10/19/18 09:41 72 10/19/18 07:40 97.6 F 80 18 92/56 L 94 L 10/19/18 07:02 73 18 93 L 10/19/18 02:55 97.5 F L 71 16 99/51 L 93 L 10/19/18 01:40 70 20 98/53 L 95 10/19/18 00:08 65 16 93 L 10/19/18 00:00 20 Weight Admit Weight 160 lb 8 oz Weight 156 lb 14.4 oz I&O: 10/18/18 10/19/18 10/20/18 06:59 06:59 06:59 Intake Total 494 Balance 494 Result Diagrams: 10/18/18 05:32 10/19/18 04:58 Additional Labs: Accuchecks 10/19/18 10/19/18 10/18/18 05:35 01:40 20:02 POC Glucose 92 119 H 170 H 10/18/18 10/18/18 10/18/18 18:32 17:18 10:43 POC Glucose 182 H 270 H 96 Phys Exam - Physical Examination HEENT: PERRLA, moist MMs Neck: no JVD, supple Respiratory: no wheezing, no rales Cardiovascular: RRR, no significant murmur Gastrointestinal: soft, non-tender, positive bowel sounds Musculoskeletal: pulses present, edema present left bka Neurological: non-focal, moves all 4 limbs Psychiatric: A&O x 3 Dx/Plan (1) Acute on chronic systolic (congestive) heart failure Code(s): I50.23 - ACUTE ON CHRONIC SYSTOLIC (CONGESTIVE) HEART FAILURE Status : Acute Comment: ef of 15% with mod mitral regurg and severe pulm htn (2) Hypothyroidism Code(s): E03.9 - HYPOTHYROIDISM, UNSPECIFIED Status: Chronic Qualifiers: Hypothyroidism type: unspecified Qualified Code(s): E03.9 - Hypothyroidism , unspecified (3) Atrial fibrillation Code(s): I48.91 - UNSPECIFIED ATRIAL FIBRILLATION Status: Chronic Comment: paroxysmal (4) Diabetes mellitus type 2 Code(s): E11.9 - TYPE 2 DIABETES MELLITUS WITHOUT COMPLICATIONS Status: Chronic (5) Dyslipidemia Code(s): E78.5 - HYPERLIPIDEMIA, UNSPECIFIED Status: Chronic (6) HYPERTENSION Status: Chronic (7) PAD (peripheral artery disease) Code(s): I73.9 - PERIPHERAL VASCULAR DISEASE, UNSPECIFIED Status: Chronic Comment: h/o R BKA - Plan dc iv lasix, continue entresto -: watch for renal function -: sbp around 90 this am -: d/w , has no true allergies to BB or yari/arb's except for hypotens -: dc plan in 24hrs if his renal function and BP are better * . Continue lantus, dig, lipitor, eliquis, aricept, proscar and synthroid. Review of Systems - Medications/Allergies Allergies/Adverse Reactions: Allergies Allergy/AdvReac Type Severity Reaction Status Date / Time YARI Inhibitors Allergy Mild Verified 04/05/18 18:27 ARB-Angiotensin Receptor Allergy Mild Verified 04/05/18 18:28 Antagonist Beta-Blockers Allergy Mild Verified 04/05/18 18:28 (Beta-Adrenergic Bloc Medications: Current Medications Albuterol/Ipratropium (Duoneb) 3 ml NEB [id number] [facility] Last Admin: 10/19/18 07:02 Dose: 3 ml Apixaban (Eliquis) 2.5 mg PO BID [facility] Last Admin: 10/19/18 09:41 Dose: 2.5 mg Atorvastatin Calcium (Lipitor) 20 mg PO DAILY [facility] Last Admin: 10/19/18 09:42 Dose: 20 mg Azelastine HCl (Azelastine) 0 ml NS BIDPRN PRN PRN Reason: Allergies Cyanocobalamin (Vitamin B-12) 500 mcg PO DAILY [facility] Last Admin: 10/19/18 09:39 Dose: 500 mcg Digoxin (Lanoxin) 0.125 mg PO DAILY [facility] Last Admin: 10/19/18 09:41 Dose: 0.125 mg Donepezil HCl (Aricept) 10 mg PO DAILY [facility] Last Admin: 10/19/18 09:42 Dose: 10 mg Finasteride (Proscar) 5 mg PO DAILY [facility] Last Admin: 10/19/18 09:39 Dose: 5 mg Furosemide (Lasix) 40 mg PO DAILY-AC [facility] Last Admin: 10/19/18 08:03 Dose: Not Given Guaifenesin (Mucinex) 600 mg PO Q12H PRN PRN Reason: Cough Last Admin: 10/18/18 21:31 Dose: 600 mg Insulin Glargine 12 units/ (Miscellaneous Medication) 0.12 mls @ 0 mls/hr SC HS [facility] Last Admin: 10/18/18 21:31 Dose: 0.12 mls Levothyroxine Sodium (Synthroid) 50 mcg PO 0600 [facility] Last Admin: 10/19/18 06:00 Dose: 50 mcg Loratadine (Claritin) 10 mg PO DAILYPRN PRN PRN Reason: Allergies Magnesium Oxide (Magnesium Oxide) 400 mg PO DAILY [facility] Last Admin: 10/19/18 09:40 Dose: 400 mg Potassium Chloride (K-Dur) 20 meq PO BID-[facility] Last Admin: 10/19/18 09:39 Dose: 20 meq Pyridoxine HCl (Vitamin B 6) 100 mg PO DAILY [facility] Last Admin: 10/19/18 09:39 Dose: 100 mg Sacubitril/Valsartan (Entresto 24.5 Mg-25.5 Mg Tablet) 1 tab PO BID [facility] Last Admin: 10/19/18 09:39 Dose: 1 tab Sodium Chloride (Flush - Normal Saline) 10 ml IVF Q12HR [facility] Last Admin: 10/19/18 09:42 Dose: 10 ml Sodium Chloride (Flush - Normal Saline) 10 ml IVF PRN PRN PRN Reason: Saline Flush Last Admin: 10/19/18 06:01 Dose: 10 ml
--- NOTE | 2018-10-19 10:24 | PRG ---
DATE OF SERVICE: 10/19/2018 SUBJECTIVE: Mr. Owens does not have shortness of breath or chest pain today. He did become confused and disoriented last night, did not recognize his , but he is back to much better today. His weight is gone from 160 to 156. OBJECTIVE: LUNGS: Now clear. There is no wheezing. CARDIAC: Normal S1, normal S2. ABDOMEN: Soft and nontender. EXTREMITIES: There is no edema. He has bilateral lower extremity amputation. LABORATORY DATA: The hemoglobin is 14.1 yesterday. BUN is up to 45, creatinine 1.12. Echocardiogram showed ejection fraction of 15% to 20%. Moderate to severe mitral and tricuspid insufficiency with pulmonary hypertension. ASSESSMENT: 1. Congestive heart failure, systolic, acute on chronic, somewhat better today. 2. Hypotension, chronic, unable to tolerate YARI inhibitors or beta blockers in the past due to hypotension. So far, he has been tolerating Entresto okay. PLAN: Do a basic met tomorrow. Hopefully, he could be released home tomorrow. Continue Entresto. Agree with changing the diuretic to oral. Job ID: [id number]
--- NOTE | 2018-10-19 12:31 | PQF ---
CLINICAL DOCUMENTATION IMPROVEMENT CLARIFICATION FORM: ICD-10 Updated PLEASE DO AN ADDENDUM TO THE PROGRESS NOTE WITH ANY DOCUMENTATION UPDATES OR ADDITIONS AND CARRY THROUGH TO DC SUMMARY. THANK YOU. DATE: 10/19/18 ATTN: DR. WANG Please exercise your independent, professional judgment in responding to the clarification form. Clinical indicators are provided on the bottom of this form for your review Please check appropriate box(s): [ x ] Acute Respiratory Failure: [ x ] with Hypoxia[ ] with Hypercapnia [ ] Acute On Chronic Respiratory Failure: [ ] with Hypoxia [ ] with Hypercapnia [ ] Chronic Respiratory Failure only [ ] with Hypoxia [ ] with Hypercapnia [ ] Hypoxia [ x ] Other diagnosis _secondary to chf exacerbation, resolved [ ] Unable to determine In addition, please specify: Present on Admission (POA): [ x ] Yes [ ] No [ ] Unable to determine For continuity of documentation, please document condition throughout progress notes and discharge summary. Thank You. CLINICAL INDICATORS - SIGNS / SYMPTOMS / LABS ER NOTE: "PATIENT REPORTS THAT HIS HOME HEALTH NURSE CAME TODAY, WAS SATTING ~70 % ON RA" "REPORTS COUGH AND SPUTUM" CHEST XRAY 10/17: "ENLARGING RIGHT LAYERING PLEURAL EFFUSION. SMALL LEFT EFFUSION. MILD PULMONARY VENOUS CONGESTION." RR 22-24 RISKS: CHF EXACERBATION TREATMENT: SUPPLEMENTAL OXYGEN IV LASIX (ER) NEBS CHEST XRAY SAP Coordinator Of Placement [employer] Winform Viewer(This form is maintained as a part of the permanent medical record) 2014 [employer]. All Rights Reserved [email or web address] Office: [phone] [facility]
--- NOTE | 2018-10-19 12:42 | PQF ---
CLINICAL DOCUMENTATION IMPROVEMENT CLARIFICATION FORM: ICD-10 Updated PLEASE DO AN ADDENDUM TO THE PROGRESS NOTE WITH ANY DOCUMENTATION UPDATES OR ADDITIONS AND CARRY THROUGH TO DC SUMMARY. THANK YOU. Date: 10/19/18 ATTN: DR. WANG Please exercise your independent, professional judgment in responding to the clarification form. Clinical indicators are provided on the bottom of this form for your review Please check appropriate box(s): [ x] Protein Calorie Malnutrition: [ x] Mild [ ] Moderate [ ] Severe [ ] Other Malnutrition (please specify) __ [ ] Underweight without malnutrition [ ] Cachexia [ ] Other diagnosis [ ] Unable to determine In addition, please specify: Present on Admission (POA): [ x] Yes [ ] No [ ] Unable to determine CLINICAL INDICATORS - SIGNS / SYMPTOMS / LABS DIETARY ASSESSMENT 10/18: "EATING VERY LITTLE THE LAST 3-4 DAYS" "TEMPORAL WASTING OBSERVED" "KCAL AND G PROTEIN REQUIREMENTS LIKELY NOT MET" NURSING ASSESSMENT 10/18: "CANNOT STAND, CANNOT WALK" "LIMITED MOBILITY" BMI 20 10/17: ALBUMIN 2.8 RISKS: DEMENTIA DIABETES POOR WOUND HEALING TREATMENT: DIETARY CONSULT MARISELA AND GLUCERNA SUPPLEMENTS BID Moderate Malnutrition (in acute illness) Energy Intake: <75% of estimated energy requirement for > 7 days Weight Loss: 1-2%/1 week; 5%/ 1 month; 7.5%/3 months Other: mild body fat loss; mild muscle mass loss; mild fluid accumulation; Severe Malnutrition (in acute illness) Energy Intake: < 50% of estimated energy requirement for > 5 days Weight Loss: >1-2%/1 week; >5%/1 month; >7.5%/3 months Other: moderate body fat loss; moderate muscle mass loss; moderate- severe fluid accumulation; measurably reduced home health cna strength Moderate Malnutrition (in chronic illness) Energy Intake: <75% of estimated energy requirement for >1 month Weight Loss: 5%/1 month; 7.5%/3 months; 10%/6 months; 20%/1 year Other: mild body fat loss; mild muscle mass loss; mild fluid accumulation Severe Malnutrition (in chronic illness) Energy Intake: <75% of estimated energy requirement for >1 month Weight Loss: >5%/1 month; >7.5%/3 months; >10%/6 months; >20%/1 year Other: severe body fat loss; severe muscle mass loss; severe fluid accumulation ; measurably reduced home health cna strength (This form is maintained as a part of the permanent medical record) 2014 [employer] All Rights Reserved [email or web address] Office: [phone] [facility]
[2018-10-19] MEDS: Insulin Glargine 12 UNITS in Pre-Filled Syringe 1 EACH SC SCH (20:41)
[2018-10-19] MEDS: guaiFENesin ER 600 MG TAB PO PRN (20:41)
[2018-10-20 05:35] LABS: Anion Gap 11 mmol/L (10-20); BUN (Urea Nitrogen) 47 mg/dL (8.4-25.7); Calc. Creatinine Clearance 59 mL/min (70-130); Calcium 8.3 mg/dL (7.8-10.44); Carbon Dioxide 31 mmol/L (23-31); Chloride 101 mmol/L (98-107); Estimated GFR-MDRD 73; Potassium 4.7 mmol/L (3.5-5.1); Sodium 138 mmol/L (136-145)
[2018-10-20 05:36] LABS: Glucose 41 mg/dL (83-110)
[2018-10-20] MEDS: Levothyroxine Sodium 50 MCG TAB PO SCH (05:42)
--- NOTE | 2018-10-20 08:01 | RAD ---
FRONTAL VIEW CHEST: COMPARISON: . INDICATION: CHF, nonproductive cough. FINDINGS: There is consolidation of the mid to lower right lung and the left lung base. This is superimposed u noah probable cardiogenic edema. Opacities have slightly progressed. IMPRESSION: Progressive bilateral pleural and parenchymal densities. Recommend continued followup. POS: WHITNEY
[2018-10-20] MEDS: pyridOXINE 50 MG (B6) TAB PO SCH (08:50)
[2018-10-20] MEDS: Magnesium Oxide 400 MG TAB PO SCH (08:50)
[2018-10-20] MEDS: Sacubitril 24.5 MG/Valsartan 25.5 MG TABLET PO SCH ×2 (08:50→21:15)
[2018-10-20] MEDS: Digoxin 0.125 MG TAB PO SCH (08:50)
[2018-10-20] MEDS: Finasteride 5 MG TAB PO SCH (08:51)
[2018-10-20] MEDS: Potassium Chloride 20 MEQ TAB PO SCH ×2 (08:51→18:14)
[2018-10-20] MEDS: Donepezil HCl 10 MG TAB PO SCH (08:51)
[2018-10-20] MEDS: Apixaban 2.5 MG TAB PO SCH ×2 (08:51→21:15)
[2018-10-20] MEDS: Furosemide 40 MG TAB PO SCH (08:51)
[2018-10-20] MEDS: Cyanocobalamin (Vitamin B-12) 1,000 MCG TAB PO SCH (08:51)
[2018-10-20] MEDS: Atorvastatin Calcium 20 MG TAB PO SCH (08:51)
[2018-10-20] MEDS ORDERED: Furosemide 40 MG/4 ML VIAL SLOW IVP SCH (09:15)
[2018-10-20] MEDS ORDERED: Amoxicillin/Potassium Clav 875 MG TAB PO SCH (12:30)
--- NOTE | 2018-10-20 12:51 | CON ---
DATE OF CONSULTATION: 10/18/2018 CONSULTING PHYSICIAN: Dr. Cisneros. REASON FOR CONSULTATION: Abnormal x-ray. TIME SPENT: 50 minutes time, of that time, greater than 50% spent with the patient and/or the patient's unit in the hospital. HISTORY OF PRESENT ILLNESS: The patient is an 82-year-old male who was hospitalized on 10/17/2018 with a chief complaint of increasing shortness of breath. He was found to be in congestive heart failure with a weight gain of 8 pounds over his baseline. He had a BNP over 1000. He was started on IV diuretics and is now feeling much better. There is some concern that his x-ray has not improved. He has had some cough and congestion. In reviewing his records, he has had problems with aspiration pneumonitis in the past. PAST MEDICAL HISTORY: 1. COPD. 2. Low EF with systolic cardiac dysfunction. 3. Peripheral vascular disease resulting in right below-knee amputation. 4. Hypertension. 5. Diabetes mellitus. 6. Atrial fibrillation. 7. Prostatic hypertrophy. 8. Dementia. 9. Bladder cancer. 10. Subdural hematoma. 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 12. Coronary artery disease. 13. Cataracts. 14. History of trach and PEG in the past. 15. Head injury. 16. Colonoscopy. FAMILY MEDICAL HISTORY: Unremarkable for lung disease. ALLERGIES: YARI INHIBITORS, ANGIOTENSIN II RECEPTOR ANTAGONIST, AND BETA BLOCKERS. CURRENT INPATIENT MEDICATIONS: 1. DuoNeb every 6 hours as needed. 2. Augmentin 875 mg every 12 hours-has not received first dose yet. 3. Eliquis 2.5 mg b.i.d. 4. Atorvastatin 20 mg daily. 5. Astelin nasal spray daily. 6. Vitamin B12 of 500 mcg daily. 7. Digoxin 0.125 mg daily. 8. Aricept 10 mg daily. 9. Proscar 5 mg daily. 10. Lasix 40 mg daily. 11. Mucinex 600 mg every 12 hours. 12. Levothyroxine 50 mcg daily. 13. Loratadine 10 mg daily. 14. Magnesium oxide 400 mg daily. 15. Potassium chloride 20 mEq b.i.d. 16. Pyredoxine 100 mg daily. 17. Entresto one tablet twice daily. Home medications reviewed, see chart. REVIEW OF SYSTEMS: Remarkable for poor memory, aspiration pneumonia. No fever, chills, nausea, vomiting, chest pain. He has had some diarrhea. No hemoptysis. No hematochezia. No hematuria. No dysuria. PHYSICAL EXAMINATION: VITAL SIGNS: Temperature 97.7, pulse 80, respirations 20, sat 95% on 3 L, and blood pressure 122/51. GENERAL: He is awake and alert, and in no respiratory distress. HEENT: Remarkable for bitemporal wasting. NECK: No adenopathy. No JVD. CARDIAC: S1, S2. Irregularly irregular without murmur. LUNGS: He has slightly diminished breath sounds in the right base compared to left. Some dullness to percussion right base. ABDOMEN: Soft, nontender, nondistended. EXTREMITIES: Right below-knee amputation. SKIN: Shows bruising throughout his arms. NEUROLOGIC: Grossly intact throughout otherwise. LABORATORY DATA: White blood cell count 7.6, hematocrit 47.5, and platelet count 221. Sodium 138, potassium 4.7, chloride 101, CO2 of 31, BUN 47, creatinine 0.8, and glucose 73. His BNP at the time of admission was 1031. IMAGING STUDIES: 1. Echocardiogram obtained during this hospitalization demonstrated EF of 15% to 20%. 2. Chest x-ray shows what appears to be small right pleural effusion versus infiltrative changes. ASSESSMENT: 1. Acute systolic heart failure. 2. Small pleural effusion/pulmonary edema, probably secondary to congestive heart failure. 3. I doubt this is an episode of aspiration. RECOMMENDATION: 1. Continue diuretics as you are. 2. It is perfectly reasonable to give him 5 to 7 days of Augmentin in case this was aspiration given his history. 3. Wean oxygen as tolerated. 4. Hopefully, home soon. Job ID: [id number]
--- NOTE | 2018-10-20 13:36 | PRG ---
DATE OF SERVICE: 10/20/2018 SUBJECTIVE: Mr. Owens is not short of breath. He just feels weak. No chest pain. OBJECTIVE: VITAL SIGNS: His blood pressure is 120/50, pulse 70. LUNGS: Clear anteriorly and laterally. CARDIAC: Normal S1, normal S2. No new murmur, rub, or gallop. Reviewing the notes, the ejection fraction on the echo was 15% to 20% with moderate to severe mitral regurgitation. Chest x-ray revealed pulmonary infiltrates. Dr. Murray has been consulted about the possibility this could be pneumonia as well. ASSESSMENT: 1. Congestive heart failure, systolic, acute on chronic, severe, but slowly improving. 2. History of hypotension, tolerating Entresto well. 3. Renal failure, improved with now creatinine 0.98, improved on Entresto. PLAN: 1. Start on oral torsemide. 2. Continue Entresto. 3. Dr. Murray is going to start some antibiotics. Dr. Neal will be available this weekend if needed. Ok for the pt to go to Medical. From a cardiac standpoint, he appears stable and has an implantable defibrillator. Job ID: [id number] MTDD
--- NOTE | 2018-10-20 13:58 | PDOC.PN ---
- Subjective Encounter Start Date: 10/20/18 Encounter Start Time: 08:00 Subjective: no sob, feels better -: at bedside - Objective Resuscitation Status - Order Detail: 10/17/18 20:12 Resuscitation Status Routine Resuscitation Status: FULL: Full Resuscitation MAR Reviewed: Yes Vital Signs & Weight: Vital Signs (12 hours) Temp Pulse Resp BP Pulse Ox 10/20/18 12:45 97.9 F 70 20 107/50 L 95 10/20/18 08:50 74 10/20/18 07:55 97.7 F 70 20 122/51 L 95 10/20/18 06:39 95 10/20/18 06:37 71 20 10/20/18 04:00 97.5 F L 69 20 115/54 L 93 L Weight Admit Weight 160 lb 8 oz Weight 159 lb 12.8 oz I&O: 10/19/18 10/20/18 10/21/18 06:59 06:59 06:59 Intake Total 494 1260 Balance 494 1260 Result Diagrams: 10/18/18 05:32 10/20/18 04:44 Additional Labs: Accuchecks 10/20/18 10/20/18 10/20/18 10:41 06:22 05:38 POC Glucose 135 H 82 55 L* 10/19/18 10/19/18 20:21 16:32 POC Glucose 171 H 158 H Phys Exam - Physical Examination HEENT: PERRLA, moist MMs Neck: no JVD, supple Respiratory: no wheezing, no rales Cardiovascular: RRR, no significant murmur Gastrointestinal: soft, non-tender, positive bowel sounds Musculoskeletal: no edema, pulses present Neurological: non-focal, moves all 4 limbs Psychiatric: normal affect, A&O x 3 Dx/Plan (1) Acute on chronic systolic (congestive) heart failure Code(s): I50.23 - ACUTE ON CHRONIC SYSTOLIC (CONGESTIVE) HEART FAILURE Status : Acute Comment: ef of 15% with mod mitral regurg and severe pulm htn (2) Hypothyroidism Code(s): E03.9 - HYPOTHYROIDISM, UNSPECIFIED Status: Chronic Qualifiers: Hypothyroidism type: unspecified Qualified Code(s): E03.9 - Hypothyroidism , unspecified (3) Atrial fibrillation Code(s): I48.91 - UNSPECIFIED ATRIAL FIBRILLATION Status: Chronic Comment: paroxysmal (4) Diabetes mellitus type 2 Code(s): E11.9 - TYPE 2 DIABETES MELLITUS WITHOUT COMPLICATIONS Status: Chronic (5) Dyslipidemia Code(s): E78.5 - HYPERLIPIDEMIA, UNSPECIFIED Status: Chronic (6) HYPERTENSION Status: Chronic (7) PAD (peripheral artery disease) Code(s): I73.9 - PERIPHERAL VASCULAR DISEASE, UNSPECIFIED Status: Chronic Comment: h/o R BKA (8) PNA (pneumonia) Code(s): J18.9 - PNEUMONIA, UNSPECIFIED ORGANISM Status: Acute Qualifiers: Pneumonia type: aspiration pneumonia Aspiration pneumonia type: due to regurgitated food Laterality: right - Plan suspected asp pna, start on augmentin -: d/w -: BP is holding up with entresto and oral lasix -: renal function is better, dc lantus due to low sugars -: on eliquis, lipitor, digoxin, aricept, proscar and synthroid * . Review of Systems - Medications/Allergies Allergies/Adverse Reactions: Allergies Allergy/AdvReac Type Severity Reaction Status Date / Time YARI Inhibitors Allergy Mild Verified 04/05/18 18:27 ARB-Angiotensin Receptor Allergy Mild Verified 04/05/18 18:28 Antagonist Beta-Blockers Allergy Mild Verified 04/05/18 18:28 (Beta-Adrenergic Bloc Medications: Current Medications Albuterol/Ipratropium (Duoneb) 3 ml NEB [id number] REPLACED BY [facility] Last Admin: 10/20/18 06:37 Dose: 3 ml Amoxicillin/Clavulanate Potassium (Augmentin) 875 mg PO Q12HR REPLACED BY [facility] Amoxicillin/Clavulanate Potassium (Augmentin) 875 mg PO NOW REPLACED BY [facility] Stop: 10/20/18 14:30 Last Admin: 10/20/18 13:10 Dose: 875 mg Apixaban (Eliquis) 2.5 mg PO BID REPLACED BY [facility] Last Admin: 10/20/18 08:51 Dose: 2.5 mg Atorvastatin Calcium (Lipitor) 20 mg PO DAILY REPLACED BY [facility] Last Admin: 10/20/18 08:51 Dose: 20 mg Azelastine HCl (Azelastine) 0 ml NS BIDPRN PRN PRN Reason: Allergies Cyanocobalamin (Vitamin B-12) 500 mcg PO DAILY REPLACED BY [facility] Last Admin: 10/20/18 08:51 Dose: 500 mcg Digoxin (Lanoxin) 0.125 mg PO DAILY REPLACED BY [facility] Last Admin: 10/20/18 08:50 Dose: 0.125 mg Donepezil HCl (Aricept) 10 mg PO DAILY REPLACED BY [facility] Last Admin: 10/20/18 08:51 Dose: 10 mg Finasteride (Proscar) 5 mg PO DAILY REPLACED BY [facility] Last Admin: 10/20/18 08:51 Dose: 5 mg Furosemide (Lasix) 40 mg PO DAILY-[facility] Last Admin: 10/20/18 08:51 Dose: 40 mg Guaifenesin (Mucinex) 600 mg PO Q12H PRN PRN Reason: Cough Last Admin: 10/19/18 20:41 Dose: 600 mg Levothyroxine Sodium (Synthroid) 50 mcg PO 0600 REPLACED BY [facility] Last Admin: 10/20/18 05:42 Dose: 50 mcg Loratadine (Claritin) 10 mg PO DAILYPRN PRN PRN Reason: Allergies Magnesium Oxide (Magnesium Oxide) 400 mg PO DAILY REPLACED BY [facility] Last Admin: 10/20/18 08:50 Dose: 400 mg Potassium Chloride (K-Dur) 20 meq PO BID-[facility] Last Admin: 10/20/18 08:51 Dose: 20 meq Pyridoxine HCl (Vitamin B 6) 100 mg PO DAILY REPLACED BY [facility] Last Admin: 10/20/18 08:50 Dose: 100 mg Sacubitril/Valsartan (Entresto 24.5 Mg-25.5 Mg Tablet) 1 tab PO BID REPLACED BY [facility] Last Admin: 10/20/18 08:50 Dose: 1 tab Sodium Chloride (Flush - Normal Saline) 10 ml IVF Q12HR REPLACED BY [facility] Last Admin: 10/20/18 08:52 Dose: 10 ml Sodium Chloride (Flush - Normal Saline) 10 ml IVF PRN PRN PRN Reason: Saline Flush Last Admin: 10/19/18 06:01 Dose: 10 ml Torsemide (Demadex) 40 mg PO BID@0900,1400 REPLACED BY [facility]
[2018-10-20] MEDS: Amoxicillin/Potassium Clav 875 MG TAB PO SCH (21:15)
[2018-10-21] MEDS ORDERED: diphenhydrAMINE 25 MG CAP PO PRN (00:37)
--- NOTE | 2018-10-21 00:43 | PDOC.EVN ---
Event Note - Event Note Event Note: I was called to the floor by nursing staff with concern patient developed redness and swelling to his tongue. On presentation patient tongue appears red in color with mild swelling, airway noncompromised. Patient appeared in no distress, vitals stable. He denies any chest pain, shortness of breath or feeling of his throat closing up. Concern for possible angioedema from Entresto , therefore stopped medication and put order for 50mg benadryl. Will check CRP and ESR and monitor patient closely over night. Will defer to morning team on further management.
[2018-10-21] MEDS ORDERED: diphenhydrAMINE 50 MG/ML VIAL IVP SCH (00:45)
--- NOTE | 2018-10-21 02:01 | CON ---
DATE OF CONSULTATION: 10/20/2018 REASON FOR CONSULTATION: Acute diarrhea. CONSULTING PHYSICIAN: Corie Cisneros M.D. HISTORY OF PRESENT ILLNESS: The patient is an 82-year-old male with past medical history of congestive heart failure, bladder cancer, coronary artery disease and hyperlipidemia, who initially was admitted to the hospital with worsening symptoms of shortness of breath for the last few days. This was also associated with an 8 pound weight gain in recent history and was ultimately treated for an acute exacerbation of his congestive heart failure. However, per nursing staff, he was noted to have significant diarrhea type bowel movements that have been present during this admission, having approximately 8-9 episodes of small semi-solid to liquid bowel movements per day. Per conversation with the patient's , his normal stooling habit includes approximately 2-3 semi-solid bowel movements per day with no difficulty with defecation. However, during this admission, this has increased in terms of frequency and had resulted in increased maceration of the skin in the gluteal cleft, buttock area and is possibly creating ulceration. The patient himself is unable to contribute to the conversation today due to increasing dementia, but currently denies any nausea, vomiting, fevers, chills, abdominal pain, GI bleeding, dysphagia, or odynophagia. REVIEW OF SYSTEMS: A complete review of systems could not be obtained from the patient due his advanced dementia with most information obtained from the patient's at bedside. PAST MEDICAL HISTORY: As per HPI. PAST SURGICAL HISTORY: 1. Cataract repair. 2. Right below-knee amputation. 3. Pacemaker/defibrillator placement. FAMILY HISTORY: Denies any GI malignancies. SOCIAL HISTORY: Denies any tobacco or illicit drug use, but was drinking alcohol as an outpatient. OUTPATIENT MEDICATIONS: Reviewed. ALLERGIES: 1. YARI INHIBITORS. 2. ANGIOTENSIN RECEPTOR BLOCKERS. 3. BETA BLOCKERS. PHYSICAL EXAMINATION: VITAL SIGNS: Temperature 97.7, pulse 72, blood pressure 117/54, respiratory rate 22, saturating 94% on 3 L nasal cannula. GENERAL: The patient was lying in bed, in no acute distress. Alert and oriented x1. NECK: Supple. No scleral icterus noted. CARDIOVASCULAR: Regular rate and rhythm with no discernible murmurs, gallops, or rubs. RESPIRATORY: Clear to auscultation bilaterally with no discernible wheezes or rales. ABDOMEN: Normoactive bowel sounds. Soft, nontender, nondistended. EXTREMITIES: No cyanosis, clubbing, or edema. LABORATORY DATA: Chemistry with a sodium of 138, potassium 4.7, chloride 101, CO2 31, BUN 47, creatinine 0.98, glucose 41. Infectious Disease stool studies for Clostridium difficile were negative. IMAGING DATA: No current GI imaging is available for review. ASSESSMENT AND PLAN: The patient is an 82-year-old male with past medical history of congestive heart failure, bladder cancer, coronary artery disease, hyperlipidemia, and advanced dementia, presenting with acute onset of worsening diarrhea. Diarrhea. Per the patient's 's, he was having approximately 2-3 semi-solid movements per day with intermittent episodes of 4 loose stools as an outpatient. However, per nursing staff, and per patient's , he has had an acute worsening in terms of frequency of his bowel movements, having approximately 8-9 semi-solid liquid bowel movements per day associated with what appears to be possible fecal incontinence resulting in skin maceration of the gluteal cleft and orifice itself and the surrounding skin. Infectious workup thus far has been negative, but has not been broadened to include other etiologies including E. coli, Campylobacter, Salmonella or Shigella. Given his multiple antibiotic use in the past, C. diff would have been a likely etiology, but it is currently negative, so treatment is not indicated at this time. Per the patient's , he does have some intake in fiber, but may also be inadequate in terms of a stool bulking technique and may benefit from a higher fiber diet. Also during this hospitalization with sudden worsening of his diarrhea, it could also be medication induced with medications including the magnesium oxide supplements, digoxin and sacubitril/valsartan being likely candidates to cause diarrhea. Given the chronicity of the digoxin use, this is an unlikely candidate. RECOMMENDATIONS: 1. We would broaden infectious stool workup to include culture for E. coli, Campylobacter; Salmonella and Shigella. 2. We would stop the magnesium oxide supplementation given the propensity to cause diarrhea. 3. We would monitor the patient closely with administration of Augmentin, which the patient was just recently prescribed as one of its potential side effects is diarrhea. 4. We will start the patient on Citrucel daily as part of a stool bulking technique. 5. We will continue to follow and monitor for progress. 6. Please call with any additional questions. Job ID: [id number]
[2018-10-21] MEDS: Levothyroxine Sodium 50 MCG TAB PO SCH (05:32)
[2018-10-21] MEDS: Digoxin 0.125 MG TAB PO SCH (09:40)
[2018-10-21] MEDS: Cyanocobalamin (Vitamin B-12) 1,000 MCG TAB PO SCH (09:41)
[2018-10-21] MEDS: Furosemide 40 MG TAB PO SCH (09:41)
[2018-10-21] MEDS: Apixaban 2.5 MG TAB PO SCH ×2 (09:41→20:14)
[2018-10-21] MEDS: pyridOXINE 50 MG (B6) TAB PO SCH (09:41)
[2018-10-21] MEDS: Atorvastatin Calcium 20 MG TAB PO SCH (09:41)
[2018-10-21] MEDS: Amoxicillin/Potassium Clav 875 MG TAB PO SCH ×2 (09:41→20:14)
[2018-10-21] MEDS: Finasteride 5 MG TAB PO SCH (09:41)
[2018-10-21] MEDS: Potassium Chloride 20 MEQ TAB PO SCH ×2 (09:42→16:21)
[2018-10-21] MEDS: Donepezil HCl 10 MG TAB PO SCH (09:43)
--- NOTE | 2018-10-21 11:19 | PRG ---
DATE OF SERVICE: 10/21/2018 SUBJECTIVE: The patient is doing better today. No complaints. PHYSICAL EXAMINATION: VITAL SIGNS: Temperature 97.8, pulse 70, respirations 21, O2 saturation 94% on 3 L. HEENT: Unremarkable. NECK: No JVD. LUNGS: Fairly clear. CARDIAC: S1, S2. Regular. ABDOMEN: Soft. EXTREMITIES: No edema. ASSESSMENT: 1. Stable pulmonary status. 2. Acute systolic heart failure. 3. Small pleural effusion. 4. Doubt he is having aspiration at this time. PLAN: 1. Continue diuretics. 2. Continue the Augmentin-would not treat him beyond 5 days. No further recommendations at this time. Job ID: [id number]
[2018-10-21] MEDS: Torsemide 20 MG TAB PO SCH ×2 (11:48→16:20)
[2018-10-21] MEDS: Citrucel 500 MG TAB PO SCH (11:48)
--- NOTE | 2018-10-21 13:39 | PDOC.PN ---
- Subjective Encounter Start Date: 10/21/18 Encounter Start Time: 11:20 Subjective: had tongue swelling and trouble sleeping last night -: no diarrhea from last night -: says he has taken augmentin before multiple times - Objective Resuscitation Status - Order Detail: 10/17/18 20:12 Resuscitation Status Routine Resuscitation Status: FULL: Full Resuscitation MAR Reviewed: Yes Vital Signs & Weight: Vital Signs (12 hours) Temp Pulse Resp BP Pulse Ox 10/21/18 12:56 76 19 10/21/18 09:40 70 10/21/18 08:00 94 L 10/21/18 07:56 72 21 H 10/21/18 07:33 97.8 F 70 18 100/56 L 94 L Weight Admit Weight 160 lb 8 oz Weight 159 lb 12.8 oz I&O: 10/20/18 10/21/18 10/22/18 06:59 06:59 06:59 Intake Total 1260 180 Balance 1260 180 Result Diagrams: 10/18/18 05:32 10/20/18 04:44 Additional Labs: Accuchecks 10/21/18 10/21/18 10/20/18 11:34 05:43 21:50 POC Glucose 129 H 95 151 H Phys Exam - Physical Examination HEENT: PERRLA, moist MMs mild edema of tongue, no lip or cheek swelling now Neck: no JVD, supple Respiratory: no wheezing, no rales Cardiovascular: RRR, no significant murmur Gastrointestinal: soft, non-tender, positive bowel sounds Musculoskeletal: no edema, pulses present Neurological: non-focal, moves all 4 limbs Psychiatric: normal affect, A&O x 3 Dx/Plan (1) Acute on chronic systolic (congestive) heart failure Code(s): I50.23 - ACUTE ON CHRONIC SYSTOLIC (CONGESTIVE) HEART FAILURE Status : Acute Comment: ef of 15% with mod mitral regurg and severe pulm htn (2) Hypothyroidism Code(s): E03.9 - HYPOTHYROIDISM, UNSPECIFIED Status: Chronic Qualifiers: Hypothyroidism type: unspecified Qualified Code(s): E03.9 - Hypothyroidism , unspecified (3) Atrial fibrillation Code(s): I48.91 - UNSPECIFIED ATRIAL FIBRILLATION Status: Chronic Comment: paroxysmal (4) Diabetes mellitus type 2 Code(s): E11.9 - TYPE 2 DIABETES MELLITUS WITHOUT COMPLICATIONS Status: Chronic (5) Dyslipidemia Code(s): E78.5 - HYPERLIPIDEMIA, UNSPECIFIED Status: Chronic (6) HYPERTENSION Status: Chronic (7) PAD (peripheral artery disease) Code(s): I73.9 - PERIPHERAL VASCULAR DISEASE, UNSPECIFIED Status: Chronic Comment: h/o R BKA (8) PNA (pneumonia) Code(s): J18.9 - PNEUMONIA, UNSPECIFIED ORGANISM Status: Acute Qualifiers: Pneumonia type: aspiration pneumonia Aspiration pneumonia type: due to regurgitated food Laterality: right - Plan is on augmentin, nebs prn -: off entresto, gets hypotensive with BB -: continue eliquis, lipitor, digoxin, lasix, proscar and demadex -: citrucel for diarrhea, off mgo * . Review of Systems - Medications/Allergies Allergies/Adverse Reactions: Allergies Allergy/AdvReac Type Severity Reaction Status Date / Time YARI Inhibitors Allergy Mild Verified 04/05/18 18:27 ARB-Angiotensin Receptor Allergy Mild Verified 04/05/18 18:28 Antagonist Beta-Blockers Allergy Mild Verified 04/05/18 18:28 (Beta-Adrenergic Bloc Medications: Current Medications Albuterol/Ipratropium (Duoneb) 3 ml NEB [id number] [facility] Last Admin: 10/21/18 12:56 Dose: 3 ml Amoxicillin/Clavulanate Potassium (Augmentin) 875 mg PO Q12HR [facility] Last Admin: 10/21/18 09:41 Dose: 875 mg Apixaban (Eliquis) 2.5 mg PO BID [facility] Last Admin: 10/21/18 09:41 Dose: 2.5 mg Atorvastatin Calcium (Lipitor) 20 mg PO DAILY [facility] Last Admin: 10/21/18 09:41 Dose: 20 mg Azelastine HCl (Azelastine) 0 ml NS BIDPRN PRN PRN Reason: Allergies Cyanocobalamin (Vitamin B-12) 500 mcg PO DAILY [facility] Last Admin: 10/21/18 09:41 Dose: 500 mcg Digoxin (Lanoxin) 0.125 mg PO DAILY [facility] Last Admin: 10/21/18 09:40 Dose: 0.125 mg Diphenhydramine HCl (Benadryl) 25 mg PO Q4H PRN PRN Reason: Itching Donepezil HCl (Aricept) 10 mg PO DAILY [facility] Last Admin: 10/21/18 09:43 Dose: 10 mg Finasteride (Proscar) 5 mg PO DAILY [facility] Last Admin: 10/21/18 09:41 Dose: 5 mg Furosemide (Lasix) 40 mg PO DAILY-[facility] Last Admin: 10/21/18 09:41 Dose: 40 mg Guaifenesin (Mucinex) 600 mg PO Q12H PRN PRN Reason: Cough Last Admin: 10/19/18 20:41 Dose: 600 mg Levothyroxine Sodium (Synthroid) 50 mcg PO 0600 [facility] Last Admin: 10/21/18 05:32 Dose: 50 mcg Loratadine (Claritin) 10 mg PO DAILYPRN PRN PRN Reason: Allergies Methylcellulose (Citrucel) 500 mg PO DAILY [facility] Last Admin: 10/21/18 11:48 Dose: 500 mg Potassium Chloride (K-Dur) 20 meq PO BID-[facility] Last Admin: 10/21/18 09:42 Dose: 20 meq Pyridoxine HCl (Vitamin B 6) 100 mg PO DAILY [facility] Last Admin: 10/21/18 09:41 Dose: 100 mg Sodium Chloride (Flush - Normal Saline) 10 ml IVF Q12HR [facility] Last Admin: 10/21/18 09:53 Dose: 10 ml Sodium Chloride (Flush - Normal Saline) 10 ml IVF PRN PRN PRN Reason: Saline Flush Last Admin: 10/19/18 06:01 Dose: 10 ml Torsemide (Demadex) 40 mg PO BID@0900,1400 [facility] Last Admin: 10/21/18 11:48 Dose: 40 mg
--- NOTE | 2018-10-21 20:09 | PRG ---
DATE OF SERVICE: 10/21/2018 REASON FOR CONSULTATION: Acute diarrhea. SUBJECTIVE: Overnight, the patient experienced increased tongue swelling and erythema of the tongue as well concerning for a possible angioedema process. The origin of this was felt to be Entresto, which was then discontinued and he was giving Benadryl to combat an allergic reaction. Today, he states that his tongue is doing much better and at no point did he exhibit any increased shortness of breath or difficulty breathing. Also within the last 24 hours, he says that his diarrhea has improved significantly and has had approximately 2 to 3 semi-solid bowel movements within the last 24 hours per the patient's and the nursing staff. Currently, he denies any nausea, vomiting, fevers, chills, abdominal pain, GI bleeding, dysphagia, odynophagia, or constipation. OBJECTIVE: VITAL SIGNS: Temperature 97.8, pulse 74, blood pressure 100/56, respiratory rate 16, and saturating 94% on 2.5 L nasal cannula. GENERAL: The patient was lying in bed, in no acute distress. Alert and oriented x1. CARDIOVASCULAR: Regular rate and rhythm. RESPIRATORY: Clear to auscultation bilaterally. ABDOMEN: Normoactive bowel sounds. Soft, nontender, and nondistended. EXTREMITIES: No cyanosis, clubbing, or edema. LABORATORY DATA: Serology showed an ESR of 17. Infectious stool studies were negative for both Campylobacter and E. coli. IMAGING DATA: No current GI imaging is available for review. ASSESSMENT AND PLAN: The patient is an 82-year-old male with past medical history of congestive heart failure, bladder cancer, coronary artery disease, hyperlipidemia, and advanced dementia, presenting with acute onset of worsening diarrhea. Diarrhea. Prior to admission, the patient was having approximately 2 to 3 semi-solid bowel movements per day with intermittent loose stools as an outpatient. However, during this admission, he had worsening of his diarrhea to include approximately 8 to 9 semi-solid and liquid bowel movements per day that was associated with medical therapies during this admission. However, over the last 24 hours with the discontinuation of magnesium supplementation and Entresto as well as with the addition of Citrucel as part of a stool bulking technique, he has had significant improvement in the number of bowel movements, again having approximately 2 to 3 semi-solid bowel movements over the last 24 hours (similar when compared to baseline). Infectious stool workup thus far has been negative for Campylobacter, E. coli, and Clostridium difficile. At this point in time, the more likely reason for his worsening diarrhea would be medication induced. RECOMMENDATIONS: 1. We would continue to hold magnesium oxide supplementation given its propensity to cause diarrhea. 2. Monitor the patient closely while taking Augmentin, which could potentially cause diarrhea. 3. Continue daily administration of Citrucel as part of a stool bulking technique. We will continue to follow. Please call with any questions. Job ID: [id number]
--- NOTE | 2018-10-21 20:32 | EKG ---
Test Reason : COUGH Blood Pressure : / mmHG Vent. Rate : 070 BPM Atrial Rate : 071 BPM P-R Int : 000 ms QRS Dur : 192 ms QT Int : 476 ms P-R-T Axes : 000 -08 051 degrees QTc Int : 514 ms Electronic ventricular pacemaker Confirmed by ROD DUCKWORTH ([id number]), photograph editor MARCK ALMANZA ([id number]) on 10/21/2018 8:31:26 PM Referred By: CLAUDE Confirmed By:ROD DUCKWORTH
[2018-10-22] MEDS: Levothyroxine Sodium 50 MCG TAB PO SCH (05:20)
[2018-10-22] MEDS: pyridOXINE 50 MG (B6) TAB PO SCH (08:23)
[2018-10-22] MEDS: Apixaban 2.5 MG TAB PO SCH ×2 (08:23→19:57)
[2018-10-22] MEDS: Atorvastatin Calcium 20 MG TAB PO SCH (08:23)
[2018-10-22] MEDS: Finasteride 5 MG TAB PO SCH (08:23)
[2018-10-22] MEDS: Digoxin 0.125 MG TAB PO SCH (08:23)
[2018-10-22] MEDS: Cyanocobalamin (Vitamin B-12) 1,000 MCG TAB PO SCH (08:24)
[2018-10-22] MEDS: Amoxicillin/Potassium Clav 875 MG TAB PO SCH ×2 (08:24→19:57)
[2018-10-22] MEDS: Donepezil HCl 10 MG TAB PO SCH (08:24)
[2018-10-22] MEDS: Citrucel 500 MG TAB PO SCH (08:24)
[2018-10-22] MEDS: Potassium Chloride 20 MEQ TAB PO SCH (08:24)
[2018-10-22] MEDS: Torsemide 20 MG TAB PO SCH ×2 (08:24→15:56)
[2018-10-22 09:05] LABS: #Eosinphils 0.7 thou/uL (0.0-0.7); #Lymphocytes 0.7 thou/uL (1.20-3.40); #Monocytes 0.6 thou/uL (0.11-0.59); #Neutrophils 4.9 thou/uL (1.40-6.50); %Basophils 0.2 % (0.0-1.0); %Eosinophils 10.7 % (0.0-10.0); %Lymphocytes 10.2 % (21.0-51.0); %Neutrophils 69.9 % (42.0-75.0); Hemoglobin 13.3 g/dL (14.0-18.0); Mean Corpuscular HGB CONC 30.6 g/dL (32.0-36.0); Mean Corpuscular Hemoglobin 30.3 pg (27.0-31.0); Mean Corpuscular Volume 99.2 fL (78.0-98.0); Mean Platelet Volume 9.2 fL (7.4-10.4); Platelet Count 174 thou/uL (130-400); RBC Distribution Width 16.2 % (11.5-14.5); Red Blood Cell (RBC) Count 4.37 mill/uL (4.70-6.10)
[2018-10-22 09:22] LABS: Anion Gap 11 mmol/L (10-20); BUN (Urea Nitrogen) 37 mg/dL (8.4-25.7); Calc. Creatinine Clearance 68 mL/min (70-130); Calcium 8.4 mg/dL (7.8-10.44); Carbon Dioxide 33 mmol/L (23-31); Chloride 100 mmol/L (98-107); Estimated GFR-MDRD 87; Glucose 102 mg/dL (83-110); Potassium 4.3 mmol/L (3.5-5.1); Sodium 140 mmol/L (136-145)
--- NOTE | 2018-10-22 10:37 | PDOC.PN ---
- Subjective Encounter Start Date: 10/22/18 Encounter Start Time: 08:25 Subjective: coughing spells in am, feels ok now -: son at bedside -: no sob or chest pain or palp - Objective Resuscitation Status - Order Detail: 10/17/18 20:12 Resuscitation Status Routine Resuscitation Status: FULL: Full Resuscitation MAR Reviewed: Yes Vital Signs & Weight: Vital Signs (12 hours) Temp Pulse Resp BP Pulse Ox 10/22/18 08:23 69 10/22/18 07:27 97.5 F L 69 16 106/62 97 10/22/18 07:03 75 20 96 10/22/18 02:08 92 L 10/22/18 01:07 16 96 Weight Admit Weight 160 lb 8 oz Weight 159 lb 12.8 oz I&O: 10/21/18 10/22/18 10/23/18 06:59 06:59 06:59 Intake Total 180 85 Balance 180 85 Result Diagrams: 10/22/18 08:44 10/22/18 08:44 Additional Labs: Accuchecks 10/21/18 10/21/18 10/21/18 20:13 16:38 11:34 POC Glucose 143 H 216 H 129 H Phys Exam - Physical Examination HEENT: PERRLA, moist MMs Neck: no JVD, supple Respiratory: no wheezing, no rales Cardiovascular: RRR, no significant murmur Gastrointestinal: soft, non-tender, positive bowel sounds Musculoskeletal: no edema, pulses present left UE edema around elbow and forearm Neurological: non-focal, moves all 4 limbs Psychiatric: normal affect, A&O x 3 Dx/Plan (1) Acute on chronic systolic (congestive) heart failure Code(s): I50.23 - ACUTE ON CHRONIC SYSTOLIC (CONGESTIVE) HEART FAILURE Status : Acute Comment: ef of 15% with mod mitral regurg and severe pulm htn (2) Hypothyroidism Code(s): E03.9 - HYPOTHYROIDISM, UNSPECIFIED Status: Chronic Qualifiers: Hypothyroidism type: unspecified Qualified Code(s): E03.9 - Hypothyroidism , unspecified (3) Atrial fibrillation Code(s): I48.91 - UNSPECIFIED ATRIAL FIBRILLATION Status: Chronic Comment: paroxysmal (4) Diabetes mellitus type 2 Code(s): E11.9 - TYPE 2 DIABETES MELLITUS WITHOUT COMPLICATIONS Status: Chronic (5) Dyslipidemia Code(s): E78.5 - HYPERLIPIDEMIA, UNSPECIFIED Status: Chronic (6) HYPERTENSION Status: Chronic (7) PAD (peripheral artery disease) Code(s): I73.9 - PERIPHERAL VASCULAR DISEASE, UNSPECIFIED Status: Chronic Comment: h/o R BKA (8) PNA (pneumonia) Code(s): J18.9 - PNEUMONIA, UNSPECIFIED ORGANISM Status: Acute Qualifiers: Pneumonia type: aspiration pneumonia Aspiration pneumonia type: due to regurgitated food Laterality: right - Plan tongue is back to normal, will add multivitamin -: continue augmentin, nebs prn -: on eliquis, digoxin, lipitor, demadex bid -: electrolytes are stable -: is off entresto, no BB due to hypotension * . Review of Systems - Medications/Allergies Allergies/Adverse Reactions: Allergies Allergy/AdvReac Type Severity Reaction Status Date / Time YARI Inhibitors Allergy Mild Verified 04/05/18 18:27 ARB-Angiotensin Receptor Allergy Mild Verified 04/05/18 18:28 Antagonist Beta-Blockers Allergy Mild Verified 04/05/18 18:28 (Beta-Adrenergic Bloc Medications: Current Medications Albuterol/Ipratropium (Duoneb) 3 ml NEB [id number] [facility] Last Admin: 10/22/18 07:03 Dose: 3 ml Amoxicillin/Clavulanate Potassium (Augmentin) 875 mg PO Q12HR [facility] Last Admin: 10/22/18 08:24 Dose: 875 mg Apixaban (Eliquis) 2.5 mg PO BID [facility] Last Admin: 10/22/18 08:23 Dose: 2.5 mg Atorvastatin Calcium (Lipitor) 20 mg PO DAILY [facility] Last Admin: 10/22/18 08:23 Dose: 20 mg Azelastine HCl (Azelastine) 0 ml NS BIDPRN PRN PRN Reason: Allergies Cyanocobalamin (Vitamin B-12) 500 mcg PO DAILY [facility] Last Admin: 10/22/18 08:24 Dose: 500 mcg Digoxin (Lanoxin) 0.125 mg PO DAILY [facility] Last Admin: 10/22/18 08:23 Dose: 0.125 mg Diphenhydramine HCl (Benadryl) 25 mg PO Q4H PRN PRN Reason: Itching Donepezil HCl (Aricept) 10 mg PO DAILY [facility] Last Admin: 10/22/18 08:24 Dose: 10 mg Finasteride (Proscar) 5 mg PO DAILY [facility] Last Admin: 10/22/18 08:23 Dose: 5 mg Guaifenesin (Mucinex) 600 mg PO Q12H PRN PRN Reason: Cough Last Admin: 10/19/18 20:41 Dose: 600 mg Levothyroxine Sodium (Synthroid) 50 mcg PO 0600 [facility] Last Admin: 10/22/18 05:20 Dose: 50 mcg Loratadine (Claritin) 10 mg PO DAILYPRN PRN PRN Reason: Allergies Methylcellulose (Citrucel) 500 mg PO DAILY [facility] Last Admin: 10/22/18 08:24 Dose: 500 mg Potassium Chloride (K-Dur) 20 meq PO QA-[facility] Pyridoxine HCl (Vitamin B 6) 100 mg PO DAILY [facility] Last Admin: 10/22/18 08:23 Dose: 100 mg Sodium Chloride (Flush - Normal Saline) 10 ml IVF Q12HR [facility] Last Admin: 10/21/18 20:14 Dose: 10 ml Sodium Chloride (Flush - Normal Saline) 10 ml IVF PRN PRN PRN Reason: Saline Flush Last Admin: 10/19/18 06:01 Dose: 10 ml Torsemide (Demadex) 40 mg PO BID@0900,1400 [facility] Last Admin: 10/22/18 08:24 Dose: 40 mg
--- NOTE | 2018-10-22 11:15 | PRG ---
DATE OF SERVICE: 10/22/2018 SUBJECTIVE: Mr. Owens is too sleepy according to his . She is suspicious that he is getting some type of medication that he should not be. I reviewed the medication list in the MAR and I do not see any specific medication that could be leading to altered mental status. OBJECTIVE: VITAL SIGNS: On exam, his temperature is 97.5, pulse 69, respirations 16, O2 saturation 97%, blood pressure 106/62. HEENT: Unremarkable. NECK: No JVD. CHEST: Fairly clear. CARDIAC: S1, S2, regular. ABDOMEN: Soft. EXTREMITIES: No edema. LABORATORY DATA: White cell count 7, hematocrit 43.4, and platelet count 174. Sodium 140, potassium 4.3, BUN 37, creatinine 0.8, glucose 102. ASSESSMENT: 1. Stable pulmonary status. 2. Acute systolic heart failure. 3. Small pleural effusion. 4. Question of aspiration. PLAN: The patient is continuing Augmentin. He is continuing diuretics. I do not see a reasonable explanation for his sleepiness other than he may be developing sundowners-type phenomenon in the hospital. Job ID: [id number]
--- NOTE | 2018-10-22 15:55 | PRG ---
DATE OF SERVICE: 10/22/2018 REASON FOR CONSULTATION: Acute diarrhea. SUBJECTIVE: The patient did not experience any acute events or problems overnight per nursing staff. He has had approximately 2 to 3 semi-solid bowel movements over the last 24 hours, which is what his describes as his baseline at home. Currently, denies any nausea, vomiting, fevers, chills, abdominal pain, GI bleeding, dysphagia, odynophagia, or constipation. OBJECTIVE: VITAL SIGNS: Temperature 98.4, pulse 70, blood pressure 116/75, respiratory rate 16 saturating 97% on room air. GENERAL: The patient was sitting at bedside, in no acute distress. Alert and oriented x1. CARDIOVASCULAR: Regular rate and rhythm. RESPIRATORY: Clear to auscultation bilaterally. ABDOMEN: Normoactive bowel sounds. Soft, nontender, and nondistended. EXTREMITIES: No cyanosis, clubbing, or edema. LABORATORY DATA: CBC with a white blood cell count of 7, hemoglobin 13.3, hematocrit 43.4, and platelets 174. IMAGING DATA: No current GI imaging is available for review. ASSESSMENT AND PLAN: The patient is an 82-year-old male with past medical history of congestive heart failure, bladder cancer, coronary artery disease, hyperlipidemia, and advanced dementia presenting with acute onset of diarrhea now for now resolving. Prior to admission, the patient was having a baseline of approximately 2 to 3 semi-solid bowel movements per day with no difficulty with defecation however during this admission he had worsening of his diarrhea in terms of frequency, having approximately 8 to 9 semi-solid liquid bowel movements per day; however, with discontinuation of magnesium oxide supplementation, Entresto and the addition of Citrucel as part of a stool bulking technique. He has now had return of his baseline stool frequency and consistency. Infectious workup thus far has been negative for Escherichia coli, Campylobacter, Clostridium difficile, and stool culture has been relatively normal. RECOMMENDATIONS: 1. Would continue to hold magnesium oxide supplementation given its propensity to cause diarrhea. 2. Would monitor the patient closely while taken Augmentin which could potentially cause increased diarrhea. 3. Continue daily administration of Citrucel as part of a stool bulking technique. We will sign off at this time. Please call with any additional questions. Job ID: [id number]
[2018-10-23] MEDS: Levothyroxine Sodium 50 MCG TAB PO SCH (05:45)
[2018-10-23] MEDS: Apixaban 2.5 MG TAB PO SCH ×2 (09:24→20:26)
[2018-10-23] MEDS: Potassium Chloride 20 MEQ TAB PO SCH (09:24)
[2018-10-23] MEDS: Atorvastatin Calcium 20 MG TAB PO SCH (09:24)
[2018-10-23] MEDS: Cyanocobalamin (Vitamin B-12) 1,000 MCG TAB PO SCH (09:25)
[2018-10-23] MEDS: Citrucel 500 MG TAB PO SCH (09:25)
[2018-10-23] MEDS: Donepezil HCl 10 MG TAB PO SCH (09:26)
[2018-10-23] MEDS: pyridOXINE 50 MG (B6) TAB PO SCH (09:26)
[2018-10-23] MEDS: Digoxin 0.125 MG TAB PO SCH (09:26)
[2018-10-23] MEDS: Finasteride 5 MG TAB PO SCH (09:26)
[2018-10-23] MEDS: Torsemide 20 MG TAB PO SCH ×2 (09:27→13:08)
--- NOTE | 2018-10-23 09:39 | PRG ---
DATE OF SERVICE: SUBJECTIVE: Mr. Owens is having coughing and more difficulty breathing. He is scheduled for a CT scan of his neck. The patient developed a swollen tongue over the weekend and had to be taken off the angiotensin receptor jian, which he was on at a low dose in the form of Entresto. OBJECTIVE: VITAL SIGNS: Blood pressure 99/55, pulse 68. LUNGS: Clear. CARDIAC: Normal S1, normal S2. ABDOMEN: Soft and nontender. EXTREMITIES: There is no edema. ASSESSMENT: 1. Congestive heart failure, systolic, acute on chronic advancements and very low ejection fraction. 2. [id number] mitral regurgitation. 3. Swollen tongue, possibly related to Entresto, cannot tolerate beta blockers due to hypotension. Therefore, also cannot take angiotensin receptor jian or YARI inhibitors. Plan is set for CT scan. 4. Prognosis, very poor, being unable to tolerate all these medicines. We will continue to follow with you. Looks like the only therapy would be diuretics. Job ID: [id number]
[2018-10-23] MEDS ORDERED: ISOVUE-370 76%-LOCM 1 ML ONE (10:41)
--- NOTE | 2018-10-23 11:22 | CT ---
CT NECK WITH CONTRAST: HISTORY: Muffled voice. Swelling. COMPARISON: None. FINDINGS: The globes are normal. The soft palate appears normal. The uvula appears normal. The epiglottis is not thickened. Normal appearance of the aryepiglottic folds. The glottis is normal. No abnormal mucosal-based enhancing mass is appreciated. There is no cervical adenopathy. The base of the tongue appears normal. The globes are normal. The mandible is intact. There is degenerative fusion of the left C3-C5 posterior elements and right C3-C5 posterior elements. There is ankylosis of the C6 and C7 vertebral bodies. Large anterior filling osteophytes. There appears to be fluid capping both lung apices, larger on the right, and some fibrosis in the per ipheral aspects of the lungs. Per NASCET criteria, there is approximately 70% narrowing of the proximal left internal carotid arter y, for a length of 5 mm, due to a mixture of calcific and soft plaque. The right internal carotid ar anette is patent. IMPRESSION: 1. No abnormal mucosal enhancing mass. 2. No cervical adenopathy. 3. No evidence of acute infectious process of the larynx. 4. Large right and moderate to large left pleural effusions with apical capping. 5. Pulmonary fibrosis. 6. Advanced degenerative changes of the cervical spine with multilevel degenerative ankylosis. 7. Per NASCET criteria, approximately 70% narrowing of the proximal left internal carotid artery, ne ar the carotid bulb, due to a mixture of calcific and soft plaque. POS: [facility]
--- NOTE | 2018-10-23 11:30 | RAD ---
PORTABLE CHEST: DATE: 10/23/2018. PROVIDED CLINICAL HISTORY: Shortness of breath. FINDINGS: Comparison 10/20/2017. Cardiac silhouette remains enlarged. Vascular calcification and left subclavi an cardiac pacing device are redemonstrated. Persistent bibasilar, right greater than left, pleural parenchymal opacity. Prominence of the pulmonary vasculature persists. No evidence for pneumothorax . IMPRESSION: Stable radiographic appearance of the chest. POS: [facility]
[2018-10-23] MEDS ORDERED: Furosemide 40 MG/4 ML VIAL SLOW IVP SCH (13:30)
--- NOTE | 2018-10-23 13:34 | PDOC.PN ---
- Subjective Encounter Start Date: 10/23/18 Encounter Start Time: 11:00 Subjective: at bedside says his voice is muffled with tongue swelling -: no sob, has cough -: no trouble breathing - Objective Resuscitation Status - Order Detail: 10/17/18 20:12 Resuscitation Status Routine Resuscitation Status: FULL: Full Resuscitation MAR Reviewed: Yes Vital Signs & Weight: Vital Signs (12 hours) Temp Pulse Resp BP BP Pulse Ox 10/23/18 13:22 74 97 10/23/18 13:10 94/54 L 10/23/18 08:48 97 10/23/18 08:00 94 L 10/23/18 07:16 97.7 F 68 20 99/55 L 94 L 10/23/18 06:47 75 18 98 Weight Admit Weight 160 lb 8 oz Weight 159 lb 12.8 oz I&O: 10/22/18 10/23/18 10/24/18 06:59 06:59 06:59 Intake Total 85 110 Balance 85 110 Result Diagrams: 10/22/18 08:44 10/22/18 08:44 Additional Labs: Accuchecks 10/23/18 10/22/18 10/22/18 04:23 19:42 16:39 POC Glucose 156 H 163 H 157 H 10/22/18 04:58 POC Glucose 113 H Phys Exam - Physical Examination HEENT: PERRLA, moist MMs Neck: no JVD, supple Respiratory: no wheezing, no rales Cardiovascular: RRR, no significant murmur Gastrointestinal: soft, non-tender, positive bowel sounds Musculoskeletal: no edema, pulses present Neurological: non-focal, moves all 4 limbs Dx/Plan (1) Acute on chronic systolic (congestive) heart failure Code(s): I50.23 - ACUTE ON CHRONIC SYSTOLIC (CONGESTIVE) HEART FAILURE Status : Acute Comment: ef of 15% with mod mitral regurg and severe pulm htn (2) Hypothyroidism Code(s): E03.9 - HYPOTHYROIDISM, UNSPECIFIED Status: Chronic Qualifiers: Hypothyroidism type: unspecified Qualified Code(s): E03.9 - Hypothyroidism , unspecified (3) Atrial fibrillation Code(s): I48.91 - UNSPECIFIED ATRIAL FIBRILLATION Status: Chronic Comment: paroxysmal (4) Diabetes mellitus type 2 Code(s): E11.9 - TYPE 2 DIABETES MELLITUS WITHOUT COMPLICATIONS Status: Chronic (5) Dyslipidemia Code(s): E78.5 - HYPERLIPIDEMIA, UNSPECIFIED Status: Chronic (6) HYPERTENSION Status: Chronic (7) PAD (peripheral artery disease) Code(s): I73.9 - PERIPHERAL VASCULAR DISEASE, UNSPECIFIED Status: Chronic Comment: h/o R BKA (8) PNA (pneumonia) Code(s): J18.9 - PNEUMONIA, UNSPECIFIED ORGANISM Status: Acute Qualifiers: Pneumonia type: aspiration pneumonia Aspiration pneumonia type: due to regurgitated food Laterality: right - Plan d/w , will initiate palliative care, poor prognosis -: is on iv diuretics per 's adv -: sbp around 90's, not much room for adding hydralazine/nitro -: modified ba swallow today -: PT to mobilize as tolerated * . at bedside confirms that she wants to take her home when he gets better and no snf/rehab/swing placements. Review of Systems - Medications/Allergies Allergies/Adverse Reactions: Allergies Allergy/AdvReac Type Severity Reaction Status Date / Time YARI Inhibitors Allergy Mild Verified 04/05/18 18:27 ARB-Angiotensin Receptor Allergy Mild Verified 04/05/18 18:28 Antagonist Beta-Blockers Allergy Mild Verified 04/05/18 18:28 (Beta-Adrenergic Bloc Medications: Current Medications Albuterol/Ipratropium (Duoneb) 3 ml NEB [id number] [facility] Last Admin: 10/23/18 13:22 Dose: 3 ml Apixaban (Eliquis) 2.5 mg PO BID [facility] Last Admin: 10/23/18 09:24 Dose: 2.5 mg Atorvastatin Calcium (Lipitor) 20 mg PO DAILY [facility] Last Admin: 10/23/18 09:24 Dose: 20 mg Azelastine HCl (Azelastine) 0 ml NS BIDPRN PRN PRN Reason: Allergies Cyanocobalamin (Vitamin B-12) 500 mcg PO DAILY [facility] Last Admin: 10/23/18 09:25 Dose: 500 mcg Digoxin (Lanoxin) 0.125 mg PO DAILY [facility] Last Admin: 10/23/18 09:26 Dose: 0.125 mg Diphenhydramine HCl (Benadryl) 25 mg PO Q4H PRN PRN Reason: Itching Donepezil HCl (Aricept) 10 mg PO DAILY [facility] Last Admin: 10/23/18 09:26 Dose: 10 mg Finasteride (Proscar) 5 mg PO DAILY [facility] Last Admin: 10/23/18 09:26 Dose: 5 mg Furosemide (Lasix) 80 mg SLOW IVP NOW ANA Stop: 10/23/18 15:30 Levothyroxine Sodium (Synthroid) 50 mcg PO 0600 [facility] Last Admin: 10/23/18 05:45 Dose: 50 mcg Loratadine (Claritin) 10 mg PO DAILYPRN PRN PRN Reason: Allergies Methylcellulose (Citrucel) 500 mg PO DAILY [facility] Last Admin: 10/23/18 09:25 Dose: 500 mg Potassium Chloride (K-Dur) 20 meq PO QAM-WM [facility] Last Admin: 10/23/18 09:24 Dose: 20 meq Pyridoxine HCl (Vitamin B 6) 100 mg PO DAILY [facility] Last Admin: 10/23/18 09:26 Dose: 100 mg Sodium Chloride (Flush - Normal Saline) 10 ml IVF Q12HR [facility] Last Admin: 10/23/18 09:51 Dose: 10 ml Sodium Chloride (Flush - Normal Saline) 10 ml IVF PRN PRN PRN Reason: Saline Flush Last Admin: 10/19/18 06:01 Dose: 10 ml Torsemide (Demadex) 40 mg PO BID@0900,1400 [facility] Last Admin: 10/23/18 13:08 Dose: 40 mg
--- NOTE | 2018-10-23 13:38 | PRG ---
DATE OF SERVICE: 10/23/2018 SUBJECTIVE: Mr. Owens is doing well. His events have been reviewed. His feels like he is approaching his baseline. OBJECTIVE: LUNGS: Clear. HEART: Regular rhythm. ABDOMEN: Soft. LABORATORY DATA: No new labs except glucoses. IMPRESSION AND PLAN: 1. Volume overload, clinically resolving. 2. Moderate to severe mitral regurgitation. 3. Swollen tongue reported, although his tongue does not appear swollen at this time. 4. History of frequent infections on rotating antibiotics. All these are felt to be aspiration-mediated. opted to move forward with comfort feeds. Of note is that he is in the hospital as a full resuscitation patient. I doubt very seriously that his would want him mechanically ventilated, but I have not discussed that with her yet. He probably is stable for discharge tomorrow in my opinion. Job ID: [id number]
[2018-10-23 15:09] VITALS: BMI 20.5
[2018-10-23] MEDS ORDERED: Dextrose 50% Abboject 50 ML SYRINGE SLOW IVP PRN (17:39)
[2018-10-23] MEDS ORDERED: Dextrose 5% in Water 1,000 ML IV PRN (17:39)
[2018-10-23] MEDS: HumaLOG 300 UNITS/3 ML VIAL SC PRN (18:21)
[2018-10-24] MEDS: Levothyroxine Sodium 50 MCG TAB PO SCH (05:31)
[2018-10-24] MEDS: Apixaban 2.5 MG TAB PO SCH ×2 (08:15→20:12)
[2018-10-24] MEDS: Torsemide 20 MG TAB PO SCH ×2 (08:15→14:05)
[2018-10-24] MEDS: Donepezil HCl 10 MG TAB PO SCH (08:16)
[2018-10-24] MEDS: Digoxin 0.125 MG TAB PO SCH (08:16)
[2018-10-24] MEDS: Finasteride 5 MG TAB PO SCH (08:16)
[2018-10-24] MEDS: Atorvastatin Calcium 20 MG TAB PO SCH (08:16)
[2018-10-24] MEDS: Citrucel 500 MG TAB PO SCH (08:16)
[2018-10-24] MEDS: pyridOXINE 50 MG (B6) TAB PO SCH (08:16)
[2018-10-24] MEDS: Cyanocobalamin (Vitamin B-12) 1,000 MCG TAB PO SCH (08:17)
[2018-10-24] MEDS: Potassium Chloride 20 MEQ TAB PO SCH (08:17)
--- NOTE | 2018-10-24 11:59 | PDOC.PN ---
- Subjective Encounter Start Date: 10/24/18 Encounter Start Time: 07:30 Subjective: no sob or palp -: is sitting on bed, no trouble swallowing or tongue swelling -: at bedside - Objective Resuscitation Status - Order Detail: 10/17/18 20:12 Resuscitation Status Routine Resuscitation Status: FULL: Full Resuscitation MAR Reviewed: Yes Vital Signs & Weight: Vital Signs (12 hours) Temp Pulse Resp BP Pulse Ox 10/24/18 08:16 73 10/24/18 08:00 100 10/24/18 07:42 97.5 F L 73 20 107/59 L 100 10/24/18 06:31 85 22 H 10/24/18 00:54 113 H 18 93 L 10/24/18 00:00 97.8 F 71 20 104/51 L 98 Weight Admit Weight 160 lb 8 oz Weight 159 lb 12.8 oz I&O: 10/23/18 10/24/18 10/25/18 06:59 06:59 06:59 Intake Total 110 200 240 Output Total 0 Balance 110 200 240 Result Diagrams: 10/22/18 08:44 10/22/18 08:44 Additional Labs: Accuchecks 10/24/18 10/24/18 10/23/18 11:16 04:44 20:10 POC Glucose 210 H 148 H 177 H 10/23/18 10/23/18 16:48 11:21 POC Glucose 232 H 143 H Phys Exam - Physical Examination HEENT: PERRLA, moist MMs Neck: no JVD, supple Respiratory: no wheezing, no rales Cardiovascular: RRR, no significant murmur Gastrointestinal: soft, non-tender, positive bowel sounds Musculoskeletal: no edema, pulses present Neurological: non-focal, moves all 4 limbs Psychiatric: A&O x 3 Dx/Plan (1) Acute on chronic systolic (congestive) heart failure Code(s): I50.23 - ACUTE ON CHRONIC SYSTOLIC (CONGESTIVE) HEART FAILURE Status : Acute Comment: ef of 15% with mod mitral regurg and severe pulm htn (2) Hypothyroidism Code(s): E03.9 - HYPOTHYROIDISM, UNSPECIFIED Status: Chronic Qualifiers: Hypothyroidism type: unspecified Qualified Code(s): E03.9 - Hypothyroidism , unspecified (3) Atrial fibrillation Code(s): I48.91 - UNSPECIFIED ATRIAL FIBRILLATION Status: Chronic Comment: paroxysmal (4) Diabetes mellitus type 2 Code(s): E11.9 - TYPE 2 DIABETES MELLITUS WITHOUT COMPLICATIONS Status: Chronic (5) Dyslipidemia Code(s): E78.5 - HYPERLIPIDEMIA, UNSPECIFIED Status: Chronic (6) HYPERTENSION Status: Chronic (7) PAD (peripheral artery disease) Code(s): I73.9 - PERIPHERAL VASCULAR DISEASE, UNSPECIFIED Status: Chronic Comment: h/o R BKA (8) PNA (pneumonia) Code(s): J18.9 - PNEUMONIA, UNSPECIFIED ORGANISM Status: Acute Qualifiers: Pneumonia type: aspiration pneumonia Aspiration pneumonia type: due to regurgitated food Laterality: right - Plan hemostable -: dc plan per 's advice -: is on torsemide bid, digoxin, eliquis, lipitor -: aricept, proscar, synthroid -: insulin coverage for now * . Review of Systems - Medications/Allergies Allergies/Adverse Reactions: Allergies Allergy/AdvReac Type Severity Reaction Status Date / Time YARI Inhibitors Allergy Mild Verified 04/05/18 18:27 ARB-Angiotensin Receptor Allergy Mild Verified 04/05/18 18:28 Antagonist Beta-Blockers Allergy Mild Verified 04/05/18 18:28 (Beta-Adrenergic Bloc Medications: Current Medications Albuterol/Ipratropium (Duoneb) 3 ml NEB [id number] [facility] Last Admin: 10/24/18 06:31 Dose: 3 ml Apixaban (Eliquis) 2.5 mg PO BID [facility] Last Admin: 10/24/18 08:15 Dose: 2.5 mg Atorvastatin Calcium (Lipitor) 20 mg PO DAILY [facility] Last Admin: 10/24/18 08:16 Dose: 20 mg Azelastine HCl (Azelastine) 0 ml NS BIDPRN PRN PRN Reason: Allergies Cyanocobalamin (Vitamin B-12) 500 mcg PO DAILY [facility] Last Admin: 10/24/18 08:17 Dose: 500 mcg Dextrose/Water (Dextrose 50%) 25 gm SLOW IVP PRN PRN PRN Reason: Hypoglycemia Digoxin (Lanoxin) 0.125 mg PO DAILY [facility] Last Admin: 10/24/18 08:16 Dose: 0.125 mg Diphenhydramine HCl (Benadryl) 25 mg PO Q4H PRN PRN Reason: Itching Donepezil HCl (Aricept) 10 mg PO DAILY [facility] Last Admin: 10/24/18 08:16 Dose: 10 mg Finasteride (Proscar) 5 mg PO DAILY [facility] Last Admin: 10/24/18 08:16 Dose: 5 mg Glucagon (Glucagon) 1 mg IM PRN PRN PRN Reason: Hypoglycemia Dextrose/Water (D5w) 1,000 mls @ 0 mls/hr IV .Q0M PRN PRN Reason: Hypoglycemia Insulin Human Lispro (Humalog) 0 units SC .MODERATE SLIDING SC PRN PRN Reason: Moderate Correctional Scale Last Admin: 10/23/18 18:21 Dose: 4 unit Levothyroxine Sodium (Synthroid) 50 mcg PO 0600 [facility] Last Admin: 10/24/18 05:31 Dose: 50 mcg Loratadine (Claritin) 10 mg PO DAILYPRN PRN PRN Reason: Allergies Methylcellulose (Citrucel) 500 mg PO DAILY [facility] Last Admin: 10/24/18 08:16 Dose: 500 mg Potassium Chloride (K-Dur) 20 meq PO QAM-WM [facility] Last Admin: 10/24/18 08:17 Dose: 20 meq Pyridoxine HCl (Vitamin B 6) 100 mg PO DAILY [facility] Last Admin: 10/24/18 08:16 Dose: 100 mg Sodium Chloride (Flush - Normal Saline) 10 ml IVF Q12HR [facility] Last Admin: 10/24/18 08:22 Dose: 10 ml Sodium Chloride (Flush - Normal Saline) 10 ml IVF PRN PRN PRN Reason: Saline Flush Last Admin: 10/19/18 06:01 Dose: 10 ml Torsemide (Demadex) 40 mg PO BID@0900,1400 [facility] Last Admin: 10/24/18 08:15 Dose: 40 mg
--- NOTE | 2018-10-24 13:54 | RAD ---
MODIFIED BARIUM SWALLOW WITH A SPEECH THERAPIST: Date: 10/23/18 HISTORY: 82-year-old male with history of pneumonias and dysphagia. Feeding difficulties. FINDINGS/IMPRESSION: A modified barium swallow was performed by the speech therapist. A video was performed. No aspiration or penetration was seen during the examination. Please see dedicated speech therapy report for speci fic findings and recommendations. POS: WHITNEY
--- NOTE | 2018-10-24 15:47 | PRG ---
DATE OF SERVICE: 10/24/2018 SUBJECTIVE: Jem Owens is in no distress. OBJECTIVE: VITAL SIGNS: He is afebrile. Heart rate 73, respiratory rate is 18, blood pressure 105/50. Intake and output were not recorded. LUNGS: Clear. HEART: Regular rhythm. ABDOMEN: Soft. LABORATORY DATA: There is no recent lab other than blood glucoses. IMPRESSION: 1. History of aspiration, managed with rotating antibiotics. 2. Advanced dementia. 3. His says that he is a do not resuscitate patient. It has been documented in the past. 4. Volume overload, improved. 5. Moderate to severe mitral regurgitation. 6. ? Swollen tongue with recent medications. PLAN: He is stable for discharge. Job ID: [id number]
[2018-10-25] MEDS: Levothyroxine Sodium 50 MCG TAB PO SCH (08:11)
[2018-10-25] MEDS: Torsemide 20 MG TAB PO SCH (08:12)
[2018-10-25] MEDS: Digoxin 0.125 MG TAB PO SCH (08:12)
[2018-10-25] MEDS: Apixaban 2.5 MG TAB PO SCH (08:12)
[2018-10-25] MEDS: Potassium Chloride 20 MEQ TAB PO SCH (08:15)
[2018-10-25] MEDS: Atorvastatin Calcium 20 MG TAB PO SCH (08:15)
[2018-10-25] MEDS: Finasteride 5 MG TAB PO SCH (08:15)
[2018-10-25] MEDS: Donepezil HCl 10 MG TAB PO SCH (08:15)
[2018-10-25] MEDS: pyridOXINE 50 MG (B6) TAB PO SCH (08:15)
[2018-10-25] MEDS: Cyanocobalamin (Vitamin B-12) 1,000 MCG TAB PO SCH (08:16)
[2018-10-25] MEDS: Citrucel 500 MG TAB PO SCH (10:23)
[2018-10-25 12:35] VITALS: TEMP 97.8
--- NOTE | 2018-10-25 12:49 | PDOC.PN ---
- Subjective Encounter Start Date: 10/25/18 Encounter Start Time: 08:30 Subjective: is sitting on bed, no sob -: at bedside -: pt feels better, is ready to go home - Objective Resuscitation Status - Order Detail: 10/24/18 17:32 Resuscitation Status Routine Resuscitation Status: DNAR: NO Resuscitation Discussed with: s/w , Karen HAMPTON Reviewed: Yes Vital Signs & Weight: Vital Signs (12 hours) Temp Pulse Resp BP Pulse Ox 10/25/18 12:35 97.8 F 78 16 107/64 100 10/25/18 08:12 72 10/25/18 08:00 97.9 F 70 10/25/18 07:38 97.9 F 70 18 103/60 100 10/25/18 07:30 70 18 10/25/18 01:50 71 20 98 Weight Admit Weight 160 lb 8 oz Weight 159 lb 12.8 oz I&O: 10/24/18 10/25/18 10/26/18 06:59 06:59 06:59 Intake Total 200 820 Output Total 0 Balance 200 820 Result Diagrams: 10/22/18 08:44 10/22/18 08:44 Additional Labs: Accuchecks 10/25/18 10/24/18 10/24/18 04:34 20:36 16:38 POC Glucose 160 H 190 H 191 H Phys Exam - Physical Examination HEENT: PERRLA, moist MMs Neck: no JVD, supple Respiratory: no wheezing, no rales Cardiovascular: RRR, no significant murmur Gastrointestinal: soft, non-tender, positive bowel sounds Musculoskeletal: pulses present right bka Neurological: non-focal, moves all 4 limbs Psychiatric: A&O x 3 Dx/Plan (1) Acute on chronic systolic (congestive) heart failure Code(s): I50.23 - ACUTE ON CHRONIC SYSTOLIC (CONGESTIVE) HEART FAILURE Status : Acute Comment: ef of 15% with mod mitral regurg and severe pulm htn (2) Hypothyroidism Code(s): E03.9 - HYPOTHYROIDISM, UNSPECIFIED Status: Chronic Qualifiers: Hypothyroidism type: unspecified Qualified Code(s): E03.9 - Hypothyroidism , unspecified (3) Atrial fibrillation Code(s): I48.91 - UNSPECIFIED ATRIAL FIBRILLATION Status: Chronic Comment: paroxysmal (4) Diabetes mellitus type 2 Code(s): E11.9 - TYPE 2 DIABETES MELLITUS WITHOUT COMPLICATIONS Status: Chronic (5) Dyslipidemia Code(s): E78.5 - HYPERLIPIDEMIA, UNSPECIFIED Status: Chronic (6) HYPERTENSION Status: Chronic (7) PAD (peripheral artery disease) Code(s): I73.9 - PERIPHERAL VASCULAR DISEASE, UNSPECIFIED Status: Chronic Comment: h/o R BKA (8) PNA (pneumonia) Code(s): J18.9 - PNEUMONIA, UNSPECIFIED ORGANISM Status: Acute Qualifiers: Pneumonia type: aspiration pneumonia Aspiration pneumonia type: due to regurgitated food Laterality: right - Plan hemostable -: d/w and patient at bedside -: dc pt home with HH, palliative care * .
[2018-10-25] MEDS: HumaLOG 300 UNITS/3 ML VIAL SC PRN (13:06)
--- NOTE | 2018-10-25 13:09 | PRG ---
DATE OF SERVICE: 10/25/2018 SUBJECTIVE: Jem Owens did well overnight. I awakened him from sleep this morning. He is tentatively scheduled to be discharged. OBJECTIVE: VITAL SIGNS: He is afebrile. Heart rate 70, respiratory rate 18, oximetry is 100% on 3 L, blood pressure 103/60. LUNGS: Clear. HEART: Regular rhythm. ABDOMEN: Soft. EXTREMITIES: He does not have his prosthetic leg on. IMPRESSION: 1. Volume overload, improving. 2. Recurrent tracheobronchial infections and pneumonias that have actually been successfully prevented with rotating antibiotics every month. We will restart his Bactrim on the and take that for 10 days and then scope from instead of doing it on the of the month, he will be doing around the of every month. 3. Advanced dementia. 4. Do not resuscitate status. 5. [id number] mitral regurgitation. 6. Question swollen tongue with recent cardiac medications. PLAN: Continue with supportive care. I will see him in followup sometime this summer, he has October appointment, but there is no real reason to see him next month if he is doing well. Job ID: [id number]
[2018-10-25 17:15] VITALS: BP 108/62
--- NOTE | 2018-10-26 13:01 | DIS ---
DATE OF ADMISSION: 10/17/2018 DATE OF DISCHARGE: 10/25/2018 DISCHARGE DISPOSITION: Home with Home Health. PRIMARY DISCHARGE DIAGNOSIS: Acute end-stage congestive heart failure exacerbation with systolic dysfunction and an ejection fraction of 15%, stage D. SECONDARY DISCHARGE DIAGNOSES: 1. Chronic atrial fibrillation. 2. Aspiration pneumonia with oropharyngeal dysphagia. 3. Peripheral vascular disease. 4. Dyslipidemia. 5. Diabetes mellitus type 2. 6. Hypothyroidism. PROCEDURES DONE DURING HOSPITALIZATION: Echo with 2D Doppler done on the revealed ejection fraction of 15% to 20%, [id number] mitral regurgitation, severely elevated pulmonary artery pressure with PA systolic pressures of 70 mmHg, [id number] tricuspid regurgitation. Chest x-ray done on the day of admission showed cardiomegaly with pulmonary vascular congestion and enlarging right pleural effusion. Soft tissue neck CT with contrast done showed no abnormal mucosal enhancing mass or cervical adenopathy. No evidence of acute infectious process of the larynx. There was 70% narrowing of the proximal left internal carotid artery near the carotid bulb including mixture of calcific and soft plaque. Stool for C diff is negative. Stool for Campylobacter and Shiga toxin negative. Hemoglobin and hematocrit were 13 and 43, platelet count 174. Discharge BUN and creatinine were 37 and 0.8. BNP was 1031. Troponin I was indeterminate, peaking up to 0.05; CK-MB 6.0, albumin 2.8. INPATIENT CONSULT: 1. Dr. Iraheta for Cardiology. 2. Dr. Murray/Hernesto for Pulmonology. DISCHARGE MEDICATIONS: 1. Eliquis 2.5 mg p.o. twice daily. 2. Lipitor 20 mg p.o. daily. 3. Vitamin B12 500 mcg p.o. daily. 4. Digoxin 0.125 mg p.o. daily. 5. Aricept 10 mg p.o. daily. 6. Fexofenadine p.r.n. 7. Synthroid 50 mcg p.o. daily. 8. Vitamin B6 100 mg p.o. daily. 9. Torsemide 40 mg twice daily. 10. Citrucel tablets 500 mg p.o. daily. 11. Finasteride 5 mg p.o. daily. 12. Potassium chloride 20 mEq p.o. daily. ALLERGIES: TO YARI INHIBITORS, ARBS, BETA BLOCKERS. DISCHARGE PLAN: The patient to follow up with Dr. Iraheta in 4 to 6 weeks and primary care physician in 1 week. BRIEF COURSE DURING HOSPITALIZATION: The patient was brought to emergency room on the with complaints of increasing shortness of breath. He has known history of CHF with systolic dysfunction. He was essentially admitted to telemetry for acute on chronic congestive heart failure exacerbation with end-stage CHF with ejection fraction of around 15% to 20%. The patient is intolerant to beta blockers with dropping his blood pressures. He was gently diuresed, keeping in mind with a systolic blood pressures being around 100. He was also initiated on Entresto, but the patient developed tongue swelling with likely allergy to YARI, ARB. This was discontinued. He also has chronic oropharyngeal dysphagia and there was suspicion for aspiration pneumonia as well. The patient improved with his tongue swelling for 24 hours after discontinuing Entresto, but developed it again and his Augmentin was discontinued after that. Since then, the patient has remained stable. The patient has end-stage CHF with no good options in view of his allergy to YARI, ARBs, and intolerance for beta jian. Palliative Care consultation was requested. He also has dementia, which is progressively worsening. His wanted to take him home and did not want any placement. Home Health has been arranged with Physical Therapy and Palliative Care to follow with him. His overall prognosis is poor. Please see a [id number] documentation for the day of discharge on [employer]. Job ID: [id number] [facility]
== END 2018-10-25 13:10 | disposition home health service (06) | DRG 291 ==
LOC: ERS 14:01 → ERHOLD 16:49 → 2NO 18:34 → T4-B 10-20 17:16
PROVIDERS: ADMIT Internal Medicine; ATTEND Internal Medicine
DX: I11.0 Hypertensive heart disease with heart failure (principal); J96.01 Acute respiratory failure with hypoxia; J69.0 Pneumonitis due to inhalation of food and vomit; E44.1 Mild protein-calorie malnutrition; K52.1 Toxic gastroenteritis and colitis; I50.23 Acute on chronic systolic (congestive) heart failure; I25.10 Atherosclerotic heart disease of native coronary artery without angina pectoris; I48.0 Paroxysmal atrial fibrillation; R13.12 Dysphagia, oropharyngeal phase; E11.51 Type 2 diabetes mellitus with diabetic peripheral angiopathy without gangrene; F03.90 Unspecified dementia, unspecified severity, without behavioral disturbance, psychotic disturbance, mood disturbance, and anxiety; E78.5 Hyperlipidemia, unspecified; I27.20 Pulmonary hypertension, unspecified; I34.0 Nonrheumatic mitral (valve) insufficiency; J44.9 Chronic obstructive pulmonary disease, unspecified; T78.3XXA Angioneurotic edema, initial encounter; T46.5X5A Adverse effect of other antihypertensive drugs, initial encounter; I95.2 Hypotension due to drugs; F41.9 Anxiety disorder, unspecified; E03.9 Hypothyroidism, unspecified; Z66 Do not resuscitate; Z95.810 Presence of automatic (implantable) cardiac defibrillator; Z87.891 Personal history of nicotine dependence; Z89.511 Acquired absence of right leg below knee; Z85.51 Personal history of malignant neoplasm of bladder; Z68.20 Body mass index [BMI] 20.0-20.9, adult; Z79.01 Long term (current) use of anticoagulants; Z79.4 Long term (current) use of insulin; Z88.8 Allergy status to other drugs, medicaments and biological substances
CPT/HCPCS: 36415; 36416; 70491; 71045; 74230; 80048; 80053; 82553; 83880; 84484; 85007; 85025; 85027; 85652; 86140; 87045; 87046; 87324; 87449; 87899; 93005; 93306; 94640; 94760; 96374; J1200; J1825; J1940; J7620; Q9966

== ENCOUNTER 2018-10-30 12:55 | Outpatient (CLI) | payer MEDICARE ==
[~2018-10-30 12:55] MED LIST changes: -ISOVUE-370 76%-LOCM 1 ML ONE; +Lidocaine 2% PF 100 mg/5 ml Syringe ONE; +Sodium Chloride 0.9% 15 ML NEB ONE
--- NOTE | 2018-10-30 14:19 | PRG ---
DATE OF SERVICE: 10/30/2018 HISTORY: Mr. Jem Owens is a very pleasant 82-year-old gentleman, accompanied by his , who presents to the wound center for evaluation of an ulceration of the dorsum of the left foot. The patient also has two ulcerations over the lateral aspect of the left foot. Since the patient's last visit, Mr. Owens was admitted to [facility] for congestive heart failure exacerbation. Upon discharge from [facility], the patient's has resumed dressing changes of Adaptic for the ulceration over the dorsum of the left foot. The ulcerations over the lateral aspect of the left foot are dressed with Kerlix. The patient's states that Mr. Owens was seen in consultation by Dr. Llamas, who recommended continuing dressing changes. The patient's states that Dr. Llamas recommended no surgery at the present time. PHYSICAL EXAMINATION: VITAL SIGNS: Temperature 97.6, pulse 70, respirations 24, and blood pressure 106/53. Accu-Chek 67. EXTREMITIES: The ulceration over the dorsum of the left foot measures approximately 4.4 x 4.5 cm. The dimensions of the wound at the time of the patient's visit on 09/27/2018 were approximately 4.3 x 4.4 cm. The ulcerations over the lateral aspect of the left foot are dry. Each ulceration is completely covered by dry stable eschar. Granulation tissue is visible within the wound margins of the ulceration over the dorsum of the left foot. No purulent drainage is associated with the wound. No cellulitis of the left foot is appreciated. No maceration of the skin of the periwound is noted. No significant edema of the left foot is appreciated on today's exam. ASSESSMENT AND PLAN: 1. Ulceration of dorsum of left foot as described above. The patient also has two ulcerations over the lateral aspect of the left foot, both covered by dry stable eschar. Dressing changes of Adaptic, ABD, Kerlix, and an Russell bandage will be continued for the ulceration over the dorsum of the left foot on a daily basis after cleansing and irrigation with the assistance of Home Health and the patient's . The ulcerations over the lateral aspect of the left foot are being dressed with Kerlix alone followed by the Russell bandage. I will see Mr. Owens again in 3 to 4 weeks. 2. History of subdural hematoma. 3. Ischemic cardiomyopathy. 4. Diabetes mellitus, type 2. The patient's Accu-Chek in clinic today is 67. The patient's has been reminded that for optimal wound healing, the patient's blood glucoses should remain below 150. 5. History of hypertension. 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 7. Coronary artery disease. 8. Paroxysmal atrial fibrillation. 9. Peripheral vascular disease. 10. Dementia. Job ID: [id number]
== END 2018-10-30 12:56 | disposition home or self-care (01) ==
LOC: WCC 12:55
PROVIDERS: ATTEND Family Medicine
DX: E11.621 Type 2 diabetes mellitus with foot ulcer (principal); L97.529 Non-pressure chronic ulcer of other part of left foot with unspecified severity; I25.5 Ischemic cardiomyopathy; I25.10 Atherosclerotic heart disease of native coronary artery without angina pectoris; I48.0 Paroxysmal atrial fibrillation; I73.9 Peripheral vascular disease, unspecified; F03.90 Unspecified dementia, unspecified severity, without behavioral disturbance, psychotic disturbance, mood disturbance, and anxiety; Z86.79 Personal history of other diseases of the circulatory system; Z85.51 Personal history of malignant neoplasm of bladder
CPT/HCPCS: 97602; A4218; J2001

== ENCOUNTER 2018-11-05 13:34 | Outpatient (CLI) | payer MEDICARE ==
--- NOTE | 2018-11-05 19:45 | RAD ---
AP CHEST: Indication: History of wheezing and shortness of breath. Comparison: 10-23-18 FINDINGS: Cardiomegaly with pulmonary vascular congestion has slightly worsened. There is a small right and tin y left pleural effusion. There is airspace opacity within both lung bases which may reflect atelectas is or pneumonia. There is a multi-lead AICD overlying the left chest wall which is stable to the comp arison. No acute osseous abnormality is evident. IMPRESSION: 1. Findings of worsening CHF. 2. Bibasilar opacities may reflect atelectasis, airspace edema, or pneumonia. Recommend continued rad iographic follow up. POS: NEIL
== END 2018-11-05 13:35 | disposition home or self-care (01) ==
LOC: RAD 13:34
PROVIDERS: ATTEND Physical Medicine & Rehabilitation
DX: R06.02 Shortness of breath (principal); R06.2 Wheezing; R91.8 Other nonspecific abnormal finding of lung field; I50.9 Heart failure, unspecified
CPT/HCPCS: 71045

== ENCOUNTER 2018-11-23 19:48 | Inpatient (IN) | payer MEDICARE ==
[2018-11-23 20:18] LABS: #Eosinphils 0.1 thou/uL (0.0-0.7); #Lymphocytes 0.6 thou/uL (1.20-3.40); #Monocytes 0.7 thou/uL (0.11-0.59); #Neutrophils 7.2 thou/uL (1.40-6.50); %Basophils 0.3 % (0.0-1.0); %Eosinophils 1.7 % (0.0-10.0); %Monocytes 8.1 % (0.0-10.0); Hemoglobin 12.5 g/dL (14.0-18.0); Mean Corpuscular HGB CONC 31.5 g/dL (32.0-36.0); Mean Corpuscular Hemoglobin 31.2 pg (27.0-31.0); Platelet Count 225 thou/uL (130-400); RBC Distribution Width 15.6 % (11.5-14.5); Red Blood Cell (RBC) Count 4.02 mill/uL (4.70-6.10); White Blood Cell (WBC) Count 8.7 thou/uL (4.8-10.8)
[2018-11-23 20:40] LABS: ALT (SGPT) 14 U/L (8-55); AST (SGOT) 24 U/L (5-34); Albumin 2.6 g/dL (3.4-4.8); Alkaline Phosphatase 129 U/L (40-150); BUN (Urea Nitrogen) 31 mg/dL (8.4-25.7); Bilirubin, Total 0.8 mg/dL (0.2-1.2); Calc. Creatinine Clearance 0 mL/min (70-130); Calcium 8.4 mg/dL (7.8-10.44); Estimated GFR-MDRD 88; Globulin 2.7 g/dL (2.4-3.5); Glucose 165 mg/dL (83-110); Lipase 13 U/L (8-78); Protein, Total 5.3 g/dL (5.8-8.1)
[2018-11-23 20:43] LABS: Digoxin 1.03 ng/mL (0.8-2.0)
[2018-11-23 20:48] LABS: Anion Gap 16 mmol/L (10-20); Carbon Dioxide 36 mmol/L (23-31); Chloride 91 mmol/L (98-107); Potassium 3.8 mmol/L (3.5-5.1); Sodium 139 mmol/L (136-145)
--- NOTE | 2018-11-23 21:15 | RAD ---
CHEST ONE VIEW: 11/23/18 HISTORY: Chest pain. COMPARISON: 11/13/18. FINDINGS: The cardiac silhouette is magnified and enlarged. Pulmonary vasculature remains slightly engorged wit h patchy bibasilar infiltrates and blunting of the right lateral costophrenic angle. Mediastinum is m idline with aortic calcifications and a multilead left subclavian cardiac electronic device. No lobar consolidation or evidence of pneumothorax. IMPRESSION: Pulmonary vascular congestion and right pleural fluid have improved slightly since the 11/13/18 exam. POS: NEIL
[2018-11-23] MEDS ORDERED: Magnesium 2 GM/50 ML BAG (IN WATER) ONE (21:19)
[2018-11-23] MEDS ORDERED: Amiodarone 150 MG/3 ML VIAL ONE ×3 (21:19→21:50)
[2018-11-23 21:54] LABS: CKMB 3.1 ng/mL (0-6.6)
[2018-11-23] MEDS ORDERED: Ondansetron ODT 4 MG TAB PO PRN (21:58)
[2018-11-23] MEDS ORDERED: Acetaminophen 325 MG TAB PO PRN (21:58)
[2018-11-23] MEDS ORDERED: Ondansetron PF 4 MG/2 ML Vial IVP PRN (21:58)
[2018-11-23] MEDS ORDERED: Azelastine 137 MCG/Spray 30 ML NS PRN (22:00)
[2018-11-23] MEDS ORDERED: Norepinephrine 8 MG/0.9% NS 0 ML ONE (22:04)
[2018-11-23 23:38] LABS: Troponin I 0.094 ng/mL (< 0.028)
[2018-11-24 00:06] LABS: Lactic Acid 1.2 mmol/L (0.5-2.2)
[2018-11-24 01:43] VITALS: BMI 21.4
[2018-11-24 02:38] LABS: Troponin I 0.134 ng/mL (< 0.028)
[2018-11-24] MEDS ORDERED: Dextrose 5% in Water 1,000 ML IV PRN (03:38)
[2018-11-24] MEDS ORDERED: Dextrose 50% Abboject 50 ML SYRINGE SLOW IVP PRN (03:38)
[2018-11-24] MEDS ORDERED: diphenhydrAMINE 50 MG/ML VIAL IVP SCH (03:45)
[2018-11-24] MEDS: Amiodarone 450 MG, Admixture Fee 1 EACH in Dextrose 5% in Water 250 ML IVPB SCH ×2 (04:38→21:05)
[2018-11-24 04:45] LABS: #Eosinphils 0.1 thou/uL (0.0-0.7); #Lymphocytes 0.7 thou/uL (1.20-3.40); #Neutrophils 9.9 thou/uL (1.40-6.50); %Basophils 0.3 % (0.0-1.0); %Lymphocytes 5.7 % (21.0-51.0); %Monocytes 8.4 % (0.0-10.0); %Neutrophils 84.7 % (42.0-75.0); Hemoglobin 12.4 g/dL (14.0-18.0); Mean Corpuscular HGB CONC 31.7 g/dL (32.0-36.0); Mean Corpuscular Hemoglobin 31.3 pg (27.0-31.0); Mean Corpuscular Volume 98.8 fL (78.0-98.0); Mean Platelet Volume 9.2 fL (7.4-10.4); Platelet Count 210 thou/uL (130-400); RBC Distribution Width 15.6 % (11.5-14.5); Red Blood Cell (RBC) Count 3.95 mill/uL (4.70-6.10); White Blood Cell (WBC) Count 11.7 thou/uL (4.8-10.8)
[2018-11-24 05:05] LABS: BUN (Urea Nitrogen) 34 mg/dL (8.4-25.7); Calc. Creatinine Clearance 71 mL/min (70-130); Calcium 8.4 mg/dL (7.8-10.44); Estimated GFR-MDRD 88; Glucose 148 mg/dL (83-110)
[2018-11-24 05:14] LABS: Anion Gap 15 mmol/L (10-20); Carbon Dioxide 35 mmol/L (23-31); Chloride 92 mmol/L (98-107); Potassium 3.3 mmol/L (3.5-5.1); Sodium 139 mmol/L (136-145)
--- NOTE | 2018-11-24 07:06 | HP ---
PRIMARY CARE DOCTOR: Willian Pham MD CODE STATUS: DNR/DNI. TIME OF EVALUATION: 2139. CHIEF COMPLAINT: "I just passed out." HISTORY OF PRESENT ILLNESS: This is an 83-year-old male patient with past medical history of atrial fibrillation, diabetes type 2, hypothyroidism, dementia, pacemaker, AICD, hyperlipidemia, coronary artery disease, recent admissions due to ventricular tachycardia, came to the hospital after having an episode of syncope. The patient's reported that the patient was at home, became unresponsive around 7 p.m. with no clear triggers, no alleviating factors. All of a sudden, the patient received a shock and then regained consciousness. These episodes are repeated multiple times; here in the ER it repeated around 5 times. The patient has a history of previous admission with similar episodes, Dr. Iraheta was called and recommendation is for the patient to be placed on amiodarone drip, 2 boluses of 150 were given to control the arrhythmias. Occasionally, blood pressure of the patient has been in the low side. However, reviewing the records we noticed that the patient has an EF of 15%, so not expecting a very high systolic blood pressure. We will place him in ICU. We will monitor. We will follow Cardiology's recommendations. REVIEW OF SYSTEMS: Unable to fully obtain. The patient has underlying dementia. was questioned about general symptoms and she reported that the patient did not have any fever or chills. No significant cough. No complaints of chest pain except for when the patient have the episode of ventricular tachycardia. The patient has a right lower extremity amputation. PAST MEDICAL HISTORY: As mentioned in the HPI. PAST SURGICAL HISTORY: Cataracts, right BKA, and pacemaker defibrillator. PSYCH HISTORY: Dementia and anxiety. SOCIAL HISTORY: The patient drinks socially every week. No drug use. Former tobacco user, quit smoking more than 10 years ago. FAMILY HISTORY: Reviewed and noncontributory for this case. KNOWN ALLERGIES: To YARI inhibitors and beta blockers. REPORTED MEDICATIONS: 1. Eliquis. 2. Digoxin. 3. Atorvastatin. 4. Torsemide. 5. Potassium chloride. 6. Levothyroxine. 7. Fexofenadine. 8. Vitamin B6. 9. Finasteride. 10. Aricept. 11. Vitamin B12. PHYSICAL EXAMINATION: VITAL SIGNS: On presentation, blood pressure 102/81, heart rate 82, respiratory rate was 24, temperature 97.9, pain was 0/10, oxygen saturation 100% on 4 L. GENERAL APPEARANCE: The patient is alert, oriented, not in acute distress. The patient has underlying dementia. HEENT: Eyes, normal conjunctivae. Moist oral mucosa. Anicteric. No JVD. RESPIRATORY: Bilateral air entry. No rales. No wheezes. Symmetric expansion. CARDIOVASCULAR: Normal rate, regular rhythm. No murmurs. No gallop. No edema. ABDOMEN: Soft. Normal bowel sounds. MUSCULOSKELETAL: Baseline range of motion and strength. No tenderness. SKIN: Warm and intact. No pallor. No rash. No redness. EXTREMITIES: Peripheral pulses are present. Capillary refill seems to be intact. NEUROLOGIC: No evidence of any new focal weakness. Baseline speech. Cranial nerves seem to be intact. PSYCH: The patient is in good mood. No anxiety. Optimal judgment. On physical exam during the episode, the patient has rolling eyes to the left side. The patient becomes unresponsive due to underlying ventricular tachycardia. Once the patient received shock from the AICD, then the patient comes back to normal and regain normal functions. These episodes have the same pattern every time the patient goes into sustained ventricular tachycardia. DIAGNOSTIC DATA: EKG was reviewed. The patient has paced rhythm with a rate of 104 on tele. Once the patient goes into sustained ventricular tachycardia, then the AICD fires and the patient comes back to the same paced rhythm and normal rate. LABORATORY DATA: Labs were reviewed. The patient has white count 9.7, hemoglobin 12.5, MCV 99, platelet count 225. Chemistry; sodium 139, potassium 3.8, chloride 91, carbon dioxide 36, anion gap 16, BUN 31, creatinine 0.83, GFR 88, glucose 165. Lactic acid 1.2, calcium 9.4, total bilirubin 0.8. LFTs were negative. Troponin initial one was 0.094 and the second one was 0.134. The serum total protein 5.3 with albumin 2.6, globulin 2.7. Lipase was normal. Digoxin level was 1.03. ASSESSMENT AND PLAN: The patient will be placed in the hospital with the following medical problems: Critical care time more than 45 minutes spent in bedside assessment, counseling, and stabilization of the patient due to multiple episodes of ventricular tachycardia and hypotension. 1. Sustained ventricular tachycardia with multiple episodes of syncope associated to arrhythmia that have resolved after AICD has fired. Dr. Iraheta has been consulted, placed the patient on amiodarone drip, 2 boluses of 150 given, arrhythmia has been controlled, blood pressure in the low side and the patient has very low EF, so this in someway . We will place the patient in ICU. We will follow the Dr. Iraheta's recommendations. Reconcile home medications. 2. History of dementia. We will need supportive care as inpatient. 3. Acute episode of delirium, on and off, the patient might need some medications to help with it. 4. [id number] myocardial infarction type 2. The patient has troponin leakage of 0.094, next one is 0.134. We will monitor. We will treat accordingly. 5. History of systolic congestive heart failure. The patient is reported to have an EF of 15% to 20%, we will reconcile home medications. We will adjust treatment as needed. 6. Hypothyroidism. Continue hormone replacement. 7. Hyperlipidemia. Low-cholesterol diet is advised. Continue atorvastatin. 8. Chronic anticoagulation. Continue Eliquis. 9. Uncontrolled diabetes with blood sugar 165, reconcile home medications, and place the patient on a sliding scale for optimal control. 10. History of coronary artery disease, reconcile home medications, adjust as needed. 11. Deep venous thrombosis prophylaxis. Job ID: [id number]
[2018-11-24] MEDS ORDERED: Potassium Chloride 20 MEQ/100 ML PREMIX BAG IVPB SCH (09:00)
[2018-11-24] MEDS ORDERED: Torsemide 20 MG TAB PO SCH (09:00)
[2018-11-24] MEDS ORDERED: Spironolactone 25 MG TAB PO SCH (09:15)
[2018-11-24] MEDS ORDERED: Potassium Chloride 20 MEQ TAB PO SCH (09:18)
--- NOTE | 2018-11-24 09:35 | PDOC.PN ---
- Subjective Encounter Start Date: 11/24/18 Encounter Start Time: 09:33 Mr. Owens was seen today in follow-up of [facility]. He appears extremely weak. He does not have any complaints. - Objective Resuscitation Status - Order Detail: 11/23/18 21:58 Resuscitation Status Routine Resuscitation Status: DNAR: NO Resuscitation Discussed with: as verified by Er physician MEMO Reviewed: Yes Vital Signs & Weight: Vital Signs (12 hours) Temp Resp Pulse Ox 11/24/18 08:31 93 L 11/24/18 08:00 96 11/24/18 03:00 98.0 F 11/24/18 02:00 18 11/24/18 01:00 16 11/24/18 00:25 96 11/23/18 23:55 97.8 F 20 Weight Weight 167 lb 8.821 oz Most Recent Monitor Data Heart Rate from ECG 74 NIBP 112/51 NIBP BP-Mean 72 Respiration from ECG 22 SpO2 95 I&O: 11/23/18 11/24/18 11/25/18 06:59 06:59 06:59 Intake Total 496 Output Total 0 100 Balance 496 -100 Result Diagrams: 11/24/18 04:12 11/24/18 04:12 Phys Exam - Physical Examination HEENT: PERRLA Respiratory: no wheezing, no rales, no rhonchi, clear to auscultation bilateral Cardiovascular: RRR, no rub 2/6 systolic murmur Gastrointestinal: soft, non-tender Musculoskeletal: no edema Dx/Plan (1) Ventricular tachycardia Code(s): I47.2 - VENTRICULAR TACHYCARDIA Status: Acute (2) Acute on chronic systolic (congestive) heart failure Code(s): I50.23 - ACUTE ON CHRONIC SYSTOLIC (CONGESTIVE) HEART FAILURE Status : Acute Comment: ef of 15% with mod mitral regurg and severe pulm htn (3) AICD (automatic cardioverter/defibrillator) present Code(s): Z95.810 - PRESENCE OF AUTOMATIC (IMPLANTABLE) CARDIAC DEFIBRILLATOR Status: Chronic (4) Diabetes mellitus type 2 Code(s): E11.9 - TYPE 2 DIABETES MELLITUS WITHOUT COMPLICATIONS Status: Chronic (5) HYPERTENSION Status: Chronic - Plan * Ventricular Tachycardia- he has been started on IV Amiodarone. Discussed with Dr. Iraheta * Will transition him to oral Amiodarone * Chronic systolic heart failure- compensated * DM- will continue with SSI- monitor his trend, and re-start Home insulin when appropriate * HTN- blood pressure is stable * He is stable for transition out of the ICU * Prognosis is guarded, discussed with his who understands .
[2018-11-24] MEDS: Amiodarone 200 MG TAB PO SCH ×3 (09:47→20:57)
[2018-11-24] MEDS: Levothyroxine Sodium 50 MCG TAB PO SCH (09:48)
[2018-11-24] MEDS: pyridOXINE 50 MG (B6) TAB PO SCH (09:48)
[2018-11-24] MEDS: Loratadine 10 MG TAB PO SCH (09:48)
[2018-11-24] MEDS: Atorvastatin Calcium 20 MG TAB PO SCH (09:48)
[2018-11-24] MEDS: Apixaban 2.5 MG TAB PO SCH ×2 (09:48→20:58)
[2018-11-24] MEDS: Digoxin 0.125 MG TAB PO SCH (09:49)
[2018-11-24] MEDS: Finasteride 5 MG TAB PO SCH (09:49)
[2018-11-24] MEDS: Donepezil HCl 10 MG TAB PO SCH (09:49)
[2018-11-24] MEDS: Cyanocobalamin (Vitamin B-12) 1,000 MCG TAB PO SCH (10:33)
[2018-11-24] MEDS: Potassium Chloride 20 MEQ in Premix Bag 1 BAG IVPB SCH ×2 (10:35→16:32)
[2018-11-24] MEDS ORDERED: Erythromycin Base 0.5% Oint 1 GM TUBE EA EYE SCH (10:45)
--- NOTE | 2018-11-24 13:26 | CON ---
DATE OF CONSULTATION: 11/24/2018 REASON FOR CONSULTATION: Ventricular tachycardia, severe congestive heart failure. HISTORY OF PRESENT ILLNESS: Mr. Owens is a very pleasant 83-year-old gentleman with history of severe systolic congestive heart failure, admitted with ventricular tachycardia repetitive last night. Mr. Owens has a very long cardiac history. Please see the previous notes concerning his coronary arteries, as well as progressively depressed left ventricular function. The patient has been in the hospital recently with intractable congestive heart failure. Ultimately, he will be released home. He cannot tolerate YARI inhibitors, could not tolerate angiotensin receptor blockers due to hypotension, cannot tolerate beta blockers due to hypotension. We gave him some Entresto but it may have caused some throat tightness, therefore, he cannot receive the Entresto. The patient had defibrillator discharging home and then here had repetitive ventricular tachycardia, ultimately responded to intravenous amiodarone. MEDICATIONS: For patient's medicines, please see nursing notes. ALLERGIES: CANNOT TAKE ANGIOTENSIN RECEPTOR BLOCKERS OR YARI INHIBITORS OR BETA BLOCKERS, ALL DUE TO HYPOTENSION. BLEEDING ON COUMADIN. OTHER PAST HISTORY: Atrial fibrillation. SOCIAL HISTORY: Extremely supportive . He does not use alcohol or tobacco. REVIEW OF SYSTEMS: CONSTITUTIONAL: Positive for weakness or fatigue. VISION: No changes. HEARING: No changes. PULMONARY: Positive for shortness of breath. CARDIAC: Positive for shortness of breath. GASTROINTESTINAL: No nausea, vomiting, or diarrhea. SKIN: No rashes. NEUROLOGIC: No unilateral weakness or numbness. PSYCHIATRIC: No unusual depression or anxiety. HEMATOLOGIC: No unusual bruising. GENITOURINARY: No burning with urination. PHYSICAL EXAMINATION: GENERAL: This is a chronically ill-appearing elderly gentleman, very frail-appearing, chronically ill. VITAL SIGNS: Blood pressure 112/58, pulse 70, it is regular. HEENT: Eyes, sclerae nonicteric. Mouth, mucous membranes moist. NECK: Supple. No lymphadenopathy. Lungs: Some expiratory wheezing. CARDIAC: Normal S1, normal S2. ABDOMEN: Soft and nontender. EXTREMITIES: Previous amputation in right lower extremity. No edema in the left. Chest x-ray shows cardiomegaly with pulmonary vascular congestion. PERTINENT LABORATORY DATA: The potassium last night was 3.8 and 3.3 this morning. Troponin 0.134, demand ischemia. ASSESSMENT: 1. Congestive heart failure, systolic, chronic. This remains in heart failure despite diuretics at home. He has taken torsemide 40 mg three times a day. 2. Previous defibrillator. 3. Ventricular tachycardia, ultimately responded to amiodarone. 4. Hypotension. 5. Hypokalemia. PLAN: 1. Replete potassium. He is given spironolactone. 2. Continue amiodarone loading. Need to keep him in the hospital until Tuesday. Prognosis is very poor. Current status is do not resuscitate. 3. Discussed again the patient's situation with the patient and his . They understand that this is due to progressive heart muscle weakness. Job ID: [id number]
--- NOTE | 2018-11-24 16:02 | PDOC.PULCN ---
Pulmonology Consult: HPI - Date of Consult Date: 11/24/18 Time: 11:30 - Consult Details Reason for Consult: ICU admission, ventricular arrythmia - History of Present Illness HPI: BEN CHOI is a 83 year-old M w/ PMH of HFrEF with last EF of <15% who presented after being found unresponsive at home. Pts AICD fired 3 times at home and an additional 5 times in the ER after arrival. He was started on an amio drip in ER per cardiology recs and his vent dysrrhythmia has resolved upon seeing pt. Pulmonology Consult: ROS - Review of Systems ROS unobtainable: due to mental status Cardiovascular: other (AICD fired). negative: chest pain Respiratory: negative: chest soreness, chest tightness, short of breath Pulmonology Consult: PMH Source: patient Past Medical History: HFrEF, DMII, HTN, HLD, CAD - Family History Family history: reviewed and not pertinent - Social History Smoking Status: Never smoker Alcohol Use: none Drug Use History: none Living Situation: independent Pulmonology Consult: Meds - Medications MAR Reviewed: Yes Medications: Current Medications Acetaminophen (Tylenol) 650 mg PO Q4H PRN PRN Reason: Headache/Fever/Mild Pain (1-3) Amiodarone HCl (Cordarone) 400 mg PO TID [facility] Last Admin: 11/24/18 15:08 Dose: 400 mg Apixaban (Eliquis) 2.5 mg PO BID [facility] Last Admin: 11/24/18 09:48 Dose: 2.5 mg Artificial Tears (Tears Naturale) 2 drop EA EYE Q4H PRN PRN Reason: Dry Eyes Atorvastatin Calcium (Lipitor) 20 mg PO DAILY [facility] Last Admin: 11/24/18 09:48 Dose: 20 mg Azelastine HCl (Azelastine) 1 ml NS BID PRN PRN Reason: Allergies Cyanocobalamin (Vitamin B-12) 1,000 mcg PO DAILY [facility] Last Admin: 11/24/18 10:33 Dose: 1,000 mcg Dextrose/Water (Dextrose 50%) 25 gm SLOW IVP PRN PRN PRN Reason: Hypoglycemia Digoxin (Lanoxin) 0.125 mg PO DAILY [facility] Last Admin: 11/24/18 09:49 Dose: 0.125 mg Donepezil HCl (Aricept) 10 mg PO DAILY [facility] Last Admin: 11/24/18 09:49 Dose: 10 mg Erythromycin (Erythromycin Base 0.5% Oint) 1 gm EA EYE BID [facility] Finasteride (Proscar) 5 mg PO DAILY [facility] Last Admin: 11/24/18 09:49 Dose: 5 mg Glucagon (Glucagon) 1 mg IM PRN PRN PRN Reason: Hypoglycemia Amiodarone HCl 450 mg/Miscellaneous Medication 1 each/ Dextrose/Water 259 mls @ 0 mls/hr IVPB INF [facility]; Protocol Last Admin: 11/24/18 04:38 Dose: 259 mls Dextrose/Water (D5w) 1,000 mls @ 0 mls/hr IV .Q0M PRN PRN Reason: Hypoglycemia Insulin Human Lispro (Humalog) 0 units SC .MILD SLIDING SCALE PRN PRN Reason: Mild Correctional Scale Levothyroxine Sodium (Synthroid) 50 mcg PO QAM [facility] Last Admin: 11/24/18 09:48 Dose: 50 mcg Loratadine (Claritin) 10 mg PO DAILY [facility] Last Admin: 11/24/18 09:48 Dose: 10 mg Ondansetron HCl (Zofran Odt) 4 mg PO Q6H PRN PRN Reason: Nausea/Vomiting Ondansetron HCl (Zofran) 4 mg IVP Q6H PRN PRN Reason: Nausea/Vomiting Potassium Chloride (K-Dur) 20 meq PO BID-[facility] Pyridoxine HCl (Vitamin B 6) 100 mg PO DAILY [facility] Last Admin: 11/24/18 09:48 Dose: 100 mg - Allergies Allergies/Adverse Reactions: Allergies Allergy/AdvReac Type Severity Reaction Status Date / Time YARI Inhibitors Allergy Mild Verified 11/24/18 02:17 ARB-Angiotensin Receptor Allergy Mild Verified 11/24/18 02:17 Antagonist Beta-Blockers Allergy Mild Verified 11/24/18 02:17 (Beta-Adrenergic Bloc Pulmonology Consult: PE - Physical Exam Constitutional: NAD HEENT: PERRLA, moist MMs, sclera anicteric Neck: no nodes, no JVD Cardiovascular: RRR, no significant murmur, no rub Respiratory: clear to auscultation anteriorly, clear to auscultation bilaterally. negative: accessory muscle use, decreased breath sounds, prolonged expiratory phase, rales, respiratory distress Gastrointestinal: soft, non-tender, no distention Deviation from normal: rt BKA Neurological: non-focal, moves all 4 limbs Pulmonology Consult: Results - Labs Result Diagrams: 11/24/18 04:12 11/28/18 04:57 Pulmonology Consult: A/P - Problem (1) Ventricular tachycardia Current Visit: Yes Code(s): I47.2 - VENTRICULAR TACHYCARDIA Status: Acute (2) Acute on chronic systolic (congestive) heart failure Current Visit: No Code(s): I50.23 - ACUTE ON CHRONIC SYSTOLIC (CONGESTIVE) HEART FAILURE Status: Acute (3) AICD (automatic cardioverter/defibrillator) present Current Visit: No Code(s): Z95.810 - PRESENCE OF AUTOMATIC (IMPLANTABLE) CARDIAC DEFIBRILLATOR Status: Chronic - Time Time: 50% of the time was spent in coordination of care (as documented) at patient's floor/unit and/or counseling patient. Time with Patient: greater than 50 minutes - Plan Plan: 1) vtach: responded to amiodarone, transition to oral medication and transition out of ICU 2) HFrEF: does not appear to be in acute exacerbation, manage per cards Overall, pts tachyarrhythmia has responded to IV amiodarone, he will be transitioned to oral medication and is ok to be transferred out of ICU. Addendum - Attending - Attending Attestation Date/Time: 11/28/18 1410 I personally evaluated the patient and discussed the management with Dr. Saunders. I agree with the History, Examination, Assessment and Plan documented above with any addition or exceptions noted below. 70 minutes have been devoted to this patient in various activities. I personally reviewed all imaging studies and laboratory data noted within this document. For fifty percent of this time, I was interacting with the patient at the bedside or coordinating care with the care team. For the remainder of the time I was immediately available to the patient in the hospital unit.
[2018-11-24] MEDS: HumaLOG 300 UNITS/3 ML VIAL SC PRN (16:11)
[2018-11-24] MEDS: Potassium Chloride 20 MEQ TAB PO SCH (16:14)
[2018-11-24] MEDS: Erythromycin Base 0.5% Oint 1 GM TUBE EA EYE SCH (21:08)
[2018-11-24] MEDS: Artificial Tears 18 DROP/0.9 ML EA EYE PRN (21:09)
[2018-11-25] MEDS ORDERED: Lorazepam 0.5 MG TAB PO PRN (02:39)
[2018-11-25 09:24] LABS: Anion Gap 13 mmol/L (10-20); BUN (Urea Nitrogen) 46 mg/dL (8.4-25.7); Calc. Creatinine Clearance 52 mL/min (70-130); Calcium 8.4 mg/dL (7.8-10.44); Carbon Dioxide 35 mmol/L (23-31); Chloride 92 mmol/L (98-107); Estimated GFR-MDRD 62; Glucose 176 mg/dL (83-110); Potassium 3.8 mmol/L (3.5-5.1); Sodium 136 mmol/L (136-145)
[2018-11-25] MEDS: Levothyroxine Sodium 50 MCG TAB PO SCH (09:48)
[2018-11-25] MEDS: Finasteride 5 MG TAB PO SCH (10:09)
[2018-11-25] MEDS: Apixaban 2.5 MG TAB PO SCH ×2 (10:09→20:08)
[2018-11-25] MEDS: Digoxin 0.125 MG TAB PO SCH (10:09)
[2018-11-25] MEDS: Amiodarone 200 MG TAB PO SCH ×3 (10:10→20:08)
[2018-11-25] MEDS: Cyanocobalamin (Vitamin B-12) 1,000 MCG TAB PO SCH (10:12)
[2018-11-25] MEDS: pyridOXINE 50 MG (B6) TAB PO SCH (10:12)
[2018-11-25] MEDS: Atorvastatin Calcium 20 MG TAB PO SCH (10:12)
[2018-11-25] MEDS: Loratadine 10 MG TAB PO SCH (10:13)
[2018-11-25] MEDS: Donepezil HCl 10 MG TAB PO SCH (10:13)
[2018-11-25] MEDS: Potassium Chloride 20 MEQ TAB PO SCH ×2 (10:13→18:28)
[2018-11-25] MEDS: Erythromycin Base 0.5% Oint 1 GM TUBE EA EYE SCH ×2 (10:24→20:13)
--- NOTE | 2018-11-25 11:52 | PDOC.PN ---
- Subjective Encounter Start Date: 11/25/18 Encounter Start Time: 11:51 Mr. Owens was seen today in follow-up of Ventricular Tachycardia. He does not have any complaints today. He says he feels very weak. - Objective Resuscitation Status - Order Detail: 11/23/18 21:58 Resuscitation Status Routine Resuscitation Status: DNAR: NO Resuscitation Discussed with: as verified by Er physician MEMO Reviewed: Yes Vital Signs & Weight: Vital Signs (12 hours) Temp Pulse Resp BP Pulse Ox 11/25/18 10:09 73 11/25/18 08:35 97.4 F L 73 18 123/64 95 11/25/18 03:35 97.9 F 69 19 119/65 97 11/25/18 02:58 72 22 H 91 L 11/25/18 00:22 96 Weight Admit Weight 167 lb Weight 167 lb 8.821 oz Most Recent Monitor Data Heart Rate from ECG 70 NIBP 108/59 NIBP BP-Mean 75 Respiration from ECG 21 SpO2 96 I&O: 11/24/18 11/25/18 11/26/18 06:59 06:59 06:59 Intake Total 496 1234 Output Total 0 1050 Balance 496 184 Result Diagrams: 11/24/18 04:12 11/25/18 08:42 Additional Labs: Accuchecks 11/25/18 11/25/18 11/24/18 11:06 05:44 20:13 POC Glucose 136 H 167 H 158 H 11/24/18 16:03 POC Glucose 217 H Phys Exam - Physical Examination HEENT: PERRLA Respiratory: no wheezing + rhonchi, no rales, Cardiovascular: RRR, no significant murmur, no rub Gastrointestinal: soft, non-tender, no distention, positive bowel sounds Musculoskeletal: no edema Dx/Plan (1) Ventricular tachycardia Code(s): I47.2 - VENTRICULAR TACHYCARDIA Status: Acute (2) Acute on chronic systolic (congestive) heart failure Code(s): I50.23 - ACUTE ON CHRONIC SYSTOLIC (CONGESTIVE) HEART FAILURE Status : Acute Comment: ef of 15% with mod mitral regurg and severe pulm htn (3) AICD (automatic cardioverter/defibrillator) present Code(s): Z95.810 - PRESENCE OF AUTOMATIC (IMPLANTABLE) CARDIAC DEFIBRILLATOR Status: Chronic (4) Diabetes mellitus type 2 Code(s): E11.9 - TYPE 2 DIABETES MELLITUS WITHOUT COMPLICATIONS Status: Chronic (5) HYPERTENSION Status: Chronic - Plan * Ventricular Tachycardia- improved with Amiodarone * Chronic systolic heart failure- compensated * HTN- blood pressure is stable * DM- blood glucose is stable.
--- NOTE | 2018-11-25 15:21 | PDOC.CTH ---
Cardiology Progress Note - Subjective He has no new complaints. He states his breathing is better. - Objective Vital Signs Temp Pulse Resp BP Pulse Ox 11/25/18 10:09 73 11/25/18 08:35 97.4 F L 73 18 123/64 95 11/25/18 03:35 97.9 F 69 19 119/65 97 Admit Weight 167 lb Weight 167 lb 8.821 oz 11/24/18 11/25/18 11/26/18 06:59 06:59 06:59 Intake Total 496 1234 Output Total 0 1050 Balance 496 184 - Physical Examination General/Neuro: alert & oriented x3, NAD Neck: no JVD present Lungs: other: (Bilat crackles at bases. ) Heart: RRR Abdomen: NT/ND Extremities: + edema B (1+) - Telemetry Telemetry Rhythm: Under afib, V paced. - Labs Result Diagrams: 11/24/18 04:12 11/25/18 08:42 Troponin/CKMB CK-MB (CK-2) 3.1 ng/mL (0-6.6) 11/23/18 20:05 Troponin I 0.134 ng/mL (< 0.028) H 11/24/18 02:07 - Assessment/Plan 1. Acute on chronic systolic heart failure. 2. AICD in place 3. VT on amiodarone 4. Hypokalemia, resolved. 5. Chronic afib PLAN: - On amiodarone load. Will stop IV amio and see how he does on PO load. - Continue to brea King
[2018-11-25] MEDS ORDERED: predniSONE 20 MG TAB PO SCH (19:00)
--- NOTE | 2018-11-25 19:05 | PRG ---
DATE OF SERVICE: 11/25/2018 SERVICE: Pulmonary Medicine. INTERVAL HISTORY: The patient is doing okay from respiratory standpoint. He is coughing almost continuously. He has a lot of rattle inside of his chest. He is bringing up yellow phlegm. Overnight, he did not have any ventricular tachycardia events. He says he is breathing comfortably. He is having a hard time with sleeping. It has been going on for a couple of days. He ends up having to sit up on the side of the bed. When he does this, he specifically denies having any shortness of breath, but the family says he is working hard to breathe when he does the spells. He got a dose of Ativan late last night. He had a little vomiting today. This was around the time of dinner. That being said, he denies being nauseated and does not want any medications for this. PHYSICAL EXAMINATION: VITAL SIGNS: Afebrile, pulse 69, blood pressure 122/51, respirations 18, and saturation 95% on 2L nasal cannula. GENERAL: The patient is awake and alert, in no apparent distress. LUNGS: Decent air entry. There is extensive rhonchi present. Prolonged expiratory phase is noted. No crackles. HEART: Normal rate. Regular. ABDOMEN: Soft, nontender, and nondistended. Bowel sounds are positive. MUSCULOSKELETAL: No cyanosis or clubbing. There is 2+ pitting in the left lower extremity, no pitting in the right stump. : No Joseph catheter. NEUROLOGIC: Grossly nonfocal. IMAGING STUDIES: Chest x-ray shows a right-sided pleural effusion and interstitial fullness. Johanny B lines are noted. No pulmonary vascular congestion is appreciated today on this film. ASSESSMENT: 1. Acute hypoxic respiratory failure. 2. Ventricular tachycardia status post multiple discharges of his automatic implantable cardioverter-defibrillator. 3. Chronic obstructive pulmonary disease with acute exacerbation. 4. Acute on chronic systolic heart failure. DISCUSSION AND PLAN: The patient is doing fine from respiratory standpoint. We will restart his torsemide and give him a p.r.n. dose of Ativan at night to see if this helps. We will initiate a brief 5-day course of steroids and antibiotics and I will schedule nebulized medications. Pulmonary will continue to follow along for the time being. Job ID: [id number] [facility]
[2018-11-25] MEDS: Amoxicillin/Potassium Clav 875 MG TAB PO SCH (20:10)
[2018-11-25] MEDS: Artificial Tears 18 DROP/0.9 ML EA EYE PRN (20:13)
[2018-11-25] MEDS: HumaLOG 300 UNITS/3 ML VIAL SC PRN (22:06)
[2018-11-25] MEDS: Lorazepam 0.5 MG TAB PO PRN (23:58)
[2018-11-26 05:36] LABS: Anion Gap 10 mmol/L (10-20); BUN (Urea Nitrogen) 51 mg/dL (8.4-25.7); Calc. Creatinine Clearance 55 mL/min (70-130); Calcium 8.3 mg/dL (7.8-10.44); Carbon Dioxide 36 mmol/L (23-31); Chloride 92 mmol/L (98-107); Estimated GFR-MDRD 65; Glucose 192 mg/dL (83-110); Magnesium 1.7 mg/dL (1.6-2.6); Potassium 3.7 mmol/L (3.5-5.1); Sodium 134 mmol/L (136-145)
[2018-11-26] MEDS: pyridOXINE 50 MG (B6) TAB PO SCH (08:41)
[2018-11-26] MEDS: Amoxicillin/Potassium Clav 875 MG TAB PO SCH ×2 (08:41→20:32)
[2018-11-26] MEDS: Potassium Chloride 20 MEQ TAB PO SCH ×2 (08:41→16:40)
[2018-11-26] MEDS: Torsemide 20 MG TAB PO SCH ×2 (08:42→14:52)
[2018-11-26] MEDS: Apixaban 2.5 MG TAB PO SCH ×2 (08:42→20:32)
[2018-11-26] MEDS: Digoxin 0.125 MG TAB PO SCH (08:42)
[2018-11-26] MEDS: Cyanocobalamin (Vitamin B-12) 1,000 MCG TAB PO SCH (08:43)
[2018-11-26] MEDS: Atorvastatin Calcium 20 MG TAB PO SCH (08:43)
[2018-11-26] MEDS: Amiodarone 200 MG TAB PO SCH ×3 (08:43→20:32)
[2018-11-26] MEDS: Levothyroxine Sodium 50 MCG TAB PO SCH (08:43)
[2018-11-26] MEDS: Donepezil HCl 10 MG TAB PO SCH (08:43)
[2018-11-26] MEDS: Loratadine 10 MG TAB PO SCH (08:43)
[2018-11-26] MEDS: predniSONE 20 MG TAB PO SCH (08:43)
[2018-11-26] MEDS: Finasteride 5 MG TAB PO SCH (08:43)
[2018-11-26] MEDS: HumaLOG 300 UNITS/3 ML VIAL SC PRN ×3 (08:44→17:46)
[2018-11-26] MEDS: Erythromycin Base 0.5% Oint 1 GM TUBE EA EYE SCH ×2 (10:10→20:33)
--- NOTE | 2018-11-26 12:06 | PDOC.PN ---
- Subjective Encounter Start Date: 11/26/18 Encounter Start Time: 12:04 Mr. Owens was seen today in follow-up of Ventricular Tachycardia. He appears extremely weak. He denies chest pain or difficulty breathing. - Objective Resuscitation Status - Order Detail: 11/23/18 21:58 Resuscitation Status Routine Resuscitation Status: DNAR: NO Resuscitation Discussed with: as verified by Er physician MEMO Reviewed: Yes Vital Signs & Weight: Vital Signs (12 hours) Temp Pulse Resp BP Pulse Ox 11/26/18 08:42 96 11/26/18 07:28 98.1 F 70 14 104/52 L 96 11/26/18 06:50 96 11/26/18 06:48 69 16 11/26/18 03:55 97.8 F 71 18 111/53 L 93 L Weight Admit Weight 167 lb Weight 167 lb 8.821 oz Most Recent Monitor Data Heart Rate from ECG 70 NIBP 108/59 NIBP BP-Mean 75 Respiration from ECG 21 SpO2 96 I&O: 11/25/18 11/26/18 11/27/18 06:59 06:59 06:59 Intake Total 1234 290 Output Total 1050 100 Balance 184 190 Result Diagrams: 11/24/18 04:12 11/26/18 04:31 Additional Labs: Accuchecks 11/26/18 11/26/18 11/25/18 10:43 05:39 20:29 POC Glucose 243 H 234 H 233 H 11/25/18 16:40 POC Glucose 166 H Phys Exam - Physical Examination HEENT: PERRLA Respiratory: no wheezing, no rales, no rhonchi, clear to auscultation bilateral Cardiovascular: RRR, no significant murmur, no rub Gastrointestinal: soft, non-tender, no distention, positive bowel sounds Musculoskeletal: edema present leg dressed Dx/Plan (1) Ventricular tachycardia Code(s): I47.2 - VENTRICULAR TACHYCARDIA Status: Acute (2) Acute on chronic systolic (congestive) heart failure Code(s): I50.23 - ACUTE ON CHRONIC SYSTOLIC (CONGESTIVE) HEART FAILURE Status : Acute Comment: ef of 15% with mod mitral regurg and severe pulm htn (3) AICD (automatic cardioverter/defibrillator) present Code(s): Z95.810 - PRESENCE OF AUTOMATIC (IMPLANTABLE) CARDIAC DEFIBRILLATOR Status: Chronic (4) Diabetes mellitus type 2 Code(s): E11.9 - TYPE 2 DIABETES MELLITUS WITHOUT COMPLICATIONS Status: Chronic (5) HYPERTENSION Status: Chronic - Plan * Ventricular Tachycardia- he has been in paced rhythm. Stable on Amiodarone * DM- blood glucose is a bit elevated- will re-start Lantus * Chronic systolic heart failure- - compensated. * HTN- blood pressure is low normal
--- NOTE | 2018-11-26 15:30 | PRG ---
DATE OF SERVICE: 11/26/2018 SERVICE: Pulmonary Medicine. INTERVAL HISTORY: The patient is doing really well from respiratory standpoint. He denied any more nausea. He is not having any shortness of breath. He continues to have a cough. He cannot bring up the sputum, but the cough is getting a little stronger. Denies any current fevers, chills, nausea, or vomiting. Otherwise, there has been no interval change to his condition. PHYSICAL EXAMINATION: VITAL SIGNS: Afebrile, pulse 78, blood pressure 109/54, respirations 16, and saturation 97% on 2 L nasal cannula. GENERAL: The patient is awake and alert, in no apparent distress. LUNGS: Rhonchi are present. There is a slightly prolonged expiratory phase, but no wheezing or crackles are appreciated. HEART: Normal rate regular. ABDOMEN: Soft, nontender, and nondistended. Bowel sounds are positive. MUSCULOSKELETAL: No cyanosis or clubbing. No pitting in the bilateral lower extremities. The right lower extremity is surgically absent. LABORATORY DATA: Sodium 134 and downtrending, chloride 92, bicarb 36 which is roughly at baseline. Basic metabolic profile is otherwise unremarkable. Magnesium 1.7. ASSESSMENT: 1. Acute hypoxic respiratory failure, improving. 2. Chronic obstructive pulmonary disease with acute exacerbation. 3. Ventricular tachycardia, status post AICD/defibrillator shocks. 4. Acute on chronic systolic heart failure, close to euvolemia. DISCUSSION AND PLAN: I will replace potassium and magnesium. The patient is doing absolutely fantastic from respiratory standpoint. He needs to complete 5 days of antibiotics and steroids. We will continue our breathing treatments. Pulmonary Critical Care will continue to follow along for the time being, but the patient is stable for transition out of the hospital from a purely respiratory perspective. Job ID: [id number]
[2018-11-26] MEDS ORDERED: Magnesium 2 GM/50 ML 2 GM in Premix Bag 1 BAG IVPB SCH (16:00)
--- NOTE | 2018-11-26 17:39 | PDOC.CTH ---
Cardiology Progress Note - Subjective No new issues. - Objective Vital Signs Temp Pulse Resp BP Pulse Ox 11/26/18 15:07 69 16 11/26/18 14:54 97.9 F 78 16 109/54 L 97 11/26/18 12:46 72 14 114/54 L 98 11/26/18 08:42 96 11/26/18 07:28 98.1 F 70 14 104/52 L 96 11/26/18 06:50 96 11/26/18 06:48 69 16 Admit Weight 167 lb Weight 167 lb 8.821 oz 11/25/18 11/26/18 11/27/18 06:59 06:59 06:59 Intake Total 1234 290 Output Total 1050 100 Balance 184 190 - Physical Examination General/Neuro: alert & oriented x3 Neck: no JVD present Lungs: unlabored respirations Heart: RRR Abdomen: NT/ND Extremities: + edema B (right BKAS, left 1+) - Telemetry Telemetry Rhythm: V paced. - Labs Result Diagrams: 11/24/18 04:12 11/26/18 04:31 Troponin/CKMB CK-MB (CK-2) 3.1 ng/mL (0-6.6) 11/23/18 20:05 Troponin I 0.134 ng/mL (< 0.028) H 11/24/18 02:07 - Assessment/Plan 1. Acute on chronic systolic heart failure. 2. AICD in place 3. VT on amiodarone 4. Hypokalemia, resolved. 5. Chronic afib PLAN: - On amiodarone load. - No VT since drip stopped. - Continue to diurese - Eliquis for CVA prophylaxis.
[2018-11-26] MEDS: Lorazepam 0.5 MG TAB PO PRN (20:32)
[2018-11-26] MEDS: Insulin Glargine 10 UNITS in Pre-Filled Syringe 1 EACH SC SCH (20:34)
[2018-11-26] MEDS ORDERED: Non-Formulary Item 1 EACH (Insulin Detemir [Levemir] 10 UNITS) SC SCH (21:00)
[2018-11-27 05:48] LABS: Anion Gap 12 mmol/L (10-20); BUN (Urea Nitrogen) 56 mg/dL (8.4-25.7); Calc. Creatinine Clearance 52 mL/min (70-130); Calcium 7.9 mg/dL (7.8-10.44); Carbon Dioxide 34 mmol/L (23-31); Chloride 91 mmol/L (98-107); Estimated GFR-MDRD 62; Glucose 176 mg/dL (83-110); Magnesium 1.7 mg/dL (1.6-2.6); Potassium 4.2 mmol/L (3.5-5.1); Sodium 133 mmol/L (136-145)
[2018-11-27] MEDS ORDERED: guaiFENesin ER 600 MG TAB PO SCH (09:00)
[2018-11-27] MEDS ORDERED: Metolazone 5 MG TAB PO SCH ×2 (09:45→11:45)
[2018-11-27] MEDS: predniSONE 20 MG TAB PO SCH (09:46)
[2018-11-27] MEDS: Potassium Chloride 20 MEQ TAB PO SCH ×2 (09:46→15:53)
[2018-11-27] MEDS: Torsemide 20 MG TAB PO SCH ×2 (09:47→15:53)
[2018-11-27] MEDS: Cyanocobalamin (Vitamin B-12) 1,000 MCG TAB PO SCH (09:47)
[2018-11-27] MEDS: Amoxicillin/Potassium Clav 875 MG TAB PO SCH ×2 (09:47→20:56)
[2018-11-27] MEDS: pyridOXINE 50 MG (B6) TAB PO SCH (09:47)
[2018-11-27] MEDS: Atorvastatin Calcium 20 MG TAB PO SCH (09:47)
[2018-11-27] MEDS: Loratadine 10 MG TAB PO SCH (09:47)
[2018-11-27] MEDS: Apixaban 2.5 MG TAB PO SCH ×2 (09:47→20:57)
[2018-11-27] MEDS: Donepezil HCl 10 MG TAB PO SCH (09:48)
[2018-11-27] MEDS: Levothyroxine Sodium 50 MCG TAB PO SCH (09:48)
[2018-11-27] MEDS: Finasteride 5 MG TAB PO SCH (09:48)
[2018-11-27] MEDS: Digoxin 0.125 MG TAB PO SCH (09:48)
[2018-11-27] MEDS: Erythromycin Base 0.5% Oint 1 GM TUBE EA EYE SCH ×2 (09:49→20:57)
--- NOTE | 2018-11-27 09:56 | PRG ---
DATE OF SERVICE: 11/27/2018 SUBJECTIVE: Mr. Owens has to sit up to breathe. He is uncomfortable trying to lay down. No chest pain. OBJECTIVE: VITAL SIGNS: His blood pressure is high for him 116/49 and pulse 70, it is paced on the monitor (biventricular). LUNGS: Clear. CARDIAC: Normal S1 and normal S2. ABDOMEN: Soft and nontender. EXTREMITIES: There is mild edema also in his arms. He has been lying flat. There is very little lower extremity edema. He has previous right below-knee amputation. ASSESSMENT: 1. Congestive heart failure, systolic, chronic, likely decompensated, unable to lay flat. 2. Ventricular tachycardia, improved on amiodarone. PLAN: 1. We will give him a dose of metolazone today. 2. Reduce amiodarone. 3. Hopefully home in a day or two. He is going to go to assisted living near [place]. I need a copy of the discharge summary to go with him, so the physicians there will be familiar with his medical problems. Job ID: [id number]
[2018-11-27] MEDS ORDERED: Amiodarone 200 MG TAB PO SCH (10:15)
--- NOTE | 2018-11-27 11:36 | PDOC.PN ---
- Subjective Encounter Start Date: 11/27/18 Encounter Start Time: 11:35 Mr. Owens was seen today in follow-up of Ventricular Tachycardia. He is extremely weak. His says he can barely talk. He has audible conjestion in her upper airway. - Objective Resuscitation Status - Order Detail: 11/23/18 21:58 Resuscitation Status Routine Resuscitation Status: DNAR: NO Resuscitation Discussed with: as verified by Er physician MAR Reviewed: Yes Vital Signs & Weight: Vital Signs (12 hours) Temp Pulse Resp BP Pulse Ox 11/27/18 09:48 63 11/27/18 08:26 96.7 F L 69 18 116/49 L 97 11/27/18 07:00 71 16 92 L 11/27/18 04:00 97.3 F L 70 18 112/55 L 95 11/27/18 02:09 95 11/27/18 00:20 70 12 11/27/18 00:00 98.5 F 70 17 113/55 L 97 Weight Admit Weight 167 lb Weight 167 lb 8.821 oz Most Recent Monitor Data Heart Rate from ECG 70 NIBP 108/59 NIBP BP-Mean 75 Respiration from ECG 21 SpO2 96 I&O: 11/26/18 11/27/18 11/28/18 06:59 06:59 06:59 Intake Total 290 1260 Output Total 100 Balance 190 1260 Result Diagrams: 11/24/18 04:12 11/27/18 04:40 Additional Labs: Accuchecks 11/27/18 11/27/18 11/26/18 10:53 05:34 20:35 POC Glucose 226 H 170 H 289 H 11/26/18 16:55 POC Glucose 324 H Phys Exam - Physical Examination HEENT: PERRLA Respiratory: no rales, wheezing present + rhonchi scattered Cardiovascular: RRR, no significant murmur, no rub Gastrointestinal: soft, non-tender, no distention, positive bowel sounds Musculoskeletal: edema present + erythema, chronic venous stasis changes Dx/Plan (1) Ventricular tachycardia Code(s): I47.2 - VENTRICULAR TACHYCARDIA Status: Acute (2) Acute on chronic systolic (congestive) heart failure Code(s): I50.23 - ACUTE ON CHRONIC SYSTOLIC (CONGESTIVE) HEART FAILURE Status : Acute Comment: ef of 15% with mod mitral regurg and severe pulm htn (3) AICD (automatic cardioverter/defibrillator) present Code(s): Z95.810 - PRESENCE OF AUTOMATIC (IMPLANTABLE) CARDIAC DEFIBRILLATOR Status: Chronic (4) Diabetes mellitus type 2 Code(s): E11.9 - TYPE 2 DIABETES MELLITUS WITHOUT COMPLICATIONS Status: Chronic (5) HYPERTENSION Status: Chronic - Plan * Ventricular Tachycardia- he has been placed on Amiodarone. * Acute on chronic systolic heart failure- he is a bit volume overloaded, and Dr. Iraheta has ordered a dose of Metolazone * DM- blood glucose is stable * HTN- blood pressure is stable * Severe weakness, and possible dysphagia- he cough and speech is very weak- speech therapy has been consulted * Severe muscular deconditioning- continue PT, and the plan is to place him in [facility] at discharge.
[2018-11-27] MEDS: HumaLOG 300 UNITS/3 ML VIAL SC PRN ×2 (12:27→17:42)
--- NOTE | 2018-11-27 14:54 | PRG ---
DATE OF SERVICE: 11/27/2018 SUBJECTIVE: Mr. Owens's events have been reviewed. OBJECTIVE: VITAL SIGNS: He is afebrile, heart rate is 60, respiratory rate is 16, oximetry is 99, blood pressure is 111/64. LUNGS: Remarkable for mild rhonchi that clears with coughing. HEART: Regular rhythm. ABDOMEN: Soft. LABORATORY DATA: Sodium 133, potassium 4.2, chloride 91, bicarb 34, BUN 56, creatinine 1.13. IMPRESSION: 1. History of recurrent pneumonias. He takes antibiotics, first week to 10 days of every month and this is eliminated. Hospitalizations for all practical purposes for quite some time. 2. Status post sudden cardiac . Cardioverted multiple times with defibrillator. 3. Advanced cardiomyopathy. 4. Dementia. 5. Do not resuscitate status. 6. Deconditioning. 7. Chronic atrial fibrillation. 8. Entresto intolerance. 9. Angiotensin receptor jian intolerance. 10. YARI inhibitor intolerance. 11. Beta-jian intolerance. 12. History of bleeding on Coumadin. He continues to be stable. His makes all the difference in the world old in his care. They are moving to [place] to be closer to their daughter. We will follow while he is in the hospital. Job ID: [id number]
[2018-11-27] MEDS ORDERED: Diabetic Tussin 200 MG/10 ML UDCUP PO PRN (19:52)
[2018-11-27] MEDS: Lorazepam 0.5 MG TAB PO PRN (20:56)
[2018-11-27] MEDS: Insulin Glargine 10 UNITS in Pre-Filled Syringe 1 EACH SC SCH (20:57)
[2018-11-27] MEDS: Amiodarone 200 MG TAB PO SCH (20:57)
[2018-11-28 05:38] LABS: Anion Gap 12 mmol/L (10-20); BUN (Urea Nitrogen) 58 mg/dL (8.4-25.7); Calc. Creatinine Clearance 49 mL/min (70-130); Carbon Dioxide 37 mmol/L (23-31); Chloride 89 mmol/L (98-107); Estimated GFR-MDRD 58; Glucose 235 mg/dL (83-110); Magnesium 1.7 mg/dL (1.6-2.6); Potassium 4.1 mmol/L (3.5-5.1); Sodium 134 mmol/L (136-145)
--- NOTE | 2018-11-28 09:59 | PRG ---
DATE OF SERVICE: 11/28/2018 SUBJECTIVE: Mr. Owens did have some confusion and disorientation last night. He also has voice is more hoarse. His breathing seems to improve. OBJECTIVE: VITAL SIGNS: Blood pressure 113/56, pulse 70, it is paced. LUNGS: Clear. CARDIAC: Normal S1, normal S2. ABDOMEN: Soft and nontender. EXTREMITIES: No edema. ASSESSMENT: 1. Congestive heart failure systolic chronic, improved from yesterday. 2. Ventricular tachycardia, stable. 3. Confusion and disorientation during this hospitalization, likely related to be chronically and then acutely ill in an unfamiliar situation. PLAN: Consideration for letting him be released tomorrow to go to a jail facility. We will do chest x-ray today to see if he is still in heart failure. Job ID: [id number]
[2018-11-28] MEDS: pyridOXINE 50 MG (B6) TAB PO SCH (10:01)
[2018-11-28] MEDS: predniSONE 20 MG TAB PO SCH (10:01)
[2018-11-28] MEDS: Potassium Chloride 20 MEQ TAB PO SCH ×2 (10:01→17:38)
[2018-11-28] MEDS: Amiodarone 200 MG TAB PO SCH ×3 (10:01→21:36)
[2018-11-28] MEDS: Atorvastatin Calcium 20 MG TAB PO SCH (10:02)
[2018-11-28] MEDS: Amoxicillin/Potassium Clav 875 MG TAB PO SCH ×2 (10:02→21:36)
[2018-11-28] MEDS: Levothyroxine Sodium 50 MCG TAB PO SCH (10:02)
[2018-11-28] MEDS: Digoxin 0.125 MG TAB PO SCH (10:02)
[2018-11-28] MEDS: Cyanocobalamin (Vitamin B-12) 1,000 MCG TAB PO SCH (10:02)
[2018-11-28] MEDS: Donepezil HCl 10 MG TAB PO SCH (10:02)
[2018-11-28] MEDS: Apixaban 2.5 MG TAB PO SCH ×2 (10:02→21:36)
[2018-11-28] MEDS: Loratadine 10 MG TAB PO SCH (10:03)
[2018-11-28] MEDS: Torsemide 20 MG TAB PO SCH ×2 (10:03→14:26)
[2018-11-28] MEDS: Finasteride 5 MG TAB PO SCH (10:03)
[2018-11-28] MEDS: Erythromycin Base 0.5% Oint 1 GM TUBE EA EYE SCH ×2 (10:03→21:37)
--- NOTE | 2018-11-28 10:35 | RAD ---
FCHEST FRONTAL VIEW: COMPARISON: 11/23/2018 INDICATION: CHF. FINDINGS: There is moderate volume bilateral pleural fluid with enlargement of cardiac silhouette and pulmonary vasculature. Left-sided AICD remains. Vascular calcification and osseous degenerative change present . IMPRESSION: Decompensated congestive heart failure with moderate bilateral pleural effusions and pulmonary edema. Recommend continued follow-up. Transcribed Date/Time: 11/28/2018 10:50 AM
--- NOTE | 2018-11-28 14:12 | PDOC.PN ---
- Subjective Encounter Start Date: 11/28/18 Encounter Start Time: 11:00 Subjective: awake, sitting in chair, at bedside -: is oriented well, has hoarse voice -: breathing better, ate his breakfast well - Objective Resuscitation Status - Order Detail: 11/23/18 21:58 Resuscitation Status Routine Resuscitation Status: DNAR: NO Resuscitation Discussed with: as verified by Er physician MEMO Reviewed: Yes Vital Signs & Weight: Vital Signs (12 hours) Temp Pulse Resp BP BP Pulse Ox 11/28/18 12:02 69 20 97 11/28/18 10:02 70 11/28/18 09:26 119/60 11/28/18 07:28 96 11/28/18 07:26 70 16 96 11/28/18 07:15 97.6 F 70 16 113/56 L 98 11/28/18 04:00 97.8 F 71 18 114/53 L 94 L Weight Admit Weight 167 lb Weight 167 lb 8.821 oz Most Recent Monitor Data Heart Rate from ECG 70 NIBP 108/59 NIBP BP-Mean 75 Respiration from ECG 21 SpO2 96 I&O: 11/27/18 11/28/18 11/29/18 06:59 06:59 06:59 Intake Total 1260 300 Balance 1260 300 Result Diagrams: 11/24/18 04:12 11/28/18 04:57 Additional Labs: Accuchecks 11/28/18 11/28/18 11/27/18 11:30 05:30 20:29 POC Glucose 162 H 200 H 271 H 11/27/18 16:59 POC Glucose 244 H Phys Exam - Physical Examination HEENT: PERRLA, moist MMs Neck: no JVD, supple Respiratory: no wheezing, no rales Cardiovascular: RRR, no significant murmur Gastrointestinal: soft, non-tender, positive bowel sounds scrotal edema+ Musculoskeletal: pulses present, edema present Neurological: non-focal, moves all 4 limbs Dx/Plan - Plan * . Review of Systems - Medications/Allergies Allergies/Adverse Reactions: Allergies Allergy/AdvReac Type Severity Reaction Status Date / Time YARI Inhibitors Allergy Mild Verified 11/24/18 02:17 ARB-Angiotensin Receptor Allergy Mild Verified 11/24/18 02:17 Antagonist Beta-Blockers Allergy Mild Verified 11/24/18 02:17 (Beta-Adrenergic Bloc Medications: Current Medications Acetaminophen (Tylenol) 650 mg PO Q4H PRN PRN Reason: Headache/Fever/Mild Pain (1-3) Albuterol/Ipratropium (Duoneb) 3 ml NEB Q6H PRN PRN Reason: SOB &/or Wheezing Last Admin: 11/25/18 16:49 Dose: 3 ml Albuterol/Ipratropium (Duoneb) 3 ml NEB [id number] [facility] Last Admin: 11/28/18 12:02 Dose: 3 ml Amiodarone HCl (Cordarone) 400 mg PO BID [facility] Last Admin: 11/28/18 10:01 Dose: 400 mg Amoxicillin/Clavulanate Potassium (Augmentin) 875 mg PO Q12HR [facility] Stop: 11/30/18 21:01 Last Admin: 11/28/18 10:02 Dose: 875 mg Apixaban (Eliquis) 2.5 mg PO BID [facility] Last Admin: 11/28/18 10:02 Dose: 2.5 mg Artificial Tears (Tears Naturale) 2 drop EA EYE Q4H PRN PRN Reason: Dry Eyes Last Admin: 11/25/18 20:13 Dose: 2 drop Atorvastatin Calcium (Lipitor) 20 mg PO DAILY [facility] Last Admin: 11/28/18 10:02 Dose: 20 mg Azelastine HCl (Azelastine) 1 ml NS BID PRN PRN Reason: Allergies Cyanocobalamin (Vitamin B-12) 1,000 mcg PO DAILY [facility] Last Admin: 11/28/18 10:02 Dose: 1,000 mcg Dextrose/Water (Dextrose 50%) 25 gm SLOW IVP PRN PRN PRN Reason: Hypoglycemia Digoxin (Lanoxin) 0.125 mg PO DAILY [facility] Last Admin: 11/28/18 10:02 Dose: 0.125 mg Donepezil HCl (Aricept) 10 mg PO DAILY [facility] Last Admin: 11/28/18 10:02 Dose: 10 mg Erythromycin (Erythromycin Base 0.5% Oint) 1 gm EA EYE BID [facility] Last Admin: 11/28/18 10:03 Dose: 1 gm Finasteride (Proscar) 5 mg PO DAILY [facility] Last Admin: 11/28/18 10:03 Dose: 5 mg Glucagon (Glucagon) 1 mg IM PRN PRN PRN Reason: Hypoglycemia Guaifenesin (Robitussin Sf) 400 mg PO Q4H PRN PRN Reason: Chest Congestion/Secretions Last Admin: 11/27/18 20:58 Dose: 400 mg Dextrose/Water (D5w) 1,000 mls @ 0 mls/hr IV .Q0M PRN PRN Reason: Hypoglycemia Insulin Glargine 10 units/ (Miscellaneous Medication) 0.1 mls @ 0 mls/hr SC [facility] Last Admin: 11/27/18 20:57 Dose: 0.1 mls Insulin Human Lispro (Humalog) 0 units SC .MILD SLIDING SCALE PRN PRN Reason: Mild Correctional Scale Last Admin: 11/27/18 17:42 Dose: 3 unit Levothyroxine Sodium (Synthroid) [facility] [place] Last Admin: 11/28/18 10:02 Dose: 50 mcg Loratadine (Claritin) 10 mg PO DAILY [facility] Last Admin: 11/28/18 10:03 Dose: 10 mg Lorazepam (Ativan) 0.5 mg PO Q4H PRN PRN Reason: Anxiety Last Admin: 11/27/18 20:56 Dose: 0.5 mg Ondansetron HCl (Zofran Odt) 4 mg PO Q6H PRN PRN Reason: Nausea/Vomiting Ondansetron HCl (Zofran) 4 mg IVP Q6H PRN PRN Reason: Nausea/Vomiting Potassium Chloride (K-Dur) 20 meq PO BID-[facility] Last Admin: 11/28/18 10:01 Dose: 20 meq Prednisone (Prednisone) 40 mg PO QA-[facility] Stop: 11/29/18 08:01 Last Admin: 11/28/18 10:01 Dose: 40 mg Pyridoxine HCl (Vitamin B 6) 100 mg PO DAILY [facility] Last Admin: 11/28/18 10:01 Dose: 100 mg Sodium Chloride (Flush - Normal Saline) 10 ml IVF Q12HR [facility] Last Admin: 11/28/18 10:04 Dose: 10 ml Sodium Chloride (Flush - Normal Saline) 10 ml IVF PRN PRN PRN Reason: Saline Flush Torsemide (Demadex) 40 mg PO 0900,1400 [facility] Last Admin: 11/28/18 10:03 Dose: 40 mg
--- NOTE | 2018-11-28 14:16 | PDOC.PN ---
- Subjective Encounter Start Date: 11/28/18 Encounter Start Time: 10:00 Subjective: sob is better, sitting in chair -: at bedside - Objective Resuscitation Status - Order Detail: 11/23/18 21:58 Resuscitation Status Routine Resuscitation Status: DNAR: NO Resuscitation Discussed with: as verified by Er physician MEMO Reviewed: Yes Vital Signs & Weight: Vital Signs (12 hours) Temp Pulse Resp BP BP Pulse Ox 11/28/18 12:02 69 20 97 11/28/18 10:02 70 11/28/18 09:26 119/60 11/28/18 08:00 98 11/28/18 07:28 96 11/28/18 07:26 70 16 96 11/28/18 07:15 97.6 F 70 16 113/56 L 98 11/28/18 04:00 97.8 F 71 18 114/53 L 94 L Weight Admit Weight 167 lb Weight 167 lb 8.821 oz Most Recent Monitor Data Heart Rate from ECG 70 NIBP 108/59 NIBP BP-Mean 75 Respiration from ECG 21 SpO2 96 I&O: 11/27/18 11/28/18 11/29/18 06:59 06:59 06:59 Intake Total 1260 300 Balance 1260 300 Result Diagrams: 11/24/18 04:12 11/28/18 04:57 Additional Labs: Accuchecks 11/28/18 11/28/18 11/27/18 11:30 05:30 20:29 POC Glucose 162 H 200 H 271 H 11/27/18 16:59 POC Glucose 244 H Dx/Plan (1) Ventricular tachycardia Code(s): I47.2 - VENTRICULAR TACHYCARDIA Status: Acute (2) Acute on chronic systolic (congestive) heart failure Code(s): I50.23 - ACUTE ON CHRONIC SYSTOLIC (CONGESTIVE) HEART FAILURE Status : Acute Comment: ef of 15% with mod mitral regurg and severe pulm htn (3) AICD (automatic cardioverter/defibrillator) present Code(s): Z95.810 - PRESENCE OF AUTOMATIC (IMPLANTABLE) CARDIAC DEFIBRILLATOR Status: Chronic (4) Anemia Code(s): D64.9 - ANEMIA, UNSPECIFIED Status: Chronic (5) Atrial fibrillation Code(s): I48.91 - UNSPECIFIED ATRIAL FIBRILLATION Status: Chronic Comment: paroxysmal (6) Diabetes mellitus type 2 Code(s): E11.9 - TYPE 2 DIABETES MELLITUS WITHOUT COMPLICATIONS Status: Chronic (7) Dyslipidemia Code(s): E78.5 - HYPERLIPIDEMIA, UNSPECIFIED Status: Chronic (8) HYPERTENSION Status: Chronic (9) Hypothyroidism Code(s): E03.9 - HYPOTHYROIDISM, UNSPECIFIED Status: Chronic Qualifiers: Hypothyroidism type: unspecified Qualified Code(s): E03.9 - Hypothyroidism , unspecified (10) PAD (peripheral artery disease) Code(s): I73.9 - PERIPHERAL VASCULAR DISEASE, UNSPECIFIED Status: Chronic Comment: h/o R BKA (11) LITO (acute kidney injury) Code(s): N17.9 - ACUTE KIDNEY FAILURE, UNSPECIFIED Status: Acute (12) Acute encephalopathy Code(s): G93.40 - ENCEPHALOPATHY, UNSPECIFIED Status: Resolved - Plan is back at his baseline cognitive function -: diuresed well yesterday, on demadex 40mg bid -: continue amiodarone, eliquis, dig, lipitor, proscar, lantus -: dc plan likely in am if stable -: d/w pt and at bedside * . Review of Systems - Medications/Allergies Allergies/Adverse Reactions: Allergies Allergy/AdvReac Type Severity Reaction Status Date / Time YARI Inhibitors Allergy Mild Verified 11/24/18 02:17 ARB-Angiotensin Receptor Allergy Mild Verified 11/24/18 02:17 Antagonist Beta-Blockers Allergy Mild Verified 11/24/18 02:17 (Beta-Adrenergic Bloc Medications: Current Medications Acetaminophen (Tylenol) 650 mg PO Q4H PRN PRN Reason: Headache/Fever/Mild Pain (1-3) Last Admin: 11/28/18 14:27 Dose: 650 mg Albuterol/Ipratropium (Duoneb) 3 ml NEB Q6H PRN PRN Reason: SOB &/or Wheezing Last Admin: 11/25/18 16:49 Dose: 3 ml Albuterol/Ipratropium (Duoneb) 3 ml NEB [id number] [facility] Last Admin: 11/28/18 12:02 Dose: 3 ml Amiodarone HCl (Cordarone) 400 mg PO BID [facility] Last Admin: 11/28/18 10:01 Dose: 400 mg Amoxicillin/Clavulanate Potassium (Augmentin) 875 mg PO Q12HR [facility] Stop: 11/30/18 21:01 Last Admin: 11/28/18 10:02 Dose: 875 mg Apixaban (Eliquis) 2.5 mg PO BID [facility] Last Admin: 11/28/18 10:02 Dose: 2.5 mg Artificial Tears (Tears Naturale) 2 drop EA EYE Q4H PRN PRN Reason: Dry Eyes Last Admin: 11/25/18 20:13 Dose: 2 drop Atorvastatin Calcium (Lipitor) 20 mg PO DAILY [facility] Last Admin: 11/28/18 10:02 Dose: 20 mg Azelastine HCl (Azelastine) 1 ml NS BID PRN PRN Reason: Allergies Cyanocobalamin (Vitamin B-12) 1,000 mcg PO DAILY [facility] Last Admin: 11/28/18 10:02 Dose: 1,000 mcg Dextrose/Water (Dextrose 50%) 25 gm SLOW IVP PRN PRN PRN Reason: Hypoglycemia Digoxin (Lanoxin) 0.125 mg PO DAILY [facility] Last Admin: 11/28/18 10:02 Dose: 0.125 mg Donepezil HCl (Aricept) 10 mg PO DAILY [facility] Last Admin: 11/28/18 10:02 Dose: 10 mg Erythromycin (Erythromycin Base 0.5% Oint) 1 gm EA EYE BID [facility] Last Admin: 11/28/18 10:03 Dose: 1 gm Finasteride (Proscar) 5 mg PO DAILY [facility] Last Admin: 11/28/18 10:03 Dose: 5 mg Glucagon (Glucagon) 1 mg IM PRN PRN PRN Reason: Hypoglycemia Guaifenesin (Robitussin Sf) 400 mg PO Q4H PRN PRN Reason: Chest Congestion/Secretions Last Admin: 11/27/18 20:58 Dose: 400 mg Dextrose/Water (D5w) 1,000 mls @ 0 mls/hr IV .Q0M PRN PRN Reason: Hypoglycemia Insulin Glargine 10 units/ (Miscellaneous Medication) 0.1 mls @ 0 mls/hr SC [facility] Last Admin: 11/27/18 20:57 Dose: 0.1 mls Insulin Human Lispro (Humalog) 0 units SC .MILD SLIDING SCALE PRN PRN Reason: Mild Correctional Scale Last Admin: 11/27/18 17:42 Dose: 3 unit Levothyroxine Sodium (Synthroid) 50 mcg PO QAM [facility] Last Admin: 11/28/18 10:02 Dose: 50 mcg Loratadine (Claritin) 10 mg PO DAILY [facility] Last Admin: 11/28/18 10:03 Dose: 10 mg Lorazepam (Ativan) 0.5 mg PO Q4H PRN PRN Reason: Anxiety Last Admin: 11/27/18 20:56 Dose: 0.5 mg Ondansetron HCl (Zofran Odt) 4 mg PO Q6H PRN PRN Reason: Nausea/Vomiting Ondansetron HCl (Zofran) 4 mg IVP Q6H PRN PRN Reason: Nausea/Vomiting Potassium Chloride (K-Dur) 20 meq PO BID-[facility] Last Admin: 11/28/18 10:01 Dose: 20 meq Prednisone (Prednisone) 40 mg PO QAM-[facility] Stop: 11/29/18 08:01 Last Admin: 11/28/18 10:01 Dose: 40 mg Pyridoxine HCl (Vitamin B 6) 100 mg PO DAILY [facility] Last Admin: 11/28/18 10:01 Dose: 100 mg Sodium Chloride (Flush - Normal Saline) 10 ml IVF Q12HR [facility] Last Admin: 11/28/18 10:04 Dose: 10 ml Sodium Chloride (Flush - Normal Saline) 10 ml IVF PRN PRN PRN Reason: Saline Flush Torsemide (Demadex) 40 mg PO 0900,1400 [facility] Last Admin: 11/28/18 14:26 Dose: 40 mg
--- NOTE | 2018-11-28 14:33 | PQF ---
CLINICAL DOCUMENTATION IMPROVEMENT CLARIFICATION FORM: ICD-10 Updated PLEASE DO AN ADDENDUM TO THE PROGRESS NOTE WITH ANY DOCUMENTATION UPDATES OR ADDITIONS AND CARRY THROUGH TO DC SUMMARY. THANK YOU. DATE: 11/28/18 ATTN: DR. WANG Please exercise your independent, professional judgment in responding to the clarification form. Clinical indicators are provided on the bottom of this form for your review Please check appropriate box(s): [ x ] Encephalopathy: Type: [ x] Acute [ ] Subacute [ ] Chronic Etiology: [ ] Hypertensive [ x] Metabolic [ ] Toxic [ ] Hepatic with Coma [ ] Hepatic w/o Coma [ ] Hypoxic [ ] Septic [ ] Drug induced: [ ] Unspecified [ ] in the setting of underlying dementia [ ] Other (please specify) [ ] Transient Alteration of Awareness [ ] Other diagnosis [ ] Unable to determine In addition, please specify: Present on Admission (POA): [x ] Yes [ ] No [ ] Unable to determine For continuity of documentation, please document condition throughout progress notes and discharge summary. Thank You. CLINICAL INDICATORS - SIGNS / SYMPTOMS / LABS 11/28 PROGRESS NOTE: "ACUTE ENCEPHALOPATHY" NURSING NOTE 11/24: "PT STILL CONFUSED WHY HE IS IN THE HOSPITAL..." RISKS: ADVANCED AGE H/O RECURRENT PNEUMONIAS DEMENTIA TREATMENT: REORIENTATION PER NURSING STAFF PO AUGMENTIN (11/24-PRESENT) ARICEPT (11/24-PRESENT) PO ATIVAN (10/29-PRESENT) SAP Director Index [employer] Winform Viewer (This form is maintained as a part of the permanent medical record) 2014 [employer]. All Rights Reserved RICCO [email or web address] Office: [phone] [facility]
--- NOTE | 2018-11-28 16:21 | PRG ---
DATE OF SERVICE: 11/28/2018 SUBJECTIVE: Jem Owens is doing reasonably well. He is having trouble with his secretions, but when encouraged to cough, he clears his throat. OBJECTIVE: VITAL SIGNS: He is afebrile. Heart rate is 70, respiratory rate 16, O2 is 96%, blood pressure 131/57. LUNGS: Clear after he coughs. HEART: Regular rhythm. S1 and S2 are normal. ABDOMEN: Soft. He has had no recurrent ventricular tachycardia. LABORATORY DATA: No new lab except for electrolytes, sodium is 134, potassium 4.1, chloride 89, bicarb 37, BUN , creatinine 1.2, glucose . IMPRESSION: 1. Advanced dementia. 2. Recurrent tracheobronchial infections and pneumonia secondary to aspiration, controlled with rotating antibiotics. 3. Ventricular tachycardia with multiple defibrillations by his AICD prior to admission, now on amiodarone and clinically stable. 4. Severe cardiomyopathy. 5. Advanced deconditioning. I had a long discussion with his . For the first time, I believe he is getting closer to passing. His has the same feeling. He is currently weaker than I have ever seen him and I suspect he will not survive a year once he gets over the [place]. I reviewed today's chest radiograph. He still has bilateral pleural effusions. I reviewed his intake and output. It is not accurate since he has no Joseph catheter. His weights have not been recorded since the . We will continue to see him as long as he is living in the area, but I think he is moving very shortly. We will sign off. Job ID: [id number]
[2018-11-28] MEDS: HumaLOG 300 UNITS/3 ML VIAL SC PRN (17:38)
[2018-11-28] MEDS: Lorazepam 0.5 MG TAB PO PRN (21:36)
[2018-11-28] MEDS: Insulin Glargine 10 UNITS in Pre-Filled Syringe 1 EACH SC SCH (21:36)
[2018-11-29 07:29] LABS: BUN (Urea Nitrogen) 50 mg/dL (8.4-25.7); Calc. Creatinine Clearance 60 mL/min (70-130); Calcium 8.3 mg/dL (7.8-10.44); Estimated GFR-MDRD 73; Glucose 136 mg/dL (83-110); Magnesium 1.5 mg/dL (1.6-2.6)
[2018-11-29 07:38] LABS: Anion Gap 13 mmol/L (10-20); Carbon Dioxide 40 mmol/L (23-31); Chloride 87 mmol/L (98-107); Potassium 3.8 mmol/L (3.5-5.1); Sodium 136 mmol/L (136-145)
[2018-11-29] MEDS ORDERED: Metolazone 5 MG TAB PO SCH (08:45)
[2018-11-29] MEDS: Erythromycin Base 0.5% Oint 1 GM TUBE EA EYE SCH ×2 (10:14→20:44)
[2018-11-29] MEDS: Donepezil HCl 10 MG TAB PO SCH (10:16)
[2018-11-29] MEDS: Atorvastatin Calcium 20 MG TAB PO SCH (10:16)
[2018-11-29] MEDS: Torsemide 20 MG TAB PO SCH ×2 (10:17→18:03)
[2018-11-29] MEDS: predniSONE 20 MG TAB PO SCH (10:19)
[2018-11-29] MEDS: Finasteride 5 MG TAB PO SCH (10:19)
[2018-11-29] MEDS: Loratadine 10 MG TAB PO SCH (10:20)
[2018-11-29] MEDS: pyridOXINE 50 MG (B6) TAB PO SCH (10:20)
[2018-11-29] MEDS: Levothyroxine Sodium 50 MCG TAB PO SCH (10:20)
[2018-11-29] MEDS: Apixaban 2.5 MG TAB PO SCH ×2 (10:20→20:44)
[2018-11-29] MEDS: Digoxin 0.125 MG TAB PO SCH (10:20)
[2018-11-29] MEDS: Magnesium Oxide 400 MG TAB PO SCH (10:21)
[2018-11-29] MEDS: Amoxicillin/Potassium Clav 875 MG TAB PO SCH ×2 (10:21→20:44)
[2018-11-29] MEDS: Potassium Chloride 20 MEQ TAB PO SCH ×2 (10:21→18:03)
[2018-11-29] MEDS: Cyanocobalamin (Vitamin B-12) 1,000 MCG TAB PO SCH (10:21)
--- NOTE | 2018-11-29 13:16 | PDOC.PN ---
- Subjective Encounter Start Date: 11/29/18 Encounter Start Time: 11:15 Subjective: awake, no sob -: swelling in legs have come down - Objective Resuscitation Status - Order Detail: 11/23/18 21:58 Resuscitation Status Routine Resuscitation Status: DNAR: NO Resuscitation Discussed with: as verified by Er physician MEMO Reviewed: Yes Vital Signs & Weight: Vital Signs (12 hours) Temp Pulse Pulse Pulse Resp BP BP 11/29/18 12:45 70 16 11/29/18 11:02 95 70 118/58 L 116/54 L 11/29/18 10:20 70 11/29/18 08:00 11/29/18 07:50 97.5 F L 70 16 11/29/18 06:48 11/29/18 06:46 70 16 11/29/18 04:00 72 11/29/18 02:11 BP Pulse Ox Pulse Ox 11/29/18 12:45 98 11/29/18 11:02 97 11/29/18 10:20 11/29/18 08:00 98 11/29/18 07:50 110/53 L 98 11/29/18 06:48 98 11/29/18 06:46 98 11/29/18 04:00 107/52 L 11/29/18 02:11 95 Weight Admit Weight 167 lb 8.821 oz Weight 167 lb 8.821 oz Most Recent Monitor Data Heart Rate from ECG 70 NIBP 108/59 NIBP BP-Mean 75 Respiration from ECG 21 SpO2 96 I&O: 11/28/18 11/29/18 11/30/18 06:59 06:59 06:59 Intake Total 300 200 Balance 300 200 Result Diagrams: 11/24/18 04:12 11/29/18 06:12 Additional Labs: Accuchecks 11/29/18 11/28/18 11/28/18 05:55 20:42 16:38 POC Glucose 147 H 286 H 302 H Phys Exam - Physical Examination HEENT: PERRLA, sclera anicteric Neck: no JVD, supple Respiratory: no wheezing, no rales Cardiovascular: RRR, no significant murmur Gastrointestinal: soft, non-tender, positive bowel sounds Musculoskeletal: pulses present, edema present bka+ Neurological: non-focal, moves all 4 limbs Dx/Plan (1) Ventricular tachycardia Code(s): I47.2 - VENTRICULAR TACHYCARDIA Status: Acute Comment: has AICD (2) Acute on chronic systolic (congestive) heart failure Code(s): I50.23 - ACUTE ON CHRONIC SYSTOLIC (CONGESTIVE) HEART FAILURE Status : Acute Comment: ef of 15% with mod mitral regurg and severe pulm htn (3) AICD (automatic cardioverter/defibrillator) present Code(s): Z95.810 - PRESENCE OF AUTOMATIC (IMPLANTABLE) CARDIAC DEFIBRILLATOR Status: Chronic (4) Anemia Code(s): D64.9 - ANEMIA, UNSPECIFIED Status: Chronic (5) Atrial fibrillation Code(s): I48.91 - UNSPECIFIED ATRIAL FIBRILLATION Status: Chronic Comment: paroxysmal (6) Diabetes mellitus type 2 Code(s): E11.9 - TYPE 2 DIABETES MELLITUS WITHOUT COMPLICATIONS Status: Chronic (7) Dyslipidemia Code(s): E78.5 - HYPERLIPIDEMIA, UNSPECIFIED Status: Chronic (8) HYPERTENSION Status: Chronic (9) Hypothyroidism Code(s): E03.9 - HYPOTHYROIDISM, UNSPECIFIED Status: Chronic Qualifiers: Hypothyroidism type: unspecified Qualified Code(s): E03.9 - Hypothyroidism , unspecified (10) PAD (peripheral artery disease) Code(s): I73.9 - PERIPHERAL VASCULAR DISEASE, UNSPECIFIED Status: Chronic Comment: h/o R BKA (11) LITO (acute kidney injury) Code(s): N17.9 - ACUTE KIDNEY FAILURE, UNSPECIFIED Status: Acute (12) Acute encephalopathy Code(s): G93.40 - ENCEPHALOPATHY, UNSPECIFIED Status: Resolved - Plan amiodarone 200mg bid x 10 days then daily thereafter -: is cleared by for discharge -: d/w and pt at bedside, will eventually transition to hospice later -: continue eliquis, dig, lipitor, aricept, lantus -: is on demadex bid, creatinine is at baseline * . Review of Systems - Medications/Allergies Allergies/Adverse Reactions: Allergies Allergy/AdvReac Type Severity Reaction Status Date / Time YARI Inhibitors Allergy Mild Verified 11/24/18 02:17 ARB-Angiotensin Receptor Allergy Mild Verified 11/24/18 02:17 Antagonist Beta-Blockers Allergy Mild Verified 11/24/18 02:17 (Beta-Adrenergic Bloc Medications: Current Medications Acetaminophen (Tylenol) 650 mg PO Q4H PRN PRN Reason: Headache/Fever/Mild Pain (1-3) Last Admin: 11/28/18 14:27 Dose: 650 mg Albuterol/Ipratropium (Duoneb) 3 ml NEB Q6H PRN PRN Reason: SOB &/or Wheezing Last Admin: 11/25/18 16:49 Dose: 3 ml Albuterol/Ipratropium (Duoneb) 3 ml NEB [id number] [facility] Last Admin: 11/29/18 12:45 Dose: 3 ml Amiodarone HCl (Cordarone) 200 mg PO BID [facility] Amoxicillin/Clavulanate Potassium (Augmentin) 875 mg PO Q12HR [facility] Stop: 11/30/18 21:01 Last Admin: 11/29/18 10:21 Dose: 875 mg Apixaban (Eliquis) 2.5 mg PO BID [facility] Last Admin: 11/29/18 10:20 Dose: 2.5 mg Artificial Tears (Tears Naturale) 2 drop EA EYE Q4H PRN PRN Reason: Dry Eyes Last Admin: 11/25/18 20:13 Dose: 2 drop Atorvastatin Calcium (Lipitor) 20 mg PO DAILY [facility] Last Admin: 11/29/18 10:16 Dose: 20 mg Azelastine HCl (Azelastine) 1 ml NS BID PRN PRN Reason: Allergies Cyanocobalamin (Vitamin B-12) 1,000 mcg PO DAILY [facility] Last Admin: 11/29/18 10:21 Dose: 1,000 mcg Dextrose/Water (Dextrose 50%) 25 gm SLOW IVP PRN PRN PRN Reason: Hypoglycemia Digoxin (Lanoxin) 0.125 mg PO DAILY [facility] Last Admin: 11/29/18 10:20 Dose: 0.125 mg Donepezil HCl (Aricept) 10 mg PO DAILY [facility] Last Admin: 11/29/18 10:16 Dose: 10 mg Erythromycin (Erythromycin Base 0.5% Oint) 1 gm EA EYE BID [facility] Last Admin: 11/29/18 10:14 Dose: 1 gm Finasteride (Proscar) 5 mg PO DAILY [facility] Last Admin: 11/29/18 10:19 Dose: 5 mg Glucagon (Glucagon) 1 mg IM PRN PRN PRN Reason: Hypoglycemia Guaifenesin (Robitussin Sf) 400 mg PO Q4H PRN PRN Reason: Chest Congestion/Secretions Last Admin: 11/27/18 20:58 Dose: 400 mg Dextrose/Water (D5w) 1,000 mls @ 0 mls/hr IV .Q0M PRN PRN Reason: Hypoglycemia Insulin Glargine 10 units/ (Miscellaneous Medication) 0.1 mls @ 0 mls/hr SC HS [facility] Last Admin: 11/28/18 21:36 Dose: 0.1 mls Insulin Human Lispro (Humalog) 0 units SC .MILD SLIDING SCALE PRN PRN Reason: Mild Correctional Scale Last Admin: 11/28/18 17:38 Dose: 5 unit Levothyroxine Sodium (Synthroid) 50 mcg PO QAM [facility] Last Admin: 11/29/18 10:20 Dose: 50 mcg Loratadine (Claritin) 10 mg PO DAILY [facility] Last Admin: 11/29/18 10:20 Dose: 10 mg Lorazepam (Ativan) 0.5 mg PO Q4H PRN PRN Reason: Anxiety Last Admin: 11/28/18 21:36 Dose: 0.5 mg Magnesium Oxide (Magnesium Oxide) 400 mg PO DAILY [facility] Last Admin: 11/29/18 10:21 Dose: 400 mg Ondansetron HCl (Zofran Odt) 4 mg PO Q6H PRN PRN Reason: Nausea/Vomiting Ondansetron HCl (Zofran) 4 mg IVP Q6H PRN PRN Reason: Nausea/Vomiting Potassium Chloride (K-Dur) 20 meq PO BID-[facility] Last Admin: 11/29/18 10:21 Dose: 20 meq Pyridoxine HCl (Vitamin B 6) 100 mg PO DAILY [facility] Last Admin: 11/29/18 10:20 Dose: 100 mg Sodium Chloride (Flush - Normal Saline) 10 ml IVF Q12HR [facility] Last Admin: 11/29/18 10:24 Dose: 10 ml Sodium Chloride (Flush - Normal Saline) 10 ml IVF PRN PRN PRN Reason: Saline Flush Torsemide (Demadex) 40 mg PO 0900,1400 [facility] Last Admin: 11/29/18 10:17 Dose: 40 mg
[2018-11-29] MEDS: Insulin Glargine 10 UNITS in Pre-Filled Syringe 1 EACH SC SCH (20:43)
[2018-11-29] MEDS: Amiodarone 200 MG TAB PO SCH (20:45)
[2018-11-30] MEDS: Lorazepam 0.5 MG TAB PO PRN (01:44)
[2018-11-30 06:18] LABS: BUN (Urea Nitrogen) 43 mg/dL (8.4-25.7); Calc. Creatinine Clearance 63 mL/min (70-130); Calcium 8.3 mg/dL (7.8-10.44); Estimated GFR-MDRD 76; Glucose 169 mg/dL (83-110); Magnesium 1.3 mg/dL (1.6-2.6)
[2018-11-30 06:27] LABS: Anion Gap 13 mmol/L (10-20); Chloride 85 mmol/L (98-107); Potassium 3.6 mmol/L (3.5-5.1); Sodium 139 mmol/L (136-145)
[2018-11-30 06:34] LABS: Carbon Dioxide 45 mmol/L (23-31)
[2018-11-30] MEDS: Cyanocobalamin (Vitamin B-12) 1,000 MCG TAB PO SCH (08:37)
[2018-11-30] MEDS: Amoxicillin/Potassium Clav 875 MG TAB PO SCH (08:37)
[2018-11-30] MEDS: pyridOXINE 50 MG (B6) TAB PO SCH (08:37)
[2018-11-30] MEDS: Atorvastatin Calcium 20 MG TAB PO SCH (08:37)
[2018-11-30] MEDS: Magnesium Oxide 400 MG TAB PO SCH (08:37)
[2018-11-30] MEDS: Potassium Chloride 20 MEQ TAB PO SCH (08:37)
[2018-11-30] MEDS: Finasteride 5 MG TAB PO SCH (08:37)
[2018-11-30] MEDS: Levothyroxine Sodium 50 MCG TAB PO SCH (08:37)
[2018-11-30] MEDS: Loratadine 10 MG TAB PO SCH (08:38)
[2018-11-30] MEDS: Apixaban 2.5 MG TAB PO SCH (08:38)
[2018-11-30] MEDS: Donepezil HCl 10 MG TAB PO SCH (08:38)
[2018-11-30] MEDS: Digoxin 0.125 MG TAB PO SCH (08:38)
[2018-11-30] MEDS: Amiodarone 200 MG TAB PO SCH (08:38)
[2018-11-30] MEDS: Erythromycin Base 0.5% Oint 1 GM TUBE EA EYE SCH (08:42)
[2018-11-30] MEDS ORDERED: AcetaZOLAMIDE 250 MG TAB PO SCH (09:00)
--- NOTE | 2018-11-30 09:53 | PRG ---
DATE OF SERVICE: 11/30/2018 SUBJECTIVE: Mr. Owens had somewhat of a restless night, had some trouble breathing off and on last night according to his . He got some Ativan late last night and is still sleepy, probably mostly from the Ativan. OBJECTIVE: LUNGS: Examination of his lungs are clear anteriorly and laterally. CARDIAC: Normal S1 and normal S2. ABDOMEN: Soft and nontender. EXTREMITIES: There is no significant edema. VITAL SIGNS: Blood pressure 104/55, pulse 70. ASSESSMENT: 1. End-stage heart failure. 2. Ventricular tachycardia, stable. 3. Coronary artery disease. PLAN: Attempts of placement are being made. The patient's prognosis is extremely poor. Goal of therapy is to try to reduce pain and suffering. Job ID: [id number]
[2018-11-30] MEDS: Torsemide 20 MG TAB PO SCH ×2 (09:55→14:02)
[2018-11-30] MEDS: HumaLOG 300 UNITS/3 ML VIAL SC PRN ×2 (09:55→13:07)
--- NOTE | 2018-11-30 11:40 | PDOC.PN ---
- Subjective Encounter Start Date: 11/30/18 Encounter Start Time: 08:50 Subjective: awake, ate his breakfast well -: at bedside -: not in distress - Objective Resuscitation Status - Order Detail: 11/23/18 21:58 Resuscitation Status Routine Resuscitation Status: DNAR: NO Resuscitation Discussed with: as verified by Er physician MEMO Reviewed: Yes Vital Signs & Weight: Vital Signs (12 hours) Temp Pulse Resp BP Pulse Ox 11/30/18 08:38 71 11/30/18 07:45 98.3 F 71 20 104/55 L 98 11/30/18 06:45 98 11/30/18 06:43 70 16 98 11/30/18 03:50 97.5 F L 70 15 110/57 L 98 11/30/18 02:44 96 11/30/18 00:10 74 12 Weight Admit Weight 167 lb 8.821 oz Weight 160 lb 9 oz Most Recent Monitor Data Heart Rate from ECG 70 NIBP 108/59 NIBP BP-Mean 75 Respiration from ECG 21 SpO2 96 I&O: 11/29/18 11/30/18 12/01/18 06:59 06:59 06:59 Intake Total 200 120 Balance 200 120 Result Diagrams: 11/24/18 04:12 11/30/18 04:28 Additional Labs: Accuchecks 11/30/18 11/30/18 11/29/18 11:31 05:13 20:39 POC Glucose 152 H 175 H 300 H 11/29/18 17:28 POC Glucose 190 H Phys Exam - Physical Examination HEENT: PERRLA dry mucosa Neck: no JVD, supple Respiratory: no wheezing, no rales Cardiovascular: RRR, no significant murmur Gastrointestinal: soft, non-tender, positive bowel sounds Musculoskeletal: pulses present, edema present edema in upper thigh and scrotum, is receding and better now Neurological: non-focal, moves all 4 limbs bka+ Dx/Plan (1) Ventricular tachycardia Code(s): I47.2 - VENTRICULAR TACHYCARDIA Status: Acute Comment: has AICD, stable, on amiodarone (2) Acute on chronic systolic (congestive) heart failure Code(s): I50.23 - ACUTE ON CHRONIC SYSTOLIC (CONGESTIVE) HEART FAILURE Status : Acute Comment: ef of 15% with mod mitral regurg and severe pulm htn (3) AICD (automatic cardioverter/defibrillator) present Code(s): Z95.810 - PRESENCE OF AUTOMATIC (IMPLANTABLE) CARDIAC DEFIBRILLATOR Status: Chronic (4) Anemia Code(s): D64.9 - ANEMIA, UNSPECIFIED Status: Chronic (5) Atrial fibrillation Code(s): I48.91 - UNSPECIFIED ATRIAL FIBRILLATION Status: Chronic Comment: paroxysmal (6) Diabetes mellitus type 2 Code(s): E11.9 - TYPE 2 DIABETES MELLITUS WITHOUT COMPLICATIONS Status: Chronic (7) Dyslipidemia Code(s): E78.5 - HYPERLIPIDEMIA, UNSPECIFIED Status: Chronic (8) HYPERTENSION Status: Chronic (9) Hypothyroidism Code(s): E03.9 - HYPOTHYROIDISM, UNSPECIFIED Status: Chronic Qualifiers: Hypothyroidism type: unspecified Qualified Code(s): E03.9 - Hypothyroidism , unspecified (10) PAD (peripheral artery disease) Code(s): I73.9 - PERIPHERAL VASCULAR DISEASE, UNSPECIFIED Status: Chronic Comment: h/o R BKA (11) LITO (acute kidney injury) Code(s): N17.9 - ACUTE KIDNEY FAILURE, UNSPECIFIED Status: Acute (12) Acute encephalopathy Code(s): G93.40 - ENCEPHALOPATHY, UNSPECIFIED Status: Resolved - Plan awaiting skilled placement -: hemostable -: add acetozolamide, reduce demadex, co2 is going up -: on amiodarone 200mg bid, eliquis, lipitor, dig, proscar, aricept, lantus -: correction prognosis is poor, d/w at bedside * . Review of Systems - Medications/Allergies Allergies/Adverse Reactions: Allergies Allergy/AdvReac Type Severity Reaction Status Date / Time YARI Inhibitors Allergy Mild Verified 11/24/18 02:17 ARB-Angiotensin Receptor Allergy Mild Verified 11/24/18 02:17 Antagonist Beta-Blockers Allergy Mild Verified 11/24/18 02:17 (Beta-Adrenergic Bloc Medications: Current Medications Acetaminophen (Tylenol) 650 mg PO Q4H PRN PRN Reason: Headache/Fever/Mild Pain (1-3) Last Admin: 11/28/18 14:27 Dose: 650 mg Acetazolamide (Diamox) 250 mg PO BID [facility] Last Admin: 11/30/18 09:55 Dose: 250 mg Albuterol/Ipratropium (Duoneb) 3 ml NEB Q6H PRN PRN Reason: SOB &/or Wheezing Last Admin: 11/25/18 16:49 Dose: 3 ml Albuterol/Ipratropium (Duoneb) 3 ml NEB [id number] [facility] Last Admin: 11/30/18 06:43 Dose: 3 ml Amiodarone HCl (Cordarone) 200 mg PO BID [facility] Last Admin: 11/30/18 08:38 Dose: 200 mg Amoxicillin/Clavulanate Potassium (Augmentin) 875 mg PO Q12HR [facility] Stop: 11/30/18 21:01 Last Admin: 11/30/18 08:37 Dose: 875 mg Apixaban (Eliquis) 2.5 mg PO BID [facility] Last Admin: 11/30/18 08:38 Dose: 2.5 mg Artificial Tears (Tears Naturale) 2 drop EA EYE Q4H PRN PRN Reason: Dry Eyes Last Admin: 11/25/18 20:13 Dose: 2 drop Atorvastatin Calcium (Lipitor) 20 mg PO DAILY [facility] Last Admin: 11/30/18 08:37 Dose: 20 mg Azelastine HCl (Azelastine) 1 ml NS BID PRN PRN Reason: Allergies Cyanocobalamin (Vitamin B-12) 1,000 mcg PO DAILY [facility] Last Admin: 11/30/18 08:37 Dose: 1,000 mcg Dextrose/Water (Dextrose 50%) 25 gm SLOW IVP PRN PRN PRN Reason: Hypoglycemia Digoxin (Lanoxin) 0.125 mg PO DAILY [facility] Last Admin: 11/30/18 08:38 Dose: 0.125 mg Donepezil HCl (Aricept) 10 mg PO DAILY [facility] Last Admin: 11/30/18 08:38 Dose: 10 mg Erythromycin (Erythromycin Base 0.5% Oint) 1 gm EA EYE BID [facility] Last Admin: 11/30/18 08:42 Dose: 1 gm Finasteride (Proscar) 5 mg PO DAILY [facility] Last Admin: 11/30/18 08:37 Dose: 5 mg Glucagon (Glucagon) 1 mg IM PRN PRN PRN Reason: Hypoglycemia Guaifenesin (Robitussin Sf) 400 mg PO Q4H PRN PRN Reason: Chest Congestion/Secretions Last Admin: 11/27/18 20:58 Dose: 400 mg Dextrose/Water (D5w) 1,000 mls @ 0 mls/hr IV .Q0M PRN PRN Reason: Hypoglycemia Insulin Glargine 10 units/ (Miscellaneous Medication) 0.1 mls @ 0 mls/hr SC HS [facility] Last Admin: 11/29/18 20:43 Dose: 0.1 mls Insulin Human Lispro (Humalog) 0 units SC .MILD SLIDING SCALE PRN PRN Reason: Mild Correctional Scale Last Admin: 11/30/18 09:55 Dose: 2 unit Levothyroxine Sodium (Synthroid) 50 mcg PO QAM [facility] Last Admin: 11/30/18 08:37 Dose: 50 mcg Loratadine (Claritin) 10 mg PO DAILY [facility] Last Admin: 11/30/18 08:38 Dose: 10 mg Lorazepam (Ativan) 0.5 mg PO Q4H PRN PRN Reason: Anxiety Last Admin: 11/30/18 01:44 Dose: 0.5 mg Magnesium Oxide (Magnesium Oxide) 400 mg PO DAILY [facility] Last Admin: 11/30/18 08:37 Dose: 400 mg Ondansetron HCl (Zofran Odt) 4 mg PO Q6H PRN PRN Reason: Nausea/Vomiting Ondansetron HCl (Zofran) 4 mg IVP Q6H PRN PRN Reason: Nausea/Vomiting Potassium Chloride (K-Dur) 20 meq PO BID-[facility] Last Admin: 11/30/18 08:37 Dose: 20 meq Pyridoxine HCl (Vitamin B 6) 100 mg PO DAILY [facility] Last Admin: 11/30/18 08:37 Dose: 100 mg Sodium Chloride (Flush - Normal Saline) 10 ml IVF Q12HR [facility] Last Admin: 11/30/18 08:41 Dose: 10 ml Sodium Chloride (Flush - Normal Saline) 10 ml IVF PRN PRN PRN Reason: Saline Flush Torsemide (Demadex) 20 mg PO BID@0900,1400 [facility] Last Admin: 11/30/18 09:55 Dose: 20 mg
[2018-11-30 11:54] VITALS: BP 111/56; TEMP 98
--- NOTE | 2018-11-30 14:29 | DIS ---
DATE OF ADMISSION: 11/23/2018 DATE OF DISCHARGE: 11/30/2018 DISCHARGE DISPOSITION: To [facility]. PRIMARY DISCHARGE DIAGNOSES: 1. Ventricular tachycardia with multiple firings from automated implantable cardioverter defibrillator. 2. Acute on chronic congestive heart failure exacerbation with systolic dysfunction and ejection fraction of 15%, stage D. 3. Moderate mitral regurgitation. 4. Severe pulmonary hypertension. 5. Chronic anemia. 6. Chronic paroxysmal atrial fibrillation. 7. Diabetes mellitus type 2. 8. Dyslipidemia. 9. Hypertension. 10. Hypothyroidism. 11. Peripheral vascular disease. 12. Acute kidney injury. 13. Acute encephalopathy. PROCEDURES DONE DURING HOSPITALIZATION: Chest x-ray done showed pulmonary vascular congestion with right pleural effusion. H and H of 12 and 39, platelet count 210, MCV is 98. Discharge BUN and creatinine 43 and 0.9. Has a CO2 of 45 on the day of discharge. Troponin I was indeterminate, peaking up to 0.09. Albumin 2.6. DISCHARGE MEDICATIONS: 1. Eliquis 2.5 mg p.o. twice daily. 2. Albuterol nebulizer three times daily. 3. Atorvastatin 20 mg p.o. daily. 4. Vitamin B12 500 mcg p.o. daily. 5. Digoxin 0.125 mg p.o. daily. 6. Aricept 10 mg daily. 7. Fexofenadine 180 mg p.o. daily. 8. Levemir 10 units subcu at bedtime. 9. Synthroid 50 mcg p.o. daily. 10. K-Dur 20 mEq p.o. twice daily. 11. Vitamin B6 100 mg p.o. daily. 12. Diamox 250 mg p.o. twice daily for another 10 days. 13. Amiodarone 200 mg p.o. twice daily for 10 days, then 200 mg daily thereafter. 14. Augmentin 875 mg p.o. twice daily for another two days. 15. Finasteride 5 mg p.o. daily. 16. Magnesium oxide 400 mg p.o. daily. 17. Demadex 20 mg p.o. twice daily. ALLERGIES: ALLERGIC TO YARI INHIBITORS, ARBS, AND BETA BLOCKERS. INPATIENT CONSULT: Dr. Iraheta for Cardiology, Dr. Eric for Pulmonology. DISCHARGE PLAN: The patient to follow up with primary care physician in one week and Dr. Iraheta as advised. BRIEF COURSE DURING HOSPITALIZATION: The patient initially was brought to emergency room after he passed out. The patient has had intractable V-tach with multiple shocks delivered in the ER. This was ascertained with AICD interrogation. He had these episodes on arrival in the ER and at home. The patient was loaded up on amiodarone. He has known history of CHF with ejection fraction of around 15%. The patient is allergic to YARI inhibitors and beta blockers limiting optimal medical therapy. He was closely monitored initially in ICU, later downgraded to telemetry. He was also gently diuresed. His CO2 on the day of discharge is 45 and has been placed on acetazolamide twice daily for a period of 10 days and his Demadex has been reduced to 20 mg twice daily at the time of discharge. He has been cleared by Dr. Iraheta for discharge. The patient's overall prognosis is very poor. His and family are clearly aware of this. He is being discharged to [facility]. A total of 35 minutes spent on discharge plan. Please see a [id number] documentation for the day of discharge on [email or web address]. Job ID: [id number] [facility]
== END 2018-11-30 15:19 | DRG 280 ==
LOC: ERS 19:48 → CCU 22:11 → 2NO 11-24 19:38
PROVIDERS: ADMIT Hospitalist; ATTEND Hospitalist
DX: I47.1 Supraventricular tachycardia (principal); G93.41 Metabolic encephalopathy; I21.A1 Myocardial infarction type 2; J96.01 Acute respiratory failure with hypoxia; I50.23 Acute on chronic systolic (congestive) heart failure; J44.1 Chronic obstructive pulmonary disease with (acute) exacerbation; N17.9 Acute kidney failure, unspecified; I42.9 Cardiomyopathy, unspecified; I11.0 Hypertensive heart disease with heart failure; Z66 Do not resuscitate; E03.9 Hypothyroidism, unspecified; F03.90 Unspecified dementia, unspecified severity, without behavioral disturbance, psychotic disturbance, mood disturbance, and anxiety; I25.10 Atherosclerotic heart disease of native coronary artery without angina pectoris; I48.2 Chronic atrial fibrillation; E11.51 Type 2 diabetes mellitus with diabetic peripheral angiopathy without gangrene; D64.9 Anemia, unspecified; I48.0 Paroxysmal atrial fibrillation; I34.0 Nonrheumatic mitral (valve) insufficiency; E78.5 Hyperlipidemia, unspecified; F41.9 Anxiety disorder, unspecified; E87.6 Hypokalemia; Z88.8 Allergy status to other drugs, medicaments and biological substances; Z79.899 Other long term (current) drug therapy; Z89.511 Acquired absence of right leg below knee; Z87.891 Personal history of nicotine dependence; Z79.01 Long term (current) use of anticoagulants; Z95.810 Presence of automatic (implantable) cardiac defibrillator; Z79.84 Long term (current) use of oral hypoglycemic drugs
CPT/HCPCS: 36415; 36416; 71045; 80048; 80053; 80162; 82553; 83605; 83690; 83735; 84484; 85025; 93005; 94640; 96361; 96365; 96375; 99292; J0282; J1200; J1825; J3475; J3480; J7070; J7620

== ENCOUNTER 2018-12-21 11:28 | Inpatient (IN) | payer MEDICARE ==
[2018-12-21] MEDS ORDERED: Clindamycin/D5W 900 mg/50 ml Premix Bag ONE (12:08)
[2018-12-21] MEDS ORDERED: Piperacillin/Tazobactam 4.5 GM VIAL ONE (12:08)
[2018-12-21] MEDS ORDERED: Amiodarone 150 MG/3 ML VIAL ONE (12:17)
[2018-12-21 12:24] LABS: #Basophils 0.2 thou/uL (0.0-0.2); #Eosinphils 0.1 thou/uL (0.0-0.7); #Lymphocytes 1.1 thou/uL (1.20-3.40); #Neutrophils 12.1 thou/uL (1.40-6.50); %Basophils 1.5 % (0.0-1.0); %Eosinophils 0.6 % (0.0-10.0); %Lymphocytes 7.4 % (21.0-51.0); %Monocytes 7.1 % (0.0-10.0); %Neutrophils 83.5 % (42.0-75.0); Hemoglobin 14.3 g/dL (14.0-18.0); Mean Corpuscular HGB CONC 30.7 g/dL (32.0-36.0); Mean Corpuscular Hemoglobin 30.4 pg (27.0-31.0); Mean Platelet Volume 9.5 fL (7.4-10.4); Platelet Count 249 thou/uL (130-400); RBC Distribution Width 15.4 % (11.5-14.5); White Blood Cell (WBC) Count 14.5 thou/uL (4.8-10.8)
[2018-12-21 12:29] LABS: ALT (SGPT) 16 U/L (8-55); AST (SGOT) 22 U/L (5-34); Albumin 2.4 g/dL (3.4-4.8); Alkaline Phosphatase 104 U/L (40-150); Anion Gap 17 mmol/L (10-20); BUN (Urea Nitrogen) 58 mg/dL (8.4-25.7); Bilirubin, Total 0.6 mg/dL (0.2-1.2); Calc. Creatinine Clearance 0 mL/min (70-130); Calcium 8.6 mg/dL (7.8-10.44); Carbon Dioxide 24 mmol/L (23-31); Chloride 98 mmol/L (98-107); Estimated GFR-MDRD 30; Globulin 2.8 g/dL (2.4-3.5); Glucose 144 mg/dL (83-110); Potassium 5.8 mmol/L (3.5-5.1); Protein, Total 5.2 g/dL (5.8-8.1); Sodium 133 mmol/L (136-145)
[2018-12-21 12:50] LABS: CKMB 6.1 ng/mL (0-6.6)
[2018-12-21] MEDS ORDERED: Amiodarone 450 MG, Admixture Fee 1 EACH in Dextrose 5% in Water 250 ML IVPB SCH (13:15)
[2018-12-21] MEDS ORDERED: Norepinephrine 8 MG/0.9% NS 250 ML ONE (13:43)
--- NOTE | 2018-12-21 13:58 | RAD ---
EXAM: CHEST ONE VIEW HISTORY: Sepsis. Central line placement. COMPARISON: 11/28/2018. FINDINGS: A multilead left subclavian AICD device is again noted in place. Pulmonary vasculature is within norm al limits. The cardiac silhouette remains enlarged. There is a small left pleural effusion. Pleural-parenchymal changes are seen at the right lung base likely due to small right pleural effusio n and atelectasis. Superimposed pneumonia at the right lung base cannot be entirely excluded. Degenerative changes are seen in the spine. There is suggestion of remote fracture involving the left proximal humerus. Vascular calcifications are seen in the thoracic aorta. IMPRESSION: 1. Bilateral pleural effusions and associated atelectasis greater on the right. However, the pleural and parenchymal changes do appear mildly improved from the prior study. Superimposed pneumonia at the right lung base cannot be entirely excluded. 2. Mild nonspecific prominence of interstitial markings.
--- NOTE | 2018-12-21 14:00 | RAD ---
Left foot 3 views INDICATION: Left foot pain COMPARISON: August 23, 2018 FINDINGS: Scattered degenerative change and diffuse osteopenia stable. 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 The chronic periosteal reaction seen involving the metatarsals is stable. Vascular calcifications are similar appearing. Enthesopathic change of the calcaneus is st able. No destructive osteoarthrosis is seen to suggest presence of osteomyelitis by radiography. IMPRESSION: No acute osseous abnormality.
[2018-12-21] MEDS ORDERED: Acetaminophen 325 MG TAB PO PRN (14:24)
[2018-12-21] MEDS ORDERED: Amiodarone 450 MG in Dextrose 5% in Water 250 ML IVPB SCH (15:00)
[2018-12-21] MEDS ORDERED: Norepinephrine 8 MG/0.9% NS 250 ML IVPB SCH (15:00)
[2018-12-21 15:22] LABS: Digoxin 2.54 ng/mL (0.8-2.0)
[2018-12-21 15:25] LABS: Troponin I 0.185 ng/mL (< 0.028)
--- NOTE | 2018-12-21 15:37 | PDOC.PULCN ---
Pulmonology Consult: HPI - Date of Consult Date: 12/21/18 Time: 15:20 - Consult Details Reason for Consult: Septic shock requiring IV blood pressure support - History of Present Illness HPI: BEN CHOI is a 83 year-old M with a hx of DM2, CAD, HFrEF with 15% EF , and severe PAD. He is s/p R BKA and has had a non healing diabetic foot ulcer on his L heel for the past 2 years. At wound care today he was noted to be tachycardic and hypotensive. After discussion with Dr. Llamas, he was sent to the ER. In the ER found to be in septic shock likely related to his foot wound. He was bolused 2L NS and started on levophed via central line. He was also given Vanc, Zosyn, and Clinda in the ED. Pulmonology Consult: ROS - Review of Systems Constitutional: negative: fever, chills Cardiovascular: negative: chest pain, palpitations, edema Respiratory: productive cough, short of breath Pulmonology Consult: [facility] Source: patient, family () Past Medical History: CAD, DM2, hypothyroid, HTN, afib Surgical hx - R BKA - Family History Family history: reviewed and not pertinent - Social History Smoking Status: Former smoker Alcohol Use: weekly Drug Use History: none Living Situation: [facility] Pulmonology Consult: Meds - Medications MAR Reviewed: Yes Medications: Current Medications Acetaminophen (Tylenol) 650 mg PO Q4H PRN PRN Reason: Headache/Fever/Mild Pain (1-3) Apixaban (Eliquis) 2.5 mg PO BID ANA Atorvastatin Calcium (Lipitor) 20 mg PO HS ANA Digoxin (Lanoxin) 0.125 mg PO DAILY ANA Finasteride (Proscar) 5 mg PO DAILY ANA Amiodarone HCl 450 mg/Miscellaneous Medication 1 each/ Dextrose/Water 259 mls @ 0 mls/hr IVPB INF ANA; Protocol Piperacillin Sod/Tazobactam (Sod 2.25 gm/ Sodium Chloride) 100 mls @ 200 mls/ hr IVPB 0400,1200,2000 ANA Vancomycin HCl 1 gm/ Device 200 mls @ 200 mls/hr IVPB 1100,2300 ANA Amiodarone HCl 450 mg/ (Dextrose/Water) 259 mls @ 0 mls/hr IVPB INF ANA; Protocol Norepinephrine Bitartrate (Levophed) 250 mls @ 0 mls/hr IVPB INF ANA; Protocol Levothyroxine Sodium (Synthroid) 50 mcg PO 0600 ANA - Allergies Allergies/Adverse Reactions: Allergies Allergy/AdvReac Type Severity Reaction Status Date / Time YARI Inhibitors Allergy Mild Verified 11/24/18 02:17 ARB-Angiotensin Receptor Allergy Mild Verified 11/24/18 02:17 Antagonist Beta-Blockers Allergy Mild Verified 11/24/18 02:17 (Beta-Adrenergic Bloc Pulmonology Consult: PE - Physical Exam Deviation from normal: Moderate respiratory distress HEENT: PERRLA, moist MMs Neck: no nodes Deviation from normal: Muffled heart sounds, tachycardic Respiratory: clear to auscultation anteriorly Gastrointestinal: soft, non-tender, no distention Deviation from normal: Left foot cold, no palpable pulse, foot wound on heel with erythema Neurological: non-focal Deviation from normal: A&O x2 Skin: no rash Pulmonology Consult: Results - Labs Result Diagrams: 12/21/18 11:49 12/21/18 11:49 - Radiology Interpretation Chest x-ray Status: image reviewed by me, report reviewed by me Pulmonology Consult: A/P - Problem (1) Septic shock Current Visit: Yes Code(s): A41.9 - SEPSIS, UNSPECIFIED ORGANISM; R65.21 - SEVERE SEPSIS WITH SEPTIC SHOCK Status: Acute (2) Hyperkalemia Current Visit: Yes Code(s): E87.5 - HYPERKALEMIA Status: Acute (3) LITO (acute kidney injury) Current Visit: No Code(s): N17.9 - ACUTE KIDNEY FAILURE, UNSPECIFIED Status : Acute (4) AICD (automatic cardioverter/defibrillator) present Current Visit: No Code(s): Z95.810 - PRESENCE OF AUTOMATIC (IMPLANTABLE) CARDIAC DEFIBRILLATOR Status: Chronic (5) Diabetes mellitus type 2 Current Visit: No Code(s): E11.9 - TYPE 2 DIABETES MELLITUS WITHOUT COMPLICATIONS Status: Chronic (6) Diabetic foot ulcer Current Visit: No Code(s): E11.621 - TYPE 2 DIABETES MELLITUS WITH FOOT ULCER ; L97.509 - NON-PRESSURE CHRONIC ULCER OTH PRT UNSP FOOT W UNSP SEVERITY Status: Chronic Qualifiers: Laterality: left (7) PAD (peripheral artery disease) Current Visit: No Code(s): I73.9 - PERIPHERAL VASCULAR DISEASE, UNSPECIFIED Status: Chronic (8) Elevated digoxin level Current Visit: Yes Code(s): R78.89 - FINDING OF OTH SUBSTANCES, NOT NORMALLY FOUND IN BLOOD Status: Acute - Time Time: 50% of the time was spent in coordination of care (as documented) at patient's floor/unit and/or counseling patient. Time with Patient: greater than 50 minutes - Plan Plan: 1. Septic shock - adequate IVF in ED, titrate levophed as needed. - continue IV abx - repeat CBC and lactic acid in am - blood cultures pending 2. Diabetic foot wound - will consult wound care. Consider CV surg consult when hemodynamically stable 3. LITO - monitor function in AM, will likely improve with IVF I have seen and examined Mr. Choi and have reviewed his records and orders. Agree that patient is most likely in septic shock from Left foot wound infection. Also has a severe cardiomyopathy contributing to the process. He and his are very realistic about the severity of his illness. The patient has a DNAR order in place. He will receive levophed for BP support and has been started on broad spectrum IV abx by hospitalist group. Ultimately may need AKA on left, but he is nowhere near medically stable for that at the current time.
[2018-12-21] MEDS ORDERED: Dextrose 5% in Water 1,000 ML IV PRN (15:40)
[2018-12-21] MEDS ORDERED: Dextrose 50% Abboject 50 ML SYRINGE SLOW IVP PRN (15:40)
[2018-12-21] MEDS ORDERED: HumaLOG 300 UNITS/3 ML VIAL SC PRN (15:40)
[2018-12-21 16:13] LABS: Lactic Acid 1.7 mmol/L (0.5-2.2)
[2018-12-21 18:11] LABS: Troponin I 0.206 ng/mL (< 0.028)
[2018-12-21 18:12] VITALS: BMI 21.7
[2018-12-21] MEDS ORDERED: Atorvastatin Calcium 20 MG TAB PO SCH (21:00)
[2018-12-21] MEDS ORDERED: Apixaban 2.5 MG TAB PO SCH (21:00)
[2018-12-21] MEDS: Piperacillin/Tazobactam 2.25 GM in Sodium Chloride 0.9% 100 ML IVPB SCH (21:14)
--- NOTE | 2018-12-21 21:26 | HP ---
CHIEF COMPLAINT: Hypotension. HISTORY OF PRESENT ILLNESS: This patient is an 83-year-old male who was recently admitted to this hospital with pneumonia, was subsequently discharged to rehab, was home for about a week when he developed recurrent episodes of ventricular tachycardia with defibrillator discharges. Subsequently, he was [facility] to [facility]. The patient has a history of severe cardiomyopathy with an EF about 15%, as well as severe pulmonary hypertension and has been on oxygen. He also has severe peripheral vascular disease and had a right lower extremity BKA about 9 years ago and has been dealing with open wounds on his left foot for about 2 years. He has lesions on the dorsum of the foot as well as the lateral aspect of the foot and over the last few days the patient has had a new lesion open up on the medial aspect of the left heel. The patient has been following at Wound Care and has been fairly stable. His is present and is helping with the history as the patient has some cognitive deficits due to dementia. She reports that over the last couple of days, the patient has stopped eating and when he went to wound care today, he was noted to be significantly hypotensive and he was sent to the emergency department. The defibrillator has apparently discharged several times since the last discharge as well. The patient himself reports that he is comfortable and has no other specific complaints. REVIEW OF SYSTEMS: Limited by the patient's dementia; however, the patient's reports again that he has had very poor appetite and no p.o. intake over the last several days. She also reports that he is largely incapable of sleeping more than about 15 minutes at a time and constantly feels the need to sit up on the edge of the bed, but he does not specifically report shortness of breath or orthopnea at those times. PAST MEDICAL HISTORY: Notable for atrial fibrillation; diabetes mellitus type 2, hypothyroidism, dementia, severe cardiomyopathy with EF around 15%, ventricular tachycardia with AICD in place, coronary artery disease, hyperlipidemia, severe peripheral vascular disease, dementia and anxiety. PAST SURGICAL HISTORY: Cataracts, right BKA, pacemaker defibrillator placement. SOCIAL HISTORY: The patient has a history of social drinking, nothing excessive. No drugs. He is a former smoker. Quit more than 10 years ago. He is a DNR and his is his surrogate decision maker. ALLERGIES: YARI INHIBITORS, ARBS, BETA BLOCKERS. MEDICATIONS: 1. Eliquis 2.5 mg b.i.d. 2. Digoxin 125 mcg daily. 3. Atorvastatin 20 mg daily. 4. Torsemide 20 mg p.o. b.i.d. 5. Potassium 20 mEq b.i.d. 6. Levothyroxine 50 mcg p.o. daily. 7. Fexofenadine 180 mg p.o. daily p.r.n. 8. B6 100 mg p.o. daily. 9. Finasteride 5 mg daily. 10. Aricept 10 mg daily. 11. B12 500 mcg daily. PHYSICAL EXAMINATION: INITIAL VITALS: BP was 70/48, pulse 132, respirations 22, most recent vitals 92/64, pulse 108, respirations 20, O2 saturation 100 L on non-rebreather. GENERAL APPEARANCE: Age-appropriate male. He appears to be generally comfortable. He is lying supine in the ER bed with nasal cannula oxygen on a non-rebreather in place as he is minimally somnolent, but otherwise conversant. HEENT: Pupils are reactive. He has no OP lesions. HEART: Tachycardic without a significant murmur noted. LUNGS: Notable for some upper airway rales that somewhat clear with cough. Otherwise, they are diminished. I do not hear other specific wheezes or rales at this time. ABDOMEN: Soft, nontender, and nondistended. No masses. No organomegaly. EXTREMITIES: The right BKA stump looks good. Left lower extremity, there is a large 2 x 3 inch ulcer on the dorsum of the left foot. There is another that is about 2 x 3 cm on the medial left heel and there are couple that are about 2 cm on the lateral aspect of the foot with a significant eschar. The patient's upper extremities and hands are cool with some mottling. LABORATORY DATA: White count 14.5, hemoglobin 14.3, platelets 249. Sodium 133, potassium 5.8, chloride 98, CO2 24, BUN 58, creatinine 2.09, glucose 144, lactic acid 2.6, calcium 8.6, AST is 22, ALT is 16, troponin is 0.238, albumin 2.4. IMAGING: Chest x-ray, bilateral pleural effusions with atelectasis, greater on the right. Parenchymal changes appear mildly improved from the prior study. Superimposed pneumonia right lung base cannot be entirely excluded. Mild nonspecific prominence of interstitial markings: Foot x-ray, no acute osseous abnormality. EKG is electronically paced. IMPRESSION AND PLAN: 1. Sepsis with septic shock secondary to likely left foot infection secondary to chronic wounds. The patient has received 2 L of fluid resuscitation in the emergency department, has been started on Levophed. His pressures have improved to an acceptable range at this time. We will continue broad-spectrum antibiotics and some fluid resuscitation. The patient is admitted to the ICU, consulting Pulmonary Critical Care. Case has been discussed. 2. [id number] renal failure. The patient's typical glomerular filtration rate is 60s to 70s. He is currently at 30, likely due to the sepsis. He has had fluid resuscitation, currently on pressors. 3. Hyperkalemia secondary to the renal insufficiency and supplements that the patient takes, those will be held. He has had significant fluid resuscitation. We will recheck soon. 4. Elevated troponin, in normal range for this patient's age and renal function. 5. Ventricular tachycardia. The patient has a history of ventricular tachycardia, has a defibrillator in place. Cardiology has been consulted and the case was discussed with them. We will follow the patient in the ICU. 6. Severe cardiomyopathy. The patient has required significant fluid resuscitation. He has a severely reduced ejection fraction. We would be cautious with fluids going forward. 7. Atrial fibrillation. Continue with digoxin and Eliquis. 8. Hyperlipidemia. Continue atorvastatin. 9. Hypothyroidism. Continue levothyroxine. 10. Dementia. Continue Aricept. 11. Left foot wounds, infected, covered with vancomycin and Zosyn. We will have wound care evaluate the patient. 12. Severe peripheral vascular disease. The patient's overall condition precludes any aggressive interventions from the surgical standpoint. 13. Disposition. The patient's overall prognosis is very poor and his is aware of this. The patient is a DNR. Job ID: [id number]
--- NOTE | 2018-12-21 21:31 | CON ---
DATE OF CONSULTATION: 12/21/2018 REASON FOR CONSULTATION: VT and heart failure. PRIMARY DRILLING FIELD SPECIALIST: Dr. Farheen Iraheta. HISTORY OF PRESENT ILLNESS: Mr. Owens is a very pleasant 83-year-old white gentleman, who comes to the hospital for hypotension. He has severe peripheral vascular disease and has a wound on his left leg. He was found to be tachycardic and hypotensive, thought to be septic from his history from his foot ulcer, so he was referred to the ER, where he was found to be hypotensive. He was given 2 L of normal saline and started on Levophed and admitted with broad-spectrum antibiotics. Mr. Owens has significant history of peripheral vascular disease. He has had a right BKA already and nonhealing ulcer in his left heel which has been going on for the past 2 years. He has nonrevascularizable peripheral vascular disease. He also has severe systolic heart failure with EF estimated about 10% to 15%. He has an AICD in place and was admitted recently for episodes of VT that required him to be on amiodarone and lidocaine, currently only on amiodarone. When he was in the ER, he was found to have a wide-complex tachycardia, which was thought to be ventricular tachycardia, so Cardiology was consulted for this. He does have an underlying wide rhythm which is mostly paced. PAST MEDICAL HISTORY: 1. Type 2 diabetes. 2. Hypothyroidism. 3. Dementia. 4. AICD placement. 5. Hyperlipidemia. 6. Coronary artery disease. 7. Peripheral vascular disease. 8. VT. 9. Nonhealing ulcer in the left foot. 10. Subdural hematoma in the past. 11. Bladder cancer requiring resection in the past. 12. BPH. 13. Hypertension. 14. Chronic systolic heart failure. 15. Atrial fibrillation with chronic anticoagulation. SURGICAL HISTORY: 1. Cataract surgery. 2. Right BKA. 3. AICD placement. 4. Heart catheterizations in the past. 5. Bladder tumor resection. 6. Left knee surgery. 7. History of tracheostomy with PEG tube placed in the past. SOCIAL HISTORY: Quit smoking 10 years ago, half a glass of whiskey at night. Has not been seen in a while. No tobacco or drugs. FAMILY HISTORY: Noncontributory. ALLERGIES: YARI INHIBITORS, ARBS, BETA BLOCKERS CAUSING HYPOTENSION, NOT REALLY AN ALLERGY, BUT MORE OF A SIDE EFFECT. OUTPATIENT MEDICATIONS: 1. Vitamin B6. 2. Torsemide 20 mg b.i.d. 3. Potassium chloride 20 mEq b.i.d. 4. Magnesium oxide. 5. Levothyroxine 50 mcg a day. 6. DuoNeb. 7. Levemir 10 units subcu at bedtime. 8. Finasteride. 9. Fexofenadine. 10. Aricept. 11. Digoxin 0.125 daily. 12. Vitamin B12. 13. Azelastine. 14. Atorvastatin 20 mg a day. 15. Eliquis 2.5 mg b.i.d. 16. Amiodarone 200 mg b.i.d. 17. Albuterol 1.25 nebs t.i.d. 18. Acetazolamide. REVIEW OF SYSTEMS: A 12-point review of systems was done and was found to be negative unless stated in history of present illness. PHYSICAL EXAMINATION: VITAL SIGNS: Temperature 97.8, pulse 115, respiratory rate 19, saturating 96% on room air, and blood pressure of 79/61. GENERAL: Awake, alert. He is oriented to person, place, difficulty with time, in no distress. HEENT: Normocephalic and atraumatic. NECK: Supple. LUNGS: Clear. CARDIOVASCULAR: S1 and S2. No S3 or S4. ABDOMEN: Soft. EXTREMITIES: Right BKA. Left ulcer is seen. SKIN: Warm and dry. LABORATORY DATA: Laboratory work was reviewed. White count of 14, hemoglobin 14, hematocrit 46, platelet count 249. Chemistry was reviewed. Troponin is 0.23, 0.18, 0.20. Lactic acid was 2.6, down to 1.7. Sodium 133, potassium was 5.8 with a BUN 58, creatinine 2.0, GFR of 30. Digoxin was 2.5. Chest x-ray was reviewed, showed bilateral pleural effusions with atelectasis. Nonetheless, when it compared to yesterday, it showed lung markings. ASSESSMENT AND PLAN: 1. Septic shock. 2. History of peripheral vascular disease with nonhealing ulcer in the left foot. 3. Severe end-stage heart failure with ejection fraction estimated at 10% to 15%. 4. Ventricular tachycardia, on amiodarone. 5. Dementia. PLAN: 1. We will interrogate the AICD to see if this is really truly VT versus just him being tachycardic and the pacer mechanism of the AICD following this. Continue amiodarone for now. He is currently on an amiodarone drip. I think this is appropriate for now. 2. Continue Levophed for septic shock. 3. He would be high risk for any surgical intervention and unlikely to survive. The family is considering hospice care. At this time, they were talking about this. They may be amenable to having hospice care come by talk with them to see what is available to them. 4. Dr. Iraheta, his primary gas pumping station helper, will follow up in the morning. Job ID: [id number]
[2018-12-21] MEDS ORDERED: Vancomycin HCl 1 GM in Premix Bag 1 BAG IVPB SCH (23:00)
[2018-12-22 03:31] VITALS: TEMP 97.1
[2018-12-22] MEDS: Piperacillin/Tazobactam 2.25 GM in Sodium Chloride 0.9% 100 ML IVPB SCH (05:02)
[2018-12-22] MEDS ORDERED: Levothyroxine Sodium 50 MCG TAB PO SCH (06:00)
[2018-12-22] MEDS ORDERED: Finasteride 5 MG TAB PO SCH (09:00)
[2018-12-22] MEDS ORDERED: Digoxin 0.125 MG TAB PO SCH (09:00)
--- NOTE | 2018-12-25 11:23 | DIS ---
DATE OF ADMISSION: 12/21/2018 DATE OF DISCHARGE: 12/22/2018 DISCHARGE DIAGNOSES: 1. Sepsis. 2. Acute on chronic hypoxic respiratory failure. 3. Septic shock. 4. Hyperkalemia. 5. Ventricular tachycardia. 6. Severe cardiomyopathy with ejection fraction around 15%. 7. Atrial fibrillation. 8. Hyperlipidemia. 9. Hypothyroidism. 10. Severe dementia. 11. Multiple ulcers of the skin being blood pressure and vascular nature. 12. Severe peripheral vascular disease. HISTORY OF PRESENT ILLNESS: The patient is an 83-year-old male with the above-mentioned severe cardiomyopathy and severe peripheral vascular disease with chronic wounds including dorsum of his left foot. The patient had a history of ventricular tachycardia with AICD in place, dementia, and chronic respiratory failure with hypoxia requiring oxygen. The patient had several prior recent hospitalizations and rehab stays. The patient was following [facility] for left lower extremity wound and was noted to be hypotensive and subsequently transferred to the emergency department. The reported that his defibrillator had fired several times since his most recent discharge. The patient had stopped eating significantly a few days prior. The patient was noted to be hypotensive in the emergency department with a BP of 70/48, pulse was 132. His white count was 14.5, BUN 58, creatinine 2.09, lactic acid 2.6. The patient was awake, had his baseline dementia and was able to speak. HOSPITAL COURSE: The patient was admitted to the ICU with broad-spectrum antibiotics to cover sepsis and septic shock, felt to be possibly related to the left foot wound. He was given aggressive fluid resuscitation and failing that, was started on a Levophed drip. He was maintained on advanced levels of oxygen supplementation and seen in consultation by Pulmonary and Cardiology. The patient's prognosis was felt to be poor initially and the patient was well aware. He was noted to have hyperkalemia with potassium at 5.8 and worsening of his renal function above baseline with a slightly elevated digoxin level, which was minimal. The family was encouraged to pursue hospice and they were amenable to that. Unfortunately, the patient went into acute respiratory failure in the night in spite of the aggressive interventions with resuscitation efforts being that the patient was DNR. He was subsequently pronounced at 0440 hours on 12/22/2018 with spouse at the bedside. Job ID: [id number]
--- NOTE | 2018-12-29 10:27 | PQF ---
[employer] BEN Pinon DAVID R MD [id number] CLINICAL DOCUMENTATION CLARIFICATION FORM: POST DISCHARGE Addendum to original discharge summary date: ____ Late entry note date: __ DATE: 12/29/2018 ATTN: KOKO BAKER Please exercise your independent, professional judgment in responding to the clarification form. Clinical indicators are provided on the bottom of this form for your review Please check appropriate box(s): [ ] Acute Respiratory Failure: [ ] with Hypoxia[ ] with Hypercapnia [ x] Acute On Chronic Respiratory Failure: [ x ] with Hypoxia [ ] with Hypercapnia [ ] Acute Respiratory Failure due to: (etiology) [ ] ARDS (Acute Respiratory Distress Syndrome) [ ] Chronic Respiratory Failure only [ ] with Hypoxia [ ] with Hypercapnia [ ] Hypoxia [ ] Other diagnosis [ ] Unable to determine In addition, please specify: Present on Admission (POA): [ x ] Yes [ ] No [ ] Unable to determine For continuity of documentation, please document condition throughout progress notes and discharge summary. Thank You. CLINICAL INDICATORS - SIGNS / SYMPTOMS / LABS O2 SAT 80-100% ON NRB 90-100%ONCE ON FLOOR MARKETING ASSISTANT MANAGER AND PULMONARY HYPERTENSION RISK FACTORS History of home O2 use HX Tobacco abuse TREATMENTS: Oxygen Monitoring of oxygenation status MTDD
--- NOTE | 2019-01-06 17:55 | EKG ---
Test Reason : SEPSIS Blood Pressure : / mmHG Vent. Rate : 130 BPM Atrial Rate : 127 BPM P-R Int : 000 ms QRS Dur : 154 ms QT Int : 342 ms P-R-T Axes : 000 208 -29 degrees QTc Int : 503 ms Electronic ventricular pacemaker Confirmed by BELKIS KEMP DO ([id number]), development editor MARCK ALMANZA ([id number]) on 01/06/2019 5:54:54 PM Referred By: JUSTO Confirmed By:BELKIS KEMP DO
--- NOTE | 2019-01-06 18:40 | EKG ---
Test Reason : Blood Pressure : / mmHG Vent. Rate : 137 BPM Atrial Rate : 137 BPM P-R Int : 000 ms QRS Dur : 166 ms QT Int : 314 ms P-R-T Axes : 000 221 050 degrees QTc Int : 474 ms Suspect arm lead reversal, interpretation assumes no reversal V-tach Abnormal ECG Confirmed by BELKIS KEMP DO ([id number]), slot editor MARCK ALMANZA ([id number]) on 01/06/2019 6:39:34 PM Referred By: Confirmed By:BELKIS KEMP DO
== END 2018-12-22 04:40 | disposition expired | DRG 871 ==
LOC: ERS 11:28 → CCU 17:02
PROVIDERS: ADMIT Internal Medicine; ATTEND Internal Medicine
PROC: 06HY33Z Insertion of Infusion Device into Lower Vein, Percutaneous Approach (ICD-10-PCS; principal; 2018-12-21)
PROC: 3E033XZ Introduction of Vasopressor into Peripheral Vein, Percutaneous Approach (ICD-10-PCS; 2018-12-21)
DX: A41.9 Sepsis, unspecified organism (principal); R65.21 Severe sepsis with septic shock; J96.21 Acute and chronic respiratory failure with hypoxia; N17.9 Acute kidney failure, unspecified; I47.2 Ventricular tachycardia; I42.9 Cardiomyopathy, unspecified; I13.0 Hypertensive heart and chronic kidney disease with heart failure and stage 1 through stage 4 chronic kidney disease, or unspecified chronic kidney disease; I50.22 Chronic systolic (congestive) heart failure; L97.429 Non-pressure chronic ulcer of left heel and midfoot with unspecified severity; I48.91 Unspecified atrial fibrillation; Z79.01 Long term (current) use of anticoagulants; E78.5 Hyperlipidemia, unspecified; E03.9 Hypothyroidism, unspecified; F03.90 Unspecified dementia, unspecified severity, without behavioral disturbance, psychotic disturbance, mood disturbance, and anxiety; S91.302A Unspecified open wound, left foot, initial encounter; E11.51 Type 2 diabetes mellitus with diabetic peripheral angiopathy without gangrene; Z66 Do not resuscitate; I27.20 Pulmonary hypertension, unspecified; Z89.511 Acquired absence of right leg below knee; I25.10 Atherosclerotic heart disease of native coronary artery without angina pectoris; Z95.810 Presence of automatic (implantable) cardiac defibrillator; Z99.81 Dependence on supplemental oxygen; Z87.891 Personal history of nicotine dependence; F41.9 Anxiety disorder, unspecified; E87.5 Hyperkalemia; N18.9 Chronic kidney disease, unspecified; E11.22 Type 2 diabetes mellitus with diabetic chronic kidney disease; E11.621 Type 2 diabetes mellitus with foot ulcer; N40.0 Benign prostatic hyperplasia without lower urinary tract symptoms; Z85.51 Personal history of malignant neoplasm of bladder; Z88.8 Allergy status to other drugs, medicaments and biological substances
CPT/HCPCS: 36415; 36556; 71045; 80053; 80162; 82553; 83605; 84484; 85025; 87040; 93005; 96365; 96366; 96367; 96368; 96376; 97602; 99292; A4218; J0282; J2543; J3370; J3490; J7070